=== PATIENT | female | born 1985 | race Caucasian/White ===

== ENCOUNTER 2016-05-10 11:38 | Emergency (ER) | payer MEDICAID, OTHER ==
[~2016-05-10 11:38] MED LIST: ACET50TA PO; CEPH2CAP PO; DOCU10ELUD PO; IBUP600T26 PO; MAXI0.1O OS; MOM30SS PO; [UNRECOGNIZED DRUG - OTHER] PO
[2016-05-10] MEDS ORDERED: KETOROLAC 30 MG/ML VIAL (J1885) As Ordered ONE (12:57)
--- NOTE | 2016-05-10 13:52 | EDDOCDS ---
Physician Documentation [facility] Name: Fabiana Hutchinson Age: 30 yrs Sex: Female : 1985 Arrival Date: 05/10/2016 Time: 11:38 Bed 13 Private MD: NO PRIMARY PHYSICIAN, . Disposition: 05/10/16 12:52 Discharged to Home/Self Care. Impression: Spasmodic torticollis. - Condition is Stable. - Discharge Instructions: Torticollis, Acute. - Prescriptions for Ibuprofen 600 mg Oral Tablet - take 1 tablet by ORAL route every 6 hours As needed take with food; 30 tablet. Cyclobenzaprine 10 mg Oral Tablet - take 1 tablet by ORAL route 3 times per day As needed; 15 tablet. - Medication Reconciliation, Local Pharmacy Hours form. - Follow up: [facility]; When: Call to arrange an appointment; Reason: Further diagnostic work-up, Continuance of care. - Problem is an ongoing problem. - Symptoms are unchanged. - Notes: ice 20min an hour Historical: - Allergies: PENICILLINS; - Home Meds: 1. Aleve Oral took 3 tabs (Last dose: 05/10/2016 10:00) - PMHx: none; - PSHx: cyst removed left wrist; - Social history: Smoking status: Patient states former smoker of tobacco. No barriers to communication noted, The patient speaks fluent Hebrew, Speaks appropriately for age. - Family history: Not pertinent. - : The pt / caregiver states he / she is not on anticoagulants. Home medication list is obtained from the patient. - Exposure Risk Screening:: None identified. 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 3 in. (160.02 cm) (R); Pain 10/10; 13:43 BP 140 / 96; Pulse 65; Resp 16; Temp 97.8; Pulse Ox 96% ; Pain 4/10; cjh 11:40 Body Mass Index 20.90 (53.52 kg, 160.02 cm) rs6 MDM: 12:49 ketorolac 60 mg IM once ordered. ke 12:49 Diazepam 10 mg IM once ordered. ke 13:03 Financial registration complete. 13:15 [facility] Payment Agreement was scanned into [employer] and attached to record. lg Administered Medications: 13:01 Drug: ketorolac 60 mg [ketorolac 30 mg/mL (1 mL) injection solution (2 mL)] Route: IM; pml Site: right gluteus; 13:01 Drug: Diazepam 10 mg [diazepam 5 mg/mL injection syringe (2 mL)] Route: IM; Site: left pml gluteus; Signatures: Julienne Paiz RN RN Brielle Espana, Jose Manuel Richard Raúl Kaminski, MARINE ENGINEERING PROFESSOR MARINE ENGINEERING PROFESSOR Ale Matute RN RN cjh Quay, Paulina RN [facility] The chart was reviewed and I authenticate all verbal orders and agree with the evaluation and treatment provided.Attachments: 13:15 [facility] Payment Agreement lg MTDD
--- NOTE | 2016-05-10 13:52 | EDDOCDS ---
Nurse's Notes [facility] Name: Fabiana Hutchinson Age: 30 yrs Sex: Female : 1985 Arrival Date: 05/10/2016 Time: 11:38 Bed 13 Private MD: NO PRIMARY PHYSICIAN, . Diagnosis: Spasmodic torticollis Presentation: 05/10 11:42 Presenting complaint: Patient states: right sided neck pain for 2 days after srm stretching. pain shoots down back . no numbness or tingling down arms. Risk Factors No acute neurological deficit is noted. Adult Sepsis Screening: The patient does not have new or worsening altered mentation. Patient's respiratory rate is less than 22. Systolic blood pressure is greater than 100. Patient has a qSOFA score of 0- Negative Sepsis Screen. Suicide/Homicide risk assessment- the patient denies having any suicidal and/or homicidal ideations and does not present with any other emotional, behavioral or mental health complaints. Status: Patient is not a shop service technician or dependent. Transition of care: patient was not received from another setting of care. 11:42 Acuity: ABHAY Level 4 [facility] 11:42 Method Of Arrival: Walkin/Carried/Asstd [facility] Triage Assessment: 11:43 General: Appears in no apparent distress, Behavior is appropriate for age, cooperative. srm Pain: Pain currently is 4 out of 10 on a pain scale. At worst was 10 out of 10 on a pain scale. HIV screening NA for this visit Offered previously. Musculoskeletal: Reports pain right side of necck. 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 Aleve Oral took 3 tabs (Last dose: 05/10/2016 10:00) - PMHx: none; - PSHx: cyst removed left wrist; - Social history: Smoking status: Patient states former smoker of tobacco. No barriers to communication noted, The patient speaks fluent Albanian, Speaks appropriately for age. - Family history: Not pertinent. - : The pt / caregiver states he / she is not on anticoagulants. Home medication list is obtained from the patient. - Exposure Risk Screening:: None identified. Screenin:43 Screening information is obtained from the patient. Fall risk: No risks identified. [facility] Assistance ADL's: requires no assistance with activities of daily living. Abuse/DV Screen: The patient / caregiver reports he/she is: not in a situation that causes fear, pain or injury. Nutritional screening: No deficits noted. Advance Directives: There is no active DNR order. home support is adequate. Assessment: 13:02 General: Appears in no apparent distress, comfortable. Pain: Location: neck Pain pml currently is 3 out of 10 on a pain scale. At worst was 10 out of 10 on a pain scale. Quality of pain is described as spasms. Neurological: Level of Consciousness is awake, alert, Oriented to person, place, time. Cardiovascular: Capillary refill < 3 seconds. Respiratory: Airway is patent Respiratory effort is even, unlabored. Derm: Skin is pink, warm & dry. 13:43 General: Appears in no apparent distress, uncomfortable, Behavior is appropriate for [facility] age, cooperative, reports pain and discomfort in neck, reviewed discharge instructions, reviewed medications, RICE and general guidelines, assisted with finding way to exit, patient states boyfriend is coming to get her and declines offer of additional assistance. Neurological: Level of Consciousness is awake, alert, Oriented to person, place, time, Pupils are PERRLA. Vital Signs: 11:40 BP 122 / 75 RA Sitting (auto/reg); Pulse 61; Resp 16; Temp 97.6(T); Pulse Ox 100% on rs6 R/A; Weight 53.52 kg (R); Height 5 ft. 3 in. (160.02 cm) (R); Pain 10/10; 13:43 BP 140 / 96; Pulse 65; Resp 16; Temp 97.8; Pulse Ox 96% ; Pain 4/10; [facility] 11:40 Body Mass Index 20.90 (53.52 kg, 160.02 cm) rs Vitals: 11:40 Log In Time: May 10, 2016 at 11:40. rs6 ED Course: 11:39 Patient visited by Madelyn Gomes PCA. rs6 11:39 Johnnie Mcgee is Private Physician. rs6 11:39 NO PRIMARY PHYSICIAN, . is Private Physician. rs6 11:39 Patient moved to Waiting rs6 11:40 Patient visited by Madelyn Gomes PCA. rs6 11:40 Patient moved to Pre RCE rs6 11:43 Triage Initiated srm 12:40 Raúl Kaminski FNP is [facility]. ke 12:40 Patient visited by Raúl Kaminski FNP. ke 12:[address] [facility] 12:52 [facility] is Referral Physician. ke 13:02 Patient visited by Kasey Montano RN. [facility] 13:15 [facility] Payment Agreement was scanned into [employer] and attached to record. 13:43 The patient / caregiver is instructed regarding the plan of care and ED course. [facility] 13:43 No IV's were initiated during this patient's visit. No procedures done that require [facility] assistance. Administered Medications: 13:01 Drug: ketorolac 60 mg [ketorolac 30 mg/mL (1 mL) injection solution (2 mL)] Route: IM; pml Site: right gluteus; 13:01 Drug: Diazepam 10 mg [diazepam 5 mg/mL injection syringe (2 mL)] Route: IM; Site: left pml gluteus; Order Results: There are currently no results for this order. Outcome: 12:52 Discharge ordered by Provider. 13:43 Discharge Assessment: Patient awake, alert and oriented x 3. No cognitive and/or [facility] functional deficits noted. Patient verbalized understanding of disposition instructions. patient administered narcotics - no. The following High Risk Discharge criteria are identified: None. Discharged to home ambulatory. Condition: good Condition: stable Condition: improved. No special radiology studies were completed. Property :Personal belongings accompany Pt. 13:51 Patient left the ED. [facility] Signatures: Julienne Paiz, PAL AGUILLON [facility] Brielle Harris, Reg Reg Raúl Kaminski FNP FNP Kasey Montano RN RN pml Hafner, Jane, RN RN [facility] Tiffanie Galvez Rebecca, ALEJANDRA REVENUE COORDINATOR rs6 MTDD
--- NOTE | 2016-05-12 14:52 | EDDOCDS ---
Physician Documentation [facility] Name: Fabiana Hutchinson Age: 30 yrs Sex: Female : 1985 Arrival Date: 05/10/2016 Time: 11:38 Bed 13 Private MD: NO PRIMARY PHYSICIAN, . Disposition: 05/10/16 12:52 Discharged to Home/Self Care. Impression: Spasmodic torticollis. - Condition is Stable. - Discharge Instructions: Torticollis, Acute. - Prescriptions for Ibuprofen 600 mg Oral Tablet - take 1 tablet by ORAL route every 6 hours As needed take with food; 30 tablet. Cyclobenzaprine 10 mg Oral Tablet - take 1 tablet by ORAL route 3 times per day As needed; 15 tablet. - Medication Reconciliation, Local Pharmacy Hours form. - Follow up: [facility]; When: Call to arrange an appointment; Reason: Further diagnostic work-up, Continuance of care. - Problem is an ongoing problem. - Symptoms are unchanged. - Notes: ice 20min an hour Historical: - Allergies: PENICILLINS; - Home Meds: 1. Aleve Oral took 3 tabs (Last dose: 05/10/2016 10:00) - PMHx: none; - PSHx: cyst removed left wrist; - Social history: Smoking status: Patient states former smoker of tobacco. No barriers to communication noted, The patient speaks fluent Occitan, Speaks appropriately for age. - Family history: Not pertinent. - : The pt / caregiver states he / she is not on anticoagulants. Home medication list is obtained from the patient. - Exposure Risk Screening:: None identified. 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 3 in. (160.02 cm) (R); Pain 10/10; 13:43 BP 140 / 96; Pulse 65; Resp 16; Temp 97.8; Pulse Ox 96% ; Pain 4/10; cjh 11:40 Body Mass Index 20.90 (53.52 kg, 160.02 cm) rs6 MDM: 12:49 ketorolac 60 mg IM once ordered. ke 12:49 Diazepam 10 mg IM once ordered. ke 13:03 Financial registration complete. 13:15 [facility] Payment Agreement was scanned into [employer] and attached to record. lg 05/11 12:15 T-Sheet-- Draft Copy was scanned into [employer] and attached to record. gb Administered Medications: 05/10 13:01 Drug: ketorolac 60 mg [ketorolac 30 mg/mL (1 mL) injection solution (2 mL)] Route: IM; pml Site: right gluteus; 13:01 Drug: Diazepam 10 mg [diazepam 5 mg/mL injection syringe (2 mL)] Route: IM; Site: left pml gluteus; Signatures: Julienne Paiz, RN RN [facility] Teagan Scott, Reg Reg gb Brielle Harris, Reg Reg lg Raúl Kaminski, BAG BLEACHER BAG BLEACHER Ale Matute RN RN cj Kasey Montano RN [facility] The chart was reviewed and I authenticate all verbal orders and agree with the evaluation and treatment provided.Attachments: 13:15 [facility] Payment Agreement lg 05/11 12:15 T-Sheet-- Draft Copy gb Chart Complete MTDD
--- NOTE | 2016-05-12 14:52 | EDDOCDS ---
Physician Documentation [facility] Name: Fabiana Hutchinson Age: 30 yrs Sex: Female : 1985 Arrival Date: 05/10/2016 Time: 11:38 Bed 13 Private MD: NO PRIMARY PHYSICIAN, . Disposition: 05/10/16 12:52 Discharged to Home/Self Care. Impression: Spasmodic torticollis. - Condition is Stable. - Discharge Instructions: Torticollis, Acute. - Prescriptions for Ibuprofen 600 mg Oral Tablet - take 1 tablet by ORAL route every 6 hours As needed take with food; 30 tablet. Cyclobenzaprine 10 mg Oral Tablet - take 1 tablet by ORAL route 3 times per day As needed; 15 tablet. - Medication Reconciliation, Local Pharmacy Hours form. - Follow up: [facility]; When: Call to arrange an appointment; Reason: Further diagnostic work-up, Continuance of care. - Problem is an ongoing problem. - Symptoms are unchanged. - Notes: ice 20min an hour Historical: - Allergies: PENICILLINS; - Home Meds: 1. Aleve Oral took 3 tabs (Last dose: 05/10/2016 10:00) - PMHx: none; - PSHx: cyst removed left wrist; - Social history: Smoking status: Patient states former smoker of tobacco. No barriers to communication noted, The patient speaks fluent Urdu, Speaks appropriately for age. - Family history: Not pertinent. - : The pt / caregiver states he / she is not on anticoagulants. Home medication list is obtained from the patient. - Exposure Risk Screening:: None identified. 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 3 in. (160.02 cm) (R); Pain 10/10; 13:43 BP 140 / 96; Pulse 65; Resp 16; Temp 97.8; Pulse Ox 96% ; Pain 4/10; cjh 11:40 Body Mass Index 20.90 (53.52 kg, 160.02 cm) rs6 MDM: 12:49 ketorolac 60 mg IM once ordered. ke 12:49 Diazepam 10 mg IM once ordered. ke 13:03 Financial registration complete. 13:15 [facility] Payment Agreement was scanned into [employer] and attached to record. lg 05/11 12:15 T-Sheet-- Draft Copy was scanned into [employer] and attached to record. gb Administered Medications: 05/10 13:01 Drug: ketorolac 60 mg [ketorolac 30 mg/mL (1 mL) injection solution (2 mL)] Route: IM; pml Site: right gluteus; 13:01 Drug: Diazepam 10 mg [diazepam 5 mg/mL injection syringe (2 mL)] Route: IM; Site: left pml gluteus; Signatures: Julienne Paiz, RN RN [facility] Teagan Scott, Reg Reg gb Brielle Harris, Reg Reg lg Raúl Kaminski, CONVEYOR FEEDER CONVEYOR FEEDER Ale Matute RN RN cj Kasey Montano RN [facility] The chart was reviewed and I authenticate all verbal orders and agree with the evaluation and treatment provided.Attachments: 13:15 [facility] Payment Agreement lg 05/11 12:15 T-Sheet-- Draft Copy gb Chart Complete MTDD
--- NOTE | 2016-05-12 14:53 | EDDOCDS ---
Nurse's Notes [facility] Name: Fabiana Hutchinson Age: 30 yrs Sex: Female : 1985 Arrival Date: 05/10/2016 Time: 11:38 Bed 13 Private MD: NO PRIMARY PHYSICIAN, . Diagnosis: Spasmodic torticollis Presentation: 05/10 11:42 Presenting complaint: Patient states: right sided neck pain for 2 days after srm stretching. pain shoots down back . no numbness or tingling down arms. Risk Factors No acute neurological deficit is noted. Adult Sepsis Screening: The patient does not have new or worsening altered mentation. Patient's respiratory rate is less than 22. Systolic blood pressure is greater than 100. Patient has a qSOFA score of 0- Negative Sepsis Screen. Suicide/Homicide risk assessment- the patient denies having any suicidal and/or homicidal ideations and does not present with any other emotional, behavioral or mental health complaints. Status: Patient is not a customer service rep or dependent. Transition of care: patient was not received from another setting of care. 11:42 Acuity: ABHAY Level 4 [facility] 11:42 Method Of Arrival: Walkin/Carried/Asstd [facility] Triage Assessment: 11:43 General: Appears in no apparent distress, Behavior is appropriate for age, cooperative. srm Pain: Pain currently is 4 out of 10 on a pain scale. At worst was 10 out of 10 on a pain scale. HIV screening NA for this visit Offered previously. Musculoskeletal: Reports pain right side of necck. 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 Aleve Oral took 3 tabs (Last dose: 05/10/2016 10:00) - PMHx: none; - PSHx: cyst removed left wrist; - Social history: Smoking status: Patient states former smoker of tobacco. No barriers to communication noted, The patient speaks fluent Namibian, Speaks appropriately for age. - Family history: Not pertinent. - : The pt / caregiver states he / she is not on anticoagulants. Home medication list is obtained from the patient. - Exposure Risk Screening:: None identified. Screenin:43 Screening information is obtained from the patient. Fall risk: No risks identified. [facility] Assistance ADL's: requires no assistance with activities of daily living. Abuse/DV Screen: The patient / caregiver reports he/she is: not in a situation that causes fear, pain or injury. Nutritional screening: No deficits noted. Advance Directives: There is no active DNR order. home support is adequate. Assessment: 13:02 General: Appears in no apparent distress, comfortable. Pain: Location: neck Pain pml currently is 3 out of 10 on a pain scale. At worst was 10 out of 10 on a pain scale. Quality of pain is described as spasms. Neurological: Level of Consciousness is awake, alert, Oriented to person, place, time. Cardiovascular: Capillary refill < 3 seconds. Respiratory: Airway is patent Respiratory effort is even, unlabored. Derm: Skin is pink, warm & dry. 13:43 General: Appears in no apparent distress, uncomfortable, Behavior is appropriate for [facility] age, cooperative, reports pain and discomfort in neck, reviewed discharge instructions, reviewed medications, RICE and general guidelines, assisted with finding way to exit, patient states boyfriend is coming to get her and declines offer of additional assistance. Neurological: Level of Consciousness is awake, alert, Oriented to person, place, time, Pupils are PERRLA. Vital Signs: 11:40 BP 122 / 75 RA Sitting (auto/reg); Pulse 61; Resp 16; Temp 97.6(T); Pulse Ox 100% on rs6 R/A; Weight 53.52 kg (R); Height 5 ft. 3 in. (160.02 cm) (R); Pain 10/10; 13:43 BP 140 / 96; Pulse 65; Resp 16; Temp 97.8; Pulse Ox 96% ; Pain 4/10; [facility] 11:40 Body Mass Index 20.90 (53.52 kg, 160.02 cm) rs Vitals: 11:40 Log In Time: May 10, 2016 at 11:40. rs6 ED Course: 11:39 Patient visited by Madelyn Gomes PCA. rs6 11:39 Johnnie Mcgee is Private Physician. rs6 11:39 NO PRIMARY PHYSICIAN, . is Private Physician. rs6 11:39 Patient moved to Waiting rs6 11:40 Patient visited by Madelyn Gomes PCA. rs6 11:40 Patient moved to Pre RCE rs6 11:43 Triage Initiated srm 12:40 Raúl Kaminski FNP is [facility]. ke 12:40 Patient visited by Raúl Kaminski FNP. ke 12:40 Patient moved to 13 sew 12:52 [facility] is Referral Physician. ke 13:02 Patient visited by Kasey Montano RN. pml 13:15 [facility] Payment Agreement was scanned into [employer] and attached to record. lg 13:43 The patient / caregiver is instructed regarding the plan of care and ED course. [facility] 13:43 No IV's were initiated during this patient's visit. No procedures done that require [facility] assistance. 05/11 12:15 T-Sheet-- Draft Copy was scanned into [employer] and attached to record. gb Administered Medications: 05/10 13:01 Drug: ketorolac 60 mg [ketorolac 30 mg/mL (1 mL) injection solution (2 mL)] Route: IM; pml Site: right gluteus; 13:01 Drug: Diazepam 10 mg [diazepam 5 mg/mL injection syringe (2 mL)] Route: IM; Site: left pml gluteus; Order Results: There are currently no results for this order. Outcome: 12:52 Discharge ordered by Provider. 13:43 Discharge Assessment: Patient awake, alert and oriented x 3. No cognitive and/or [facility] functional deficits noted. Patient verbalized understanding of disposition instructions. patient administered narcotics - no. The following High Risk Discharge criteria are identified: None. Discharged to home ambulatory. Condition: good Condition: stable Condition: improved. No special radiology studies were completed. Property :Personal belongings accompany Pt. 13:51 Patient left the ED. [facility] Signatures: Julienne Paiz, PAL AGUILLON [facility] Teagan Scott, Reg Reg Brielle Harris, Reg Reg Raúl Kaminski FNP FNP Kasey Montano RN RN pml Hafner, Jane, RN RN [facility] Tiffanie Galvez Rebecca, ALEJANDRA GEOCHEMICAL MANAGER rs6 Chart Complete MTDD
== END 2016-05-10 13:51 | disposition home or self-care (01) ==
LOC: M ED 11:38
DX: M43.6 Torticollis (principal); Z87.891 Personal history of nicotine dependence; Z88.0 Allergy status to penicillin
CPT/HCPCS: 96372; 99283; J1885; J3360

== ENCOUNTER 2016-11-11 20:55 | Emergency (ER) | payer OTHER ==
[~2016-11-11] VITALS: Ht 160 cm; Wt 52.3 kg
[2016-11-11] MEDS ORDERED: CLEO300C2 PO (22:57)
[2016-11-11] MEDS ORDERED: NORCO 5/325MG TABLET (BULK FOR ED) PO ONE (23:00)
[2016-11-11] MEDS ORDERED: CLINDAMYCIN 150 MG CAP PO ONE (23:00)
[2016-11-11] MEDS ORDERED: ADACEL/BOOSTRIX VACCINE (DIPHTH/PERTUSS/ACELL/TETANUS)0.5ML SYR (90715) IM ONE (23:00)
[2016-11-11 23:29] VITALS: BP 131/83
--- NOTE | 2016-11-12 09:43 | REP ---
Left foot four views : There is no fracture or dislocation. Mineralization and joint spaces are normal. There are no calcifications or foreign bodies. Impression: Negative left foot. No . Signed by Jose R Richardson MD 11/12/2016 07:56 A
== END 2016-11-11 23:31 | disposition home or self-care (01) ==
LOC: M ED 20:55
DX: S90.811A Abrasion, right foot, initial encounter (principal); S90.812A Abrasion, left foot, initial encounter; S90.31XA Contusion of right foot, initial encounter; S90.32XA Contusion of left foot, initial encounter; S61.441A Puncture wound with foreign body of right hand, initial encounter; S91.342A Puncture wound with foreign body, left foot, initial encounter; S91.341A Puncture wound with foreign body, right foot, initial encounter; W19.XXXA Unspecified fall, initial encounter; Y92.820 Desert as the place of occurrence of the external cause; Y93.9 Activity, unspecified; Y99.9 Unspecified external cause status; Z91.040 Latex allergy status; Z88.0 Allergy status to penicillin

== ENCOUNTER → 2017-03-08 | Outpatient (REF) | payer OTHER ==
[~2017-03-08] MED LIST changes: +CLEO300C2 PO
== END ==
LOC: M LAB REF 16:39
PROVIDERS: ATTEND Physician Assistant
DX: J02.0 Streptococcal pharyngitis (principal)

== ENCOUNTER 2020-05-27 20:21 | Emergency (ER) | payer OTHER ==
[~2020-05-27] VITALS: Ht 160 cm; Wt 54.5 kg
[~2020-05-27 20:21] MED LIST changes: -ACET50TA PO; -DOCU10ELUD PO; +DOCU5LIQ PO; +MAPA500T17 PO
--- OUTSIDE RECORDS SUMMARY | 2020-05-27 20:28 | CCD ---
Author Organization Unknown Address [address] [place] [id number] Phone [phone] Care Team Providers Care Farm Equipment Service Technician Name Role Phone [phone] Covid Nurse Unavailable Unavailable Allergies None recorded. Medications None recorded. Problems None recorded. Procedures None recorded. Results Lab Results Date Name Specimen Result Interpretation Description Value Range Status Address 04/10/2020 SARS CoV 2 RdRp Gene, QL Probe, Respiratory Spec imen Nasopharyngeal ABNORMAL Sars-cov-2 positive negative Final [facility]: [address] [place] [address] Past Encounters 04/10/2020 Exposure to SARS-CoV-2 Faith Loo PA-C: [address] [place] [phone], Ph. Social History None recorded. Vaccine List None recorded. Plan of Care Reminders Provider Appointments None recorded. Lab None recorded. Referral None recorded. Procedures None recorded. Surgeries None recorded. Imaging None recorded. Vitals None recorded.
--- OUTSIDE RECORDS SUMMARY | 2020-05-27 20:28 | CCD ---
Author Author [facility] Organization [facility] Address Unknown Phone Unavailable Care Team Providers Care Warp Trucker Name Role Phone Scordo, M Faith PA Unavailable Unavailable Scordo, M Faith PA Unavailable Unavailable Scordo, M Faith PA Unavailable Unavailable Scordo, M Faith PA Unavailable Unavailable Scordo, M Faith PA Unavailable Unavailable Scordo, M Faith PA Unavailable Unavailable Scordo, M Faith PA Unavailable Unavailable Scordo, M Faith PA Unavailable Unavailable Scordo, M Faith PA Unavailable Unavailable Scordo, M Faith PA Unavailable Unavailable Scordo, M Faith PA Unavailable Unavailable Scordo, M Faith PA Unavailable Unavailable Scordo, M Faith PA Unavailable Unavailable Scordo, M Faith PA Unavailable Unavailable Scordo, M Faith PA Unavailable Unavailable Scordo, M Faith PA Unavailable Unavailable Scordo, M Faith PA Unavailable Unavailable Scordo, M Faith PA Unavailable Unavailable Scordo, M Faith PA Unavailable Unavailable Scordo, M Faith PA Unavailable Unavailable Scordo, M Faith PA Unavailable Unavailable Scordo, M Faith PA Unavailable Unavailable Scordo, M Faith PA Unavailable Unavailable Scordo, M Faith PA Unavailable Unavailable Scordo, M Faith PA Unavailable Unavailable Scordo, M Faith PA Unavailable Unavailable Scordo, M Faith PA Unavailable Unavailable Scordo, M Faith PA Unavailable Unavailable Scordo, M Faith PA Unavailable Unavailable Scordo, M Faith PA Unavailable Unavailable Scordo, M Faith PA Unavailable Unavailable Scordo, M Faith PA Unavailable Unavailable Scordo, M Faith PA Unavailable Unavailable Scordo, M Faith PA Unavailable Unavailable Scordo, M Faith PA Unavailable Unavailable Scordo, M Faith PA Unavailable Unavailable Scordo, M Faith PA Unavailable Unavailable Scordo, M Faith PA Unavailable Unavailable Scordo, M Faith PA Unavailable Unavailable Scordo, M Faith PA Unavailable Unavailable Scordo, M Faith PA Unavailable Unavailable Scordo, M Faith PA Unavailable Unavailable Scordo, M Faith PA Unavailable Unavailable Re-disclosure Warning The records that you are about to access may contain information from federally-assisted alcohol or drug abuse programs. If such information is present, then the following federally mandated warning applies: This information has been disclosed to you from records protected by federal confidentiality rules (42 CFR part 2). The federal rules prohibit you from making any further disclosure of this information unless further disclosure is expressly permitted by the written consent of the person to whom it pertains or as otherwise permitted by 42 CFR part 2. A general authorization for the release of medical or other information is NOT sufficient for this purpose. The Federal rules restrict any use of the information to criminally investigate or prosecute any alcohol or drug abuse patient.The records that you are about to access may contain highly sensitive health information, the redisclosure of which is protected by Article 27-F of the [facility] Public Health law. If you continue you may have access to information: Regarding HIV / AIDS; Provided by facilities licensed or operated by the [facility] Office of Mental Health; or Provided by the [facility] Office for People With Developmental Disabilities. If such information is present, then the following [facility] mandated warning applies: This information has been disclosed to you from confidential records which are protected by state law. State law prohibits you from making any further disclosure of this information without the specific written consent of the person to whom it pertains, or as otherwise permitted by law. Any unauthorized further disclosure in violation of state law may result in a fine or [place] [facility] sentence or both. A general authorization for the release of medical or other information is NOT sufficient authorization for further disc losure. Allergies and Adverse Reactions Type Description Substance Reaction Status Data Source(s ) Allergy to substance Allergy to substance Allergy to substance [facility] ([facility]) Encounters Encounter Providers Location Date Indications Data Source(s ) Faith Loo PA-C: [address] [place] [id number], Ph. Attender: Faith CRESPO [facility] Medical 04/10/2020 12:00:00 AM EST [facility] ([facility]) Medications Medication Brand Name Start Date Product Form Dose Route Admi nistrative Instructions Pharmacy Instructions Status Indications Reaction Description Data Source(s) 500 mg 05/23/2020 12:00:00 AM EST tablet 14 TAKE ONE TABLET BY MOUTH EVERY 12 HOURS FOR 7 DAYS TAKE ONE TABLET BY MOUTH EVERY 12 HOURS FOR 7 DAYS [facility] 300 mg 12/14/2019 12:00:00 AM EDT capsule 20 TAKE ONE CAPSULE BY MOUTH EVERY 12 HOURS FOR 10 DAYS TAKE ONE CAPSULE BY MOUTH EVERY 12 HOURS FOR 10 DAYS S OLD: 12/17/2019 [facility] 150 mg 12/14/2019 12:00:00 AM EDT tablet 2 TAKE ONE TABLET BY MOUTH 1 TIME PER DAY, THEN TAKE 2ND TABLET IN 48 HOURS TAKE ONE TABLET BY MOUTH 1 TIME PER DAY, THEN TAKE 2ND TABLET IN 48 HOURS SOLD: 12/17/2019 [facility] Metronidazole 500 MG Oral Tablet METRONIDAZOLE 11/05/2019 12:0 0:00 AM EDT tablet 14 TAKE ONE TABLET BY MOUTH TWICE A DAY FOR 7 DAYS TAKE ONE TABLET BY MOUTH TWICE A DAY FOR 7 DAYS SOLD: 11/05/2019 [facility] Insurance Providers Payer name Policy type / Coverage type Policy ID Covered libertarian ID Covered libertarian's relationship to urias Policy Urias Plan Information [facility] [id number] SP [id number] [facility]) O [id number] S [id number] MEDICAID [id number] SP [id number] [employer] COMMUNITY PLAN MCDO [id number] SP [id number] [employer] [id number] SP [id number] O BLUE [id number] SP [id number] Results ID Date Data Source [id number] 04/10/2020 03:45:00 PM EST [facility] Name Value Range Interpretation Code Description Data Neli rce(s) Supporting Document(s) SARS coronavirus 2 RdRp gene [Presence] in Respiratory specimen by MAURICE with probe detection Detected [facility] This lab was ordered by [facility] and reported by [facility]. ID Date Data Source [id number] 04/10/2020 03:39:00 PM EST [facility] ([facility]) Name Value Range Interpretation Code Description Data Neli rce(s) Supporting Document(s) sars-cov-2 positive negative Abnormal (applies to non-num nam results) Sars-cov-2 [facility] ([facility]) Procedure
--- OUTSIDE RECORDS SUMMARY | 2020-05-27 21:13 | CCD ---
Author Author [facility] Organization [facility] Address Unknown Phone Unavailable Care Team Providers Care Independent Video Producer Name Role Phone Scordo, M Faith PA [...] is protected by Article 27-F of the [facility] Public Health law. If you continue you may have access to information: Regarding HIV / AIDS; Provided by facilities licensed or operated by the [facility] Office of Mental Health; or Provided by the [facility] Office for People With Developmental Disabilities. If such information is present, then the following [facility] mandated warning applies: This information has been [...] law may result in a fine or correction sentence or both. A general authorization for the release of medical or other information is NOT sufficient authorization for further disc losure. Allergies and Adverse Reactions Type Description Substance Reaction Status Data Source(s ) Allergy to substance Allergy to substance Allergy to substance [facility] ([facility]) Encounters Encounter Providers Location Date Indications Data Source(s ) LYNDSAY RogersC: [address] [place] [address], Ph. Attender: Faith KULKARNI [facility] Medical 04/10/2020 12:00:00 AM EST [facility] ([facility]) Medications Medication Brand Name Start Date Product [...] A DAY FOR 7 DAYS SOLD: 11/05/2019 [facility] Insurance Providers Payer name Policy type / Coverage type Policy ID Covered alliance party ID Covered alliance party's relationship to urias Policy Urias Plan Information [facility] [employer] [id number] SP [id number] [facility] O [id number] S [id number] MEDICAID [id number] SP [id number] [facility] [employer] [facility] [id number] SP [id number] [employer] [id number] SP [id number] [facility] [place] [id number] SP [id number] Results ID Date Data Source [id number] 04/10/2020 03:45:00 PM EST [facility] Name Value Range Interpretation Code Description Data Neli rce(s) Supporting Document(s) SARS coronavirus 2 RdRp gene [Presence] in Respiratory specimen by MAURICE with probe detection Detected [facility] This lab was ordered by [facility] and reported by [facility]. ID Date Data Source [id number] 04/10/2020 03:39:00 PM EST [facility] ([facility]) Name Value Range Interpretation Code Description Data Neli rce(s) Supporting Document(s) sars-cov-2 positive negative Abnormal (applies to non-num nam results) Sars-cov-2 [facility] ([facility]) Procedure
[2020-05-27] MEDS ORDERED: BACITRACIN OINTMENT 30GM TUBE TOP STA (21:46)
[2020-05-27] MEDS ORDERED: MORPHINE 4 MG/ML 1ML VIAL/SYRINGE (J2270) IV ONE ×2 (22:00→22:45)
[2020-05-27 22:18] LABS: BASO % 0.6 % (0.0-1.0); EOS # 0.3 10^3/uL (0.0-0.5); EOS % 3.9 % (0.0-3.0); HEMATOCRIT 40.4 % (36.0-47.0); HEMOGLOBIN 13.2 g/dl (12.0-15.5); LYMPH # 1.6 10^3/uL (1.5-5.0); MEAN CORPUSCULAR HEMOGLOBIN 29.6 pg (27.0-33.0); MEAN CORPUSCULAR HGB CONC 32.7 g/dl (32.0-36.5); MEAN CORPUSCULAR VOLUME 90.6 fl (80.0-96.0); MONO # 0.5 10^3/uL (0.0-0.8); MONO % 7.8 % (2.0-8.0); NEUTROPHILS % 62.1 % (36.0-66.0); PLATELET COUNT, AUTOMATED 259 10^3/uL (150-450); RED BLOOD COUNT 4.46 10^6/uL (4.00-5.40); WHITE BLOOD COUNT 6.5 10^3/uL (4.0-10.0)
[2020-05-27 22:44] LABS: ERYTHROCYTE SEDIMENTATION RATE 6 mm/hr (0-20)
[2020-05-27 22:45] VITALS: BP 115/77
[2020-05-27] MEDS ORDERED: GABAPENTIN 100 MG CAP PO ONE (22:45)
[2020-05-27] MEDS ORDERED: ONDANSETRON 4MG/2ML VIAL IV ONE (23:30)
[2020-05-27] MEDS ORDERED: NEUR100C PO (23:33)
[2020-05-27] MEDS ORDERED: PERC5TAB12 PO (23:33)
== END 2020-05-28 | disposition home or self-care (01) ==
LOC: M ED 20:21
DX: T34.822A Frostbite with tissue necrosis of left foot, initial encounter (principal); T34.821A Frostbite with tissue necrosis of right foot, initial encounter; X31.XXXA Exposure to excessive natural cold, initial encounter; Y92.017 Garden or yard in single-family (private) house as the place of occurrence of the external cause; Y93.9 Activity, unspecified; Y99.9 Unspecified external cause status; F17.200 Nicotine dependence, unspecified, uncomplicated; Z88.0 Allergy status to penicillin; Z91.040 Latex allergy status
CPT/HCPCS: 80047; 84702; 85025; 85652; 86140; 96374; 96375; 96376; 99283; J2270; J2405

== ENCOUNTER 2020-06-13 20:35 | Inpatient (IN) | payer OTHER ==
[~2020-06-13] VITALS: Ht 160 cm; Wt 55.5 kg
[~2020-06-13 20:35] MED LIST changes: +NEUR100C PO; +PERC5TAB12 PO
[2020-06-13] MEDS ORDERED: LORazepam 2 MG/ML VIAL IV STA (20:41)
[2020-06-13] MEDS ORDERED: ONDANSETRON 4MG/2ML VIAL As Ordered ONE (20:42)
[2020-06-13] MEDS ORDERED: LORazepam 2 MG/ML VIAL As Ordered ONE (20:43)
[2020-06-13] MEDS ORDERED: ONDANSETRON 4MG/2ML VIAL IV ONE (20:45)
[2020-06-13] MEDS ORDERED: NS 1,000 ML IV ONE ×2 (20:45→22:15)
[2020-06-13 21:14] LABS: BASO % 0.4 % (0.0-1.0); EOS # 0.3 10^3/uL (0.0-0.5); EOS % 3.1 % (0.0-3.0); HEMATOCRIT 40.2 % (36.0-47.0); HEMOGLOBIN 13.8 g/dl (12.0-15.5); LYMPH # 1.3 10^3/uL (1.5-5.0); LYMPH % 16.4 % (24.0-44.0); MEAN CORPUSCULAR HEMOGLOBIN 29.9 pg (27.0-33.0); MEAN CORPUSCULAR HGB CONC 34.3 g/dl (32.0-36.5); MONO # 0.4 10^3/uL (0.0-0.8); NEUTROPHILS # 5.8 10^3/uL (1.5-8.5); NEUTROPHILS % 71.7 % (36.0-66.0); PLATELET COUNT, AUTOMATED 277 10^3/uL (150-450); RED BLOOD COUNT 4.62 10^6/uL (4.00-5.40)
--- NOTE | 2020-06-13 21:47 | REPVR ---
PROCEDURE INFORMATION: Exam: CT Head Without Contrast Exam date and time: 06/13/2020 9:15 PM Age: 34 years old Clinical indication: Altered mental status/memory loss; Confusion or disorientation; Additional info: Altered mental, possible trauma TECHNIQUE: Imaging protocol: Computed tomography of the head without contrast. Radiation optimization: All CT scans at this facility use at least one of these dose optimization techniques: automated exposure control; mA and/or kV adjustment per patient size (includes targeted exams where dose is matched to clinical indication); or iterative reconstruction. COMPARISON: No relevant prior studies available. FINDINGS: Brain: Unremarkable. No hemorrhage. Unremarkable white matter. No mass effect. Cerebral ventricles: No ventriculomegaly. Bones/joints: Unremarkable. No acute fracture. Paranasal sinuses: Visualized sinuses are unremarkable. No fluid levels. Mastoid air cells: Visualized mastoid air cells are well aerated. Soft tissues: Unremarkable. IMPRESSION: No acute intracranial abnormality. Electronically signed by: Wing Marie On 06/13/2020 21:48:35 PM
[2020-06-13 21:48] LABS: HCG, SERUM QUALITATIVE NEGATIVE (NEGATIVE)
[2020-06-13 21:50] LABS: OSMOLALITY SERUM 293 MOSM/KG (275-295)
--- NOTE | 2020-06-13 21:53 | REPVR ---
PROCEDURE INFORMATION: Exam: CT Cervical Spine Without Contrast Exam date and time: 06/13/2020 9:15 PM Age: 34 years old Clinical indication: Other: Altered mental; Additional info: Altered mental possible trauma TECHNIQUE: Imaging protocol: Computed tomography images of the cervical spine without contrast. Radiation optimization: All CT scans at this facility use at least one of these dose optimization techniques: automated exposure control; mA and/or kV adjustment per patient size (includes targeted exams where dose is matched to clinical indication); or iterative reconstruction. COMPARISON: No relevant prior studies available. FINDINGS: Bones/joints: No fracture or malalignment. Facet joints are unremarkable. Discs/Spinal canal/Neural foramina: Mild disc degeneration with small disc osteophyte complex at C5-C6. Remaining disc spaces are unremarkable. No spinal stenosis. Lungs: Lung apices are normal. Soft tissues: Unremarkable. IMPRESSION: 1. No cervical spine fracture or malalignment. 2. Mild degenerative spondylosis. Electronically signed by: Wing Marie On 06/13/2020 21:54:26 PM
--- NOTE | 2020-06-13 21:55 | REPVR ---
PROCEDURE INFORMATION: Exam: XR Chest Exam date and time: 06/13/2020 9:47 PM Age: 34 years old Clinical indication: Chest pain; Additional info: Drug overdose TECHNIQUE: Imaging protocol: XR of the chest Views: 1 view. COMPARISON: No relevant prior studies available. FINDINGS: Lungs: Unremarkable. No consolidation. Pleural spaces: Unremarkable. No pleural effusion. No pneumothorax. Heart/Mediastinum: Unremarkable. No cardiomegaly. Bones/joints: Unremarkable. IMPRESSION: No acute findings. Electronically signed by: Wing Marie On 06/13/2020 21:55:42 PM
[2020-06-13 23:04] LABS: ACETAMINOPHEN LEVEL < 2.0 UG/ML (10.0-30.0); ALBUMIN 4.1 GM/DL (3.2-5.2); ALT/SGPT 27 U/L (12-78); BILIRUBIN,DIRECT 0.1 MG/DL (0.0-0.2); BILIRUBIN,TOTAL 0.4 MG/DL (0.2-1.0); BLOOD UREA NITROGEN 16 MG/DL (7-18); CALCIUM LEVEL 9.5 MG/DL (8.5-10.1); CARBON DIOXIDE LEVEL 16 MEQ/L (21-32); CHLORIDE LEVEL 106 MEQ/L (98-107); CPK CREATINE PHOSPHOKINASE 318 U/L (26-192); CREATININE FOR GFR 1.67 MG/DL (0.55-1.30); ETHYL ALCOHOL (ETHANOL) < 0.003 % (0.000-0.010); GLUCOSE, FASTING 132 MG/DL (70-100); POTASSIUM SERUM 3.7 MEQ/L (3.5-5.1); SALICYLATE LEVEL 1.7 MG/DL (5.0-30.0); SODIUM LEVEL 138 MEQ/L (136-145); TOTAL PROTEIN 7.5 GM/DL (6.4-8.2)
--- NOTE | 2020-06-13 23:58 | HPEPDOC ---
[facility] Medical History & Physical Date of Admission Jun 13, 2020 Date of Service: Jun 13, 2020 History and Physical CHIEF COMPLAINT: Altered mental status HISTORY OF PRESENT ILLNESS: This is a 34-year-old female who presented to the hospital because of altered mentation. EMS was called by her children because patient was acting strange at home. Initially I'm told the patient was very confused when she came to the hosp ital but over the ensuing hours while in the emergency department she improved and was able to answer questions. She states that she was having an argument involving her kids and ex- at home. EMS was told there is questionable white substance that was found at home. Patient states she has memory loss and does not remember the events that led to her coming to the hospital but states that she slowly remembering. She believes she had a nervous breakdown because of her fight with her kid. It was reported to me that her temperature by EMS was found to be 105. In the ED her temperature is 100.2. She does have some tachycardia. Patient denies history of seizures she denies biting her tongue losing control of her bowels or urine. There is no reports that she was seen at home having seizure-like activity. Patient admits to me that she uses cocaine and used a few times this week but can't tell me when she does recall that she was Adderall prior to the events this evening. She denies any chest pain or shortness of breath denies abdominal discomfort or pain denies nausea or vomiting admits to mild headache. Denies dysuria. PAST MEDICAL/SURGICAL HISTORY: Patient denies any medical history Frostbite of feet follows with Dr. Olmstead Ganglion cyst removal left hand SOCIAL HISTORY: Endorses occasional alcohol use denies that she gets withdrawals from alcohol Endorses smoking about 1 pack per day tobacco Endorses occasional cannabis use as well as nonprescription Adderall as well as occasional cocaine use. States she last used cocaine this week unsure when her last use Adderall within the past 24 hours. FAMILY HISTORY: Reviewed and none contributory to this admission ALLERGIES: Please see below. REVIEW OF SYSTEMS: 10 point review of systems complete all negative otherwise stated in HPI HOME MEDICATIONS: Please see below. PHYSICAL EXAMINATION: Constitutional: Awake and alert, in no apparent distress, answering all my questions appropriately ENT: Sclera are clear. Respiratory: Lungs CTA bilaterally. No respiratory distress. No use of accessory muscles. Cardiovascular: Sinus tachycardia S1 and S2 are normal, no murmur Gastrointestinal: Abdomen is soft, non distended, non tender, BS present. Musculoskeletal: No lower extremity edema. RUE 5/5, LUE 5/5, BLE 5/5 Neurologic: No focal neurological deficit. There is some very subtle horizontal nystagmus in both eyes when testing H test for eye movement. Mental Status: A&O x3, normal affect Skin: Warm, dry LABORATORY DATA: See below. IMAGING: See chart MICROBIOLOGY: Please see below. ASSESSMENT/PLAN 34-year-old female admitted for observation due to altered mental status thought to be possibly secondary to drug intoxication versus seizure. Also found to have acute kidney injury. # Altered mental status: Unclear what caused patient's episode of amnesia and altered mental status. At the time of admission patient appears to have recovered from this episode is alert and oriented 3. There is a question of drug intoxication she does admit to Adderall and cocaine use we are waiting for the urine toxicology screen. She also uses opiates and accommodation gabapentin at home. She denies any suicidal ideations and believes she had a panic attack because of stress with her ex- and kids. There is also a question of possible seizure disorder but this is less likely. If the urine tox culture screen is unrevealing morning team can consider an EEG. Supportive management for now. Admit for observation on telemetry. # Tachycardia: This is likely related to her differential above. I expect it to resolve with supportive management. She is also getting IVF. She had a low-grade fever 100.2 in the ED. Follow-up on urinalysis which is pending. Chest x-ray has no acute findings. Patient denies chest pain or palpitations. # CARMEN: Baseline unknown, given her age and no medical history this is likely CARMEN. Fu renal US. Fu FeNa. IVFs. Avoid nephrotoxins. # CPK Elevated: Fu repeat in the a.m, if she had downtime or seizure or drug use such as cocaine this an continue to rise and she's at risk of developing rhabdomyolysis. IVFs. # DVT prophylaxis: Heparin A Yousef Hospitalist Vital Signs Vital Signs Date Time Temp Pulse Resp B/P (MAP) Pulse Ox O2 Delivery O2 Flow Rate FiO2 06/13/20 21:29 118 16 109/59 (76) 98 06/13/20 20:38 100.2 Room Air Laboratory Data Labs 24H Laboratory Tests 2 06/13/20 20:52: Immature Granulocyte % (Auto) 3.4H, Neutrophils (%) (Auto) 71.7H, Lymphocytes (%) (Auto) 16.4L, Monocytes (%) (Auto) 5.0, Eosinophils (%) (Auto) 3.1H, Basophils (%) (Auto) 0.4, Neutrophils # (Auto) 5.8, Lymphocytes # (Auto) 1.3L, Monocytes # (Auto) 0.4, Eosinophils # (Auto) 0.3, Basophils # (Auto) 0.0, Nucleated Red Blood Cells % (auto) 0.0, Anion Gap 16, Glomerular Filtration Rate 37.0L, Osmolality 293, Lactic Acid Level < 0.1L, Calcium Level 9.5, Total Bilirubin 0.4, Direct Bilirubin 0.1, Aspartate Amino Transf (AST/SGOT) 41H, Alanine Aminotransferase (ALT/SGPT) 27, Alkaline Phosphatase 70, Total Creatine Kinase 318H, Total Protein 7.5, Albumin 4.1, Albumin/Globulin Ratio 1.2, Thyroid Stimulating Hormone (TSH) 5.550H, Human Chorionic Gonadotropin, Qual NEGATIVE, Salicylates Level 1.7L, Acetaminophen Level < 2.0L, Ethyl Alcohol Level < 0.003 06/13/20 23:37: 06/13/20 23:45: CBC/BMP Laboratory Tests 06/13/20 20:52 Home Medications No Active Prescriptions or Reported Meds Allergies Coded Allergies: Penicillins (Verified Allergy, Intermediate, HIVES, 05/27/20) latex (Verified Allergy, Intermediate, HIVES, 05/27/20) A-FIB/CHADSVASC A-FIB History Current/History of A-Fib/PAF?: No YOUSEANGELICA Albert MD Jun 13, 2020 23:58
[2020-06-14 00:32] LABS: RSV AMPLIFICATION NEGATIVE (NEGATIVE)
--- NOTE | 2020-06-14 00:41 | REPVR ---
PROCEDURE INFORMATION: Exam: US Retroperitoneal Limited, Kidneys Exam date and time: 06/14/2020 12:31 AM Age: 34 years old Clinical indication: Abnormal findings; Abnormal lab test; Abnormal kidney function lab tests; Additional info: Acute kidney injury TECHNIQUE: Imaging protocol: Real-time ultrasound of the retroperitoneum with image documentation. Examination was focused on the kidneys. COMPARISON: No relevant prior studies available. FINDINGS: Right kidney: Right kidney measures 10.9 cm. No stones. No hydronephrosis. Normal cortical thickness and echotexture. Left kidney: Left kidney measures 10.4 cm. No stones. No hydronephrosis. Normal cortical thickness and echotexture. Bladder: Urinary bladder is unremarkable. IMPRESSION: No acute findings. Electronically signed by: Wing Marie On 06/14/2020 00:41:16 AM
[2020-06-14 00:43] LABS: AMPHETAMINES LEVEL URINE POSITIVE (NEGATIVE); BARBITURATES URINE NEGATIVE (NEGATIVE); BENZODIAZEPINES URINE NEGATIVE (NEGATIVE); CANNABINOIDS URINE NEGATIVE (NEGATIVE); COCAINE METABOLITE URINE POSITIVE (NEGATIVE); METHADONE URINE NEGATIVE (NEGATIVE); OPIATES URINE NEGATIVE (NEGATIVE); PHENCYCLIDINE URINE NEGATIVE (NEGATIVE)
[2020-06-14] MEDS: NS 1,000 ML IV SCH ×4 (00:45→23:38)
[2020-06-14 01:36] VITALS: BP 86/50
[2020-06-14 06:00] VITALS: BP 97/60
[2020-06-14 06:30] LABS: HEMATOCRIT 34.5 % (36.0-47.0); HEMOGLOBIN 11.9 g/dl (12.0-15.5); MEAN CORPUSCULAR HEMOGLOBIN 30.7 pg (27.0-33.0); MEAN CORPUSCULAR HGB CONC 34.5 g/dl (32.0-36.5); MEAN CORPUSCULAR VOLUME 89.1 fl (80.0-96.0); PLATELET COUNT, AUTOMATED 178 10^3/uL (150-450); RED BLOOD COUNT 3.87 10^6/uL (4.00-5.40); WHITE BLOOD COUNT 13.7 10^3/uL (4.0-10.0)
[2020-06-14 07:21] LABS: ALBUMIN 3.1 GM/DL (3.2-5.2); ALT/SGPT 61 U/L (12-78); BILIRUBIN,TOTAL 1.2 MG/DL (0.2-1.0); BLOOD UREA NITROGEN 17 MG/DL (7-18); CALCIUM LEVEL 7.6 MG/DL (8.5-10.1); CARBON DIOXIDE LEVEL 21 MEQ/L (21-32); CHLORIDE LEVEL 113 MEQ/L (98-107); CPK CREATINE PHOSPHOKINASE 3574 U/L (26-192); CREATININE FOR GFR 1.08 MG/DL (0.55-1.30); GLOMERULAR FILTRATION RATE > 60.0 (>60); GLUCOSE, FASTING 102 MG/DL (70-100); MAGNESIUM LEVEL 2.1 MG/DL (1.8-2.4); POTASSIUM SERUM 3.1 MEQ/L (3.5-5.1); SODIUM LEVEL 142 MEQ/L (136-145); TOTAL PROTEIN 5.6 GM/DL (6.4-8.2)
[2020-06-14] MEDS ORDERED: POTASSIUM CHLORIDE 10 MEQ SR TABLET PO ONE (08:30)
[2020-06-14] MEDS: HEPARIN SOD (PORCINE) 5000UNITS/ML 1ML VIAL/SYRINGE SC SCH ×3 (09:00→20:12)
[2020-06-14] MEDS: LevoFLOXacin 500 MG TABLET PO SCH (09:07)
[2020-06-14] MEDS: ACETAMINOPHEN TAB 650MG DOSE (2X325MG) PO PRN ×2 (13:55→20:18)
[2020-06-14 14:00] VITALS: BP 112/77
--- NOTE | 2020-06-14 16:09 | IPNPDOC ---
Date Seen The patient was seen on 06/14/20. Progress Note SUBJECTIVE: Claims to have seizure-like movements with head snapping back when she was being taken out of her house, does not remember leaving her shravan. ? seizure with increased CK. Denies daily use of illicit drug, alcohol or having withdrawl symptoms prior to this episode happening. Hypotensive overnight, increased fluids today. Currently is more AAOx3, improving slowly. OBJECTIVE: PHYSICAL EXAMINATION: VS: Please see below Constitutional: NAD, resting in bed. AAOX3 ENT: Sclera are clear. Respiratory: Lungs CTA bilaterally. No respiratory distress. No use of accessory muscles. Cardiovascular: NSR, S1 and S2 are normal, no murmur Gastrointestinal: Abdomen is soft, non distended, non tender, BS present. Musculoskeletal: No lower extremity edema. RUE 5/5, LUE 5/5, BLE 5/5 Neurologic: No focal neurological deficit. CN2-12 intact. no sensory or motor impairment Skin: Warm, dry Psych: mood and affect appropriate LABORATORY DATA: See below. IMAGING: See chart MICROBIOLOGY: Please see below. ASSESSMENT: 34-year-old female admitted for observation due to altered mental status thought to be possibly secondary to drug intoxication versus seizure. Also found to have acute kidney injury. PLAN: Altered mental status poss 2/2 to seizure vs. drug/toxic encephalopathy -No seizure-like activity but describes seizure-like activity, drug use, LOC, incr CK. No seizure hx -UDS + for amphetamines, cocaine- states last used several days ago. -As cause appears transient and patient is much improved today with IVF hydration and rest, will not order EEG -C/w IVFs, monitoring, encouraging PO fluids and food Tachycardia likely 2/2 to intoxication to above, dehydration, agitation (possibly some kind of withdrawl?), UTI-resolved -Improving with increased IVFs -Started on Ceftriaxone UTI -+ UA -UCx pending -Ceftriaxone daily, tailor to culture sensitivities Polysubstance illicit drug use -Amphetamines, cocaine -Monitor for s/s of withdrawl, currently none CPK Elevated cannot r/o 2/2 to spasming, seizures, drug use -F/u level in the AM -C/w IVFs DVT prophylaxis: Heparin Resolved issues: CARMEN DISPOSITION: Monitoring for another day, improving quickly. Hopeful for discharge on 06/15/20. VS, I&O, 24H, [facility] Vital Signs/I&O Vital Signs Date Time Temp Pulse Resp B/P (MAP) Pulse Ox O2 Delivery O2 Flow Rate FiO2 06/14/20 14:00 96.9 83 18 112/77 (89) 100 06/14/20 01:36 Room Air I&O- Last 24 Hours up to 6 AM 06/14/20 05:59 Intake Total 3000 ml Balance 3000 ml Laboratory Data 24H LABS Laboratory Tests 2 06/13/20 20:52: Immature Granulocyte % (Auto) 3.4H, Neutrophils (%) (Auto) 71.7H, Lymphocytes (%) (Auto) 16.4L, Monocytes (%) (Auto) 5.0, Eosinophils (%) (Auto) 3.1H, Basophils (%) (Auto) 0.4, Neutrophils # (Auto) 5.8, Lymphocytes # (Auto) 1.3L, Monocytes # (Auto) 0.4, Eosinophils # (Auto) 0.3, Basophils # (Auto) 0.0, Nucleated Red Blood Cells % (auto) 0.0, Anion Gap 16, Glomerular Filtration Rate 37.0L, Osmolality 293, Lactic Acid Level < 0.1L, Calcium Level 9.5, Total Bilirubin 0.4, Direct Bilirubin 0.1, Aspartate Amino Transf (AST/SGOT) 41H, Alanine Aminotransferase (ALT/SGPT) 27, Alkaline Phosphatase 70, Total Creatine Kinase 318H, Total Protein 7.5, Albumin 4.1, Albumin/Globulin Ratio 1.2, Thyroid Stimulating Hormone (TSH) 5.550H, Human Chorionic Gonadotropin, Qual NEGATIVE, Salicylates Level 1.7L, Urine Opiates Screen NEGATIVE, Urine Methadone Screen NEGATIVE, Acetaminophen Level < 2.0L, Urine Barbiturates Screen NEGATIVE, Urine Phencyclidine Screen NEGATIVE, Urine Amphetamines Screen POSITIVEH, Urine Benzodiazepines Screen NEGATIVE, Urine Cocaine Metabolite Screen POSITIVEH, Urine Cannabinoids Screen NEGATIVE, Ethyl Alcohol Level < 0.003 06/13/20 23:37: Coronavirus (COVID-19)(PCR) NEGATIVE, Influenza Type A (RT-PCR) NEGATIVE, I nfluenza Type B (RT-PCR) NEGATIVE, Respiratory Syncytial Virus (PCR) NEGATIVE 06/13/20 23:45: Urine Color YELLOW, Urine Appearance CLOUDYH, Urine pH 5.0, Urine Specific [place] 1.011, Urine Protein 2+H, Urine Glucose (UA) 1+H, Urine Ketones NEGATIVE, Urine Blood 2+H, Urine Nitrite NEGATIVE, Urine Bilirubin NEGATIVE, Urine Urobilinogen 0.2, Urine Leukocyte Esterase NEGATIVE, Urine WBC (Auto) 13H, Urine RBC (Auto) 9H, Urine Hyaline Casts (Auto) 0, Urine Bacteria (Auto) 1+H, Ur ine Squamous Epithelial Cells 6, Urine Mucus (Auto) SMALL, Urine Sperm (Auto) 06/14/20 05:35: Nucleated Red Blood Cells % (auto) 0.0, Anion Gap 8, Glomerular Filtration Rate > 60.0, Calcium Level 7.6#L, Total Bilirubin 1.2#H, Aspartate Amino Transf (AST/SGOT) 160H, Alanine Aminotransferase (ALT/SGPT) 61, Alkaline Phosphatase 61, Total Creatine Kinase 3574#H, Total Protein 5.6#L, Albumin 3.1#L, Albumin/Globulin Ratio 1.2, Magnesium Level 2.1 CBC/BMP Laboratory Tests 06/13/20 20:52 06/14/20 05:35 Microbiology Microbiology 06/13/20 Urine Culture, Received Pending Current Medications Current Medications Medications (Trade) Dose Ordered Sig/Fara Route PRN Reason Start Time Stop Time Status Last Admin Dose Admin Acetaminophen (Tylenol Tab) 650 mg Q4H PRN PO PAIN OR FEVER 06/14/20 00:00 06/14/20 13:55 Heparin Sodium (Porcine) (Heparin) 5,000 units Q12H SC 06/14/20 09:00 Home Med (Med Rec Complete!) ASDIRECTED XX 06/14/20 01:00 06/14/20 00:59 DC Levofloxacin (Levaquin) 500 mg DAILY@06 PO 06/14/20 06:00 06/14/20 09:07 Lorazepam (Ativan) 2 mg STAT STAT IV 06/13/20 20:41 06/13/20 20:42 DC 06/13/20 21:28 Sodium Chloride 1,000 ml @ 150 mls/hr Q6H40M IV 06/14/20 00:00 06/14/20 09:02 Allergies Coded Allergies: Penicillins (Verified Allergy, Intermediate, HIVES, 05/27/20) latex (Verified Allergy, Intermediate, HIVES, 05/27/20) Marleny Swartz MD Jun 14, 2020 16:09
[2020-06-14] MEDS: CALCIUM CARBONATE 500 MG CHEW U/D PO PRN (17:43)
[2020-06-14 18:29] LABS: CREATININE,RANDOM URINE 36.3 MG/DL
--- NOTE | 2020-06-14 18:44 | ECGEPIP ---
[facility] - ED Test Date: 2020-06-13 Pat Name: CHARISSE FISHER Department: Room: [place] [address] Gender: Female Manager Life: RAÚL : 1985 Requested By: DEAN Norman Order Number: [id number] Reading MD: Tiffanie Pinto Measurements Intervals [place] Rate: 126 P: 61 CA: 128 QRS: 81 QRSD: 76 T: 54 QT: 318 QTc: 460 Interpretive Statements Sinus tachycardia Cannot rule out Anterior infarct , age undetermined nsttw abnormality vs artifact baseline artifact may affect interpretation No prior Electronically Signed on 06-14-2020 18:44:37 EST by Tiffanie Pinto
[2020-06-14 22:00] VITALS: BP 116/71
[2020-06-15] MEDS: CALCIUM CARBONATE 500 MG CHEW U/D PO PRN ×2 (00:27→09:13)
[2020-06-15 06:00] VITALS: BP 115/74
[2020-06-15] MEDS: NS 1,000 ML IV SCH (06:19)
[2020-06-15] MEDS: LevoFLOXacin 500 MG TABLET PO SCH (06:19)
[2020-06-15 07:47] LABS: HEMATOCRIT 34.9 % (36.0-47.0); HEMOGLOBIN 11.7 g/dl (12.0-15.5); MEAN CORPUSCULAR HEMOGLOBIN 29.8 pg (27.0-33.0); MEAN CORPUSCULAR HGB CONC 33.5 g/dl (32.0-36.5); PLATELET COUNT, AUTOMATED 152 10^3/uL (150-450); RED BLOOD COUNT 3.92 10^6/uL (4.00-5.40)
[2020-06-15 08:25] LABS: ALBUMIN 2.8 GM/DL (3.2-5.2); ALT/SGPT 1753 U/L (12-78); BILIRUBIN,TOTAL 0.9 MG/DL (0.2-1.0); BLOOD UREA NITROGEN 8 MG/DL (7-18); CALCIUM LEVEL 7.3 MG/DL (8.5-10.1); CARBON DIOXIDE LEVEL 22 MEQ/L (21-32); CHLORIDE LEVEL 112 MEQ/L (98-107); CPK CREATINE PHOSPHOKINASE 4805 U/L (26-192); CREATININE FOR GFR 0.66 MG/DL (0.55-1.30); GLOMERULAR FILTRATION RATE > 60.0 (>60); GLUCOSE, FASTING 74 MG/DL (70-100); POTASSIUM SERUM 3.4 MEQ/L (3.5-5.1); SODIUM LEVEL 140 MEQ/L (136-145)
[2020-06-15] MEDS ORDERED: PANTOPRAZOLE 40MG VIAL (C9113 PER 1) IV SCH (09:00)
[2020-06-15] MEDS: KCL 10MEQ/100ML SWI (KRUN) 10 MEQ in IV 1 EA IV SCH ×3 (09:32→12:22)
[2020-06-15] MEDS: ONDANSETRON 4MG/2ML VIAL IV SCH ×3 (09:33→22:11)
[2020-06-15 09:44] LABS: INR 2.29; PARTIAL THROMBOPLASTIN TIME 34.3 SECONDS (24.2-38.5); PROTHROMBIN TIME 25.7 SECONDS (12.5-14.3)
[2020-06-15] MEDS ORDERED: PROMETHAZINE INJ 25 MG/ML VIAL (J2550) IM ONE (09:45)
[2020-06-15] MEDS ORDERED: POTASSIUM CHLORIDE 10 MEQ SR TABLET PO ONE (10:00)
[2020-06-15] MEDS ORDERED: PROMETHAZINE INJ 25 MG/ML VIAL (J2550) IV PRN (10:20)
[2020-06-15] MEDS ORDERED: PROMETHAZINE INJ 25 MG/ML VIAL (J2550) IV ONE (10:30)
[2020-06-15] MEDS ORDERED: D5/0.9%NACL 1000ML IV ONE (11:05)
[2020-06-15] MEDS: D5W/0.9% SODIUM CHLORIDE 1,000 ML IV SCH ×2 (11:46→18:10)
--- NOTE | 2020-06-15 12:26 | REP ---
INDICATION: hematemesis, abdominal pain COMPARISON: None TECHNIQUE: Axial noncontrast images from the lung bases to the pubic symphysis with coronal and sagittal reformations. This CT examination was performed using the following dose reduction techniques: Automated exposure control, adjustment of mA and/or kv according to the patient's size, and use of iterative reconstruction technique. FINDINGS: Lung bases demonstrate very small pleural effusions and associated dependent atelectasis (right greater than left). Liver, spleen, pancreas, gallbladder, and bilateral adrenal glands appear normal for noncontrast evaluation. Kidneys demonstrate few bilateral nonobstructing nephroliths up to 2 mm without perinephric stranding, hydroureteronephrosis or obstructing ureteral calculus.. The enteric system is unremarkable and without obstruction or acute inflammatory process. Normal terminal ileum and appendix identified in the right lower quadrant. Pelvis demonstrates normal bladder and age-appropriate uterus/adnexa. Small amount of pelvic fluid likely physiologic. No ascites. No free air. No adenopathy. No focal inflammatory stranding. Abdominal aorta without aneurysm. Musculoskeletal structures are intact and without acute osseous abnormality. IMPRESSION: No acute abdominopelvic pathology appreciated. Lung bases demonstrate very small pleural effusions and minimal dependent atelectasis. <Electronically signed by Demetrio Mendieta > 06/15/20 [id number]
[2020-06-15] MEDS ORDERED: GLUCAGON INJ 1MG VIAL SC PRN (12:30)
[2020-06-15] MEDS ORDERED: GLUCOSE 4GM CHEW TABLET PO PRN (12:30)
[2020-06-15] MEDS ORDERED: DEXTROSE 50% 50 ML SYRINGE IV PRN (12:30)
--- NOTE | 2020-06-15 12:37 | IPNPDOC ---
Date Seen The patient was seen on 06/15/20. Progress Note SUBJECTIVE: Discussed with Poison Control today, some concern for hepatic injury (i.e. tylenol?) recommended starting some N-acetylcysteine. Ordered that, awaiting call back with information from their furniture polisher. Nauseous with some concern of "orange-colored vomitus", High INR. H/H stable, CT abd/pelvis ordered. Stopped heparin SC, IVFs changed to D5 due to low BS. Still AAOx3, denies abdo tianna pain. OBJECTIVE: PHYSICAL EXAMINATION: VS: Please see below Constitutional: NAD, resting in bed. AAOX3 ENT: Sclera are clear. Respiratory: Lungs CTA bilaterally. No respiratory distress. No use of accessory muscles. Cardiovascular: NSR, S1 and S2 are normal, no murmur Gastrointestinal: Abdomen is soft, non distended, non tender, BS present. Musculoskeletal: No lower extremity edema. RUE 5/5, LUE 5/5, BLE 5/5 Neurologic: No focal neurological deficit. CN2-12 intact. no sensory or motor impairment Skin: Warm, dry Psych: mood and affect appropriate LABORATORY DATA: See below. IMAGING: See chart MICROBIOLOGY: Please see below. ASSESSMENT: 34-year-old female admitted for observation due to altered mental status thought to be possibly secondary to drug intoxication versus seizure, hepatitis r/o etiology. PLAN: Acute hepatitis, r/o ischemic vs. hepatic injury 2/2 to drug use -Concern is trend toward hepatic failure -INR 2.29, AAOx3 but AST 160--> 2762, ALT 61--> 1753 over 24 hours. -Tylenol level, salicylate level on admission low/neg -Hx of cocaine/ amphetamine abuse, denies tylenol abuse -Stopped tylenol here -Per poison control, recommending N-acetylcysteine starting today. Their furniture polisher to review case and let us know recommendations- spoke with Lavon at [facility] at 12:15 -Discussed case with GI (Dr. Ellis). F/u CT abd/pelvis. After results back, to call [facility] and discuss with retail custodial associate. Nausea likely 2/2 to acute hepatitis -C/w treatment above -CLD -zofran, phenergan [place]-colored vomitus, r/o GI bleed -INR high, H/H stable -PPI BID, CT abd/pelvis -Monitoring closely Hypoglycemia, acute and likely 2/2 to nausea -Zofran, phenergan -D5WNSS at 125 cc/hr, check FS regularly Polysubstance illicit drug use -Amphetamines, cocaine -Monitor for s/s of withdrawl, currently none CPK Elevated cannot r/o 2/2 to spasming, cannot r/o seizure, drug use -3500--> 4800 today -Cr wnl -C/w IVFs Hypokalemia, acute -S/p supplementation -F/u repeat labs GI px -IV PPI BID DVT prophylaxis: -SCDs, teds. Stopped heparin Resolved issues: CARMEN Altered mental status poss 2/2 to seizure vs. drug/toxic encephalopathy Tachycardia likely 2/2 to intoxication to above, dehydration, agitation (possibly some kind of withdrawl?), UTI DISPOSITION: To discuss with [facility] hepatology, awaiting call from center toxicology to give recommendations. VS, I&O, 24H, Fishbone Vital Signs/I&O Vital Signs Date Time Temp Pulse Resp B/P (MAP) Pulse Ox O2 Delivery O2 Flow Rate FiO2 06/15/20 06:00 98.5 64 18 115/74 (88) 99 Room Air I&O- Last 24 Hours up to 6 AM 06/15/20 06:00 Intake Total 1650 ml Output Total 1200 ml Balance 450 ml Laboratory Data 24H LABS Laboratory Tests 2 06/14/20 17:24: Urine Random Creatinine 36.3, Urine Random Sodium 122 06/15/20 06:11: Nucleated Red Blood Cells % (auto) 0.0, Anion Gap 6L, Glomerular Filtration Rate > 60.0, Calcium Level 7.3L, Total Bilirubin 0.9, Aspartate Amino Transf (AST/SGOT) 2762H, Alanine Aminotransferase (ALT/SGPT) 1753H, Alkaline Phosphatase 88, Total Creatine Kinase 4805H, Total Protein 5.0L, Albumin 2.8L, Albumin/Globulin Ratio 1.3 06/15/20 09:16: Prothrombin Time 25.7H, Prothromb Time International Ratio 2.29, Activated Partial Thromboplast Time 34.3, Lactate Dehydrogenase 2881H 06/15/20 11:01: Bedside Glucose (Misc Panel) 68L CBC/BMP Laboratory Tests 06/15/20 06:11 Microbiology Microbiology 06/13/20 Urine Culture - Final, Complete Current Medications Current Medications Medications (Trade) Dose Ordered Sig/Fara Route PRN Reason Start Time Stop Time Status Last Admin Dose Admin Acetaminophen (Tylenol Tab) 650 mg Q4H PRN PO PAIN OR FEVER 06/14/20 00:00 06/15/20 08:52 DC 06/14/20 20:18 Calcium Carbonate (Tums) 500 mg Q6HP PRN PO INDIGESTION 06/14/20 17:35 06/15/20 09:13 Dextrose/Sodium Chloride 1,000 ml @ 125 mls/hr Q8H IV 06/15/20 11:15 06/15/20 11:46 Heparin Sodium (Porcine) (Heparin) 5,000 units Q12H SC 06/14/20 09:00 06/15/20 08:59 DC Home Med (Med Rec Complete!) ASDIRECTED XX 06/14/20 01:00 06/14/20 00:59 DC Levofloxacin (Levaquin) 500 mg DAILY@06 PO 06/14/20 06:00 06/15/20 09:16 DC 06/15/20 06:19 Levofloxacin 500 mg/IV Miscellaneous Supplies 100 ml @ 100 mls/hr Q24H IV 06/16/20 06:00 Lorazepam (Ativan) 2 mg STAT STAT IV 06/13/20 20:41 06/13/20 20:42 DC 06/13/20 21:28 Ondansetron HCl (ZOFRAN INJection) 4 mg Q6H IV 06/15/20 10:00 06/15/20 09:33 Pantoprazole Sodium (Protonix) 40 mg Q24H IV 06/15/20 09:00 06/15/20 09:40 Potassium Chloride 10 meq/ IV Miscellaneous Supplies 100 ml @ 100 mls/hr Q1H IV 06/15/20 10:00 06/15/20 12:59 06/15/20 11:11 Promethazine HCl (PHENERGAN INJection) 25 mg Q6HP PRN IV NAUSEA 06/15/20 10:20 Sodium Chloride 1,000 ml @ 150 mls/hr Q6H40M IV 06/14/20 00:00 06/15/20 11:03 DC 06/15/20 06:19 Allergies Coded Allergies: Penicillins (Verified Allergy, Intermediate, HIVES, 05/27/20) latex (Verified Allergy, Intermediate, HIVES, 05/27/20) Marleny Swartz MD Jun 15, 2020 12:37
[2020-06-15 14:00] VITALS: BP 141/78
[2020-06-15] MEDS ORDERED: ACETYLCYSTEINE IV ONE ×3 (14:00→19:30)
[2020-06-15] MEDS ORDERED: D5W IV ONE ×3 (14:00→19:30)
[2020-06-15 14:28] LABS: ABG BASE EXCESS -3.9 (-2.0-2.0); ABG HCO3 19.3 MEQ/L (22.0-26.0); ABG STANDARD HCO3 21.3 MEQ/L (22.0-26.0); ABG TOTAL CO2 20.3 MEQ/L (22.0-29.0); ABG pH (ARTERIAL) 7.427 UNITS (7.350-7.450)
[2020-06-15 18:52] LABS: INR 2.13; PROTHROMBIN TIME 24.3 SECONDS (12.5-14.3)
[2020-06-15 18:53] LABS: PARTIAL THROMBOPLASTIN TIME 31.5 SECONDS (24.2-38.5)
[2020-06-15] MEDS: PANTOPRAZOLE 40MG VIAL (C9113 PER 1) IV SCH (21:16)
[2020-06-15 22:00] VITALS: BP 136/91
[2020-06-16] MEDS: ONDANSETRON 4MG/2ML VIAL IV SCH ×4 (04:05→21:34)
[2020-06-16] MEDS: D5W/0.9% SODIUM CHLORIDE 1,000 ML IV SCH (04:06)
[2020-06-16 06:00] VITALS: BP 107/63
[2020-06-16] MEDS ORDERED: LevoFLOXacin IV 500 MG in IV 1 EA IV SCH (06:00)
[2020-06-16 06:44] LABS: HEMATOCRIT 36.8 % (36.0-47.0); HEMOGLOBIN 12.6 g/dl (12.0-15.5); MEAN CORPUSCULAR HEMOGLOBIN 29.6 pg (27.0-33.0); MEAN CORPUSCULAR HGB CONC 34.2 g/dl (32.0-36.5); MEAN CORPUSCULAR VOLUME 86.4 fl (80.0-96.0); PLATELET COUNT, AUTOMATED 152 10^3/uL (150-450); RED BLOOD COUNT 4.26 10^6/uL (4.00-5.40); WHITE BLOOD COUNT 5.9 10^3/uL (4.0-10.0)
[2020-06-16 06:51] LABS: INR 1.61; PROTHROMBIN TIME 19.5 SECONDS (12.5-14.3)
[2020-06-16 06:52] LABS: PARTIAL THROMBOPLASTIN TIME 30.1 SECONDS (24.2-38.5)
[2020-06-16 07:31] LABS: ALBUMIN 2.9 GM/DL (3.2-5.2); ALT/SGPT 2271 U/L (12-78); BILIRUBIN,TOTAL 1.2 MG/DL (0.2-1.0); BLOOD UREA NITROGEN 3 MG/DL (7-18); CALCIUM LEVEL 7.5 MG/DL (8.5-10.1); CARBON DIOXIDE LEVEL 27 MEQ/L (21-32); CHLORIDE LEVEL 107 MEQ/L (98-107); GLOMERULAR FILTRATION RATE > 60.0 (>60); GLUCOSE, FASTING 151 MG/DL (70-100); POTASSIUM SERUM 3.1 MEQ/L (3.5-5.1); SODIUM LEVEL 141 MEQ/L (136-145); TOTAL PROTEIN 5.3 GM/DL (6.4-8.2)
[2020-06-16 08:54] LABS: CPK CREATINE PHOSPHOKINASE 2724 U/L (26-192)
[2020-06-16] MEDS: POTASSIUM CHLORIDE 10 MEQ SR TABLET PO SCH ×2 (09:53→21:34)
[2020-06-16] MEDS: PANTOPRAZOLE 40MG VIAL (C9113 PER 1) IV SCH (09:53)
[2020-06-16] MEDS: NS 1,000 ML IV SCH ×3 (09:56→19:28)
[2020-06-16 14:00] VITALS: BP 107/65
--- NOTE | 2020-06-16 14:37 | IPNPDOC ---
Date Seen The patient was seen on 06/16/20. Progress Note SUBJECTIVE: Appears more comfortable in bed today, denies n/v. ALT worsened but INR and AST improving. Continues to receive N-acetylcysteine. Poison control updated by nurs ing today. Advanced diet, changed to NSS. No s/s of bleeding. AAOx3, denies abdominal pain. OBJECTIVE: PHYSICAL EXAMINATION: VS: Please see below Constitutional: NAD, resting in bed. AAOX3 ENT: Sclera are clear. Respiratory: Lungs CTA bilaterally. No respiratory distress. No use of accessory muscles. Cardiovascular: NSR, S1 and S2 are normal, no murmur Gastrointestinal: Abdomen is soft, non distended, non tender, BS present. Musculoskeletal: No lower extremity edema. RUE 5/5, LUE 5/5, BLE 5/5 Neurologic: No focal neurological deficit. CN2-12 intact. no sensory or motor impairment Skin: Warm, dry Psych: mood and affect appropriate LABORATORY DATA: See below. MICROBIOLOGY: UCx: contaminated IMAGING: Ct abd/pelvis: No acute abdominopelvic pathology appreciated. Lung bases demonstrate very small pleural effusions and minimal dependent atelectasis. MICROBIOLOGY: Please see below. ASSESSMENT: 34-year-old female admitted for observation due to altered mental status thought to be possibly secondary to drug intoxication versus seizure, hepatitis r/o etiology. PLAN: Acute hepatitis, r/o ischemic vs. hepatic injury 2/2 to drug use (? tylenol) -INR 2.29--> 1.6, AST 2762--> 2407, ALT 1753--> 2271. Bili slightly increased -Tylenol level, salicylate level on admission low/neg -Hx of cocaine/ amphetamine abuse -CT abd/pelvis above -Poison control involved with their appliance repairer. C/w N-acetylcysteine protocol. -GI here recommended touching base with liver transplant team in event her case worsened on 06/15/20. -Discussed case with several people from Poison Control and [place] liver transplant team, Dr. Brayan Carlos. Agrees with N-AC, close monitoring of blood sugar, administration of Vitamin K 10 mg IV if INR rises. C/w aggressive fluid hydration. He anticipates bili will rise in next several days but this eventually will peak and then fall. If there are any further questions, please call [facility] transplant team at [phone] to get in contact with on-call box wirer. -Repeat CMP at 16:00 Nausea likely 2/2 to acute hepatitis- resolved -C/w treatment above -Advanced diet -zofran, phenergan Hypoglycemia, acute and likely 2/2 to nausea- resolved -Zofran, phenergan -Stopped D5 fluids, advanced diet Polysubstance drug abuse -Amphetamines, cocaine -Monitor for s/s of withdrawl, currently none CPK Elevated cannot r/o 2/2 to spasming, cannot r/o seizure, drug use -3500--> 4800 (peaked)--> 2721 -Cr wnl -C/w IVFs Hypokalemia, acute -K 3.1 -Started on Kcl 30 mEq BID -F/u repeat labs GI px -PPI DVT prophylaxis: -SCDs, teds. Holding off on AC until INR remains consistently low Resolved issues: CARMEN Altered mental status poss 2/2 to seizure vs. drug/toxic encephalopathy Tachycardia likely 2/2 to intoxication to above, dehydration, agitation (possibly some kind of withdrawl?), UTI DISPOSITION: Plan is once medically improved then will d/c home. VS, I&O, 24H, Fishbone Vital Signs/I&O Vital Signs Date Time Temp Pulse Resp B/P (MAP) Pulse Ox O2 Delivery O2 Flow Rate FiO2 06/16/20 06:00 98.4 65 18 107/63 (78) 99 Room Air I&O- Last 24 Hours up to 6 AM 06/16/20 06:00 Intake Total 2641.65 ml Output Total 3000 ml Balance -358.35 ml Laboratory Data 24H LABS Laboratory Tests 2 06/15/20 14:01: Blood Gas Bicarbonate Standard 21.3L, Arterial Blood pH 7.427, Arterial Blood Partial Pressure CO2 30.0L, Arterial Blood Partial Pressure O2 104.0H, Arterial Blood Total CO2 20.3L, Arterial Blood HCO3 19.3L, Arterial Blood Base Excess - 3.9L, Arterial Blood Oxygen Saturation 98.0 06/15/20 16:27: Bedside Glucose (Misc Panel) 144H 06/15/20 18:02: Prothrombin Time 24.3H, Prothromb Time International Ratio 2.13, Activated Partial Thromboplast Time 31.5, Lactic Acid Level 2.0 06/15/20 20:10: Bedside Glucose (Misc Panel) 138H 06/16/20 06:08: Nucleated Red Blood Cells % (auto) 0.0, Prothrombin Time 19.5H, Prothromb Time International Ratio 1.61, Activated Partial Thromboplast Time 30.1, Anion Gap 7L, Glomerular Filtration Rate > 60.0, Calcium Level 7.5L, Total Bilirubin 1.2H, Aspartate Amino Transf (AST/SGOT) 2407H, Alanine Aminotransferase (ALT/SGPT) 2271H, Alkaline Phosphatase 70, Total Creatine Kinase 2724H, Total Protein 5.3L, Albumin 2.9L, Albumin/Globulin Ratio 1.2 06/16/20 11:42: Bedside Glucose (Misc Panel) 117H CBC/BMP Laboratory Tests 06/16/20 06:08 Microbiology Microbiology 06/13/20 Urine Culture - Final, Complete Current Medications Current Medications Medications (Trade) Dose Ordered Sig/Fara Route PRN Reason Start Time Stop Time Status Last Admin Dose Admin Acetaminophen (Tylenol Tab) 650 mg Q4H PRN PO PAIN OR FEVER 06/14/20 00:00 06/15/20 08:52 DC 06/14/20 20:18 Calcium Carbonate (Tums) 500 mg Q6HP PRN PO INDIGESTION 06/14/20 17:35 06/15/20 09:13 Dextrose (Dextrose 50%) 25 ml ASDIRECTED PRN IV SEE LABEL COMMENTS 06/15/20 12:30 Dextrose/Sodium Chloride 1,000 ml @ 100 mls/hr Q10H IV 06/15/20 11:15 06/16/20 09:39 DC 06/16/20 04:06 Glucagon (Glucagon) 1 mg ASDIRECTED PRN SC SEE LABEL COMMENTS 06/15/20 12:30 Glucose (Glucose) 16 GM ASDIRECTED PRN PO SEE LABEL COMMENTS 06/15/20 12:30 Heparin Sodium (Porcine) (Heparin) 5,000 units Q12H SC 06/14/20 09:00 06/15/20 08:59 DC Home Med (Med Rec Complete!) ASDIRECTED XX 06/14/20 01:00 06/14/20 00:59 DC Levofloxacin (Levaquin) 500 mg DAILY@06 PO 06/14/20 06:00 06/15/20 09:16 DC 06/15/20 06:19 Levofloxacin 500 mg/IV Miscellaneous Supplies 100 ml @ 100 mls/hr Q24H IV 06/16/20 06:00 06/15/20 12:33 DC Lorazepam (Ativan) 2 mg STAT STAT IV 06/13/20 20:41 06/13/20 20:42 DC 06/13/20 21:28 Ondansetron HCl (ZOFRAN INJection) 4 mg Q6H IV 06/15/20 10:00 06/16/20 09:53 Pantoprazole Sodium (Protonix) 40 mg BID IV 06/15/20 21:00 06/16/20 09:53 Pantoprazole Sodium (Protonix) 40 mg Q24H IV 06/15/20 09:00 06/15/20 12:37 DC 06/15/20 09:40 Potassium Chloride 10 meq/ IV Miscellaneous Supplies 100 ml @ 100 mls/hr Q1H IV 06/15/20 10:00 06/15/20 12:59 DC 06/15/20 12:22 Potassium Chloride (Micro-K Extencaps) 30 meq BID PO 06/16/20 09:00 06/16/20 09:53 Promethazine HCl (PHENERGAN INJection) 25 mg Q6HP PRN IV NAUSEA 06/15/20 10:20 06/15/20 18:05 Sodium Chloride 1,000 ml @ 125 mls/hr Q8H IV 06/16/20 10:00 06/16/20 09:56 Sodium Chloride 1,000 ml @ 150 mls/hr Q6H40M IV 06/14/20 00:00 06/15/20 11:03 DC 06/15/20 06:19 Allergies Coded Allergies: Penicillins (Verified Allergy, Intermediate, HIVES, 05/27/20) latex (Verified Allergy, Intermediate, HIVES, 05/27/20) Marleny Swartz MD Jun 16, 2020 14:37
[2020-06-16 16:07] LABS: ALBUMIN 2.9 GM/DL (3.2-5.2); ALT/SGPT 1858 U/L (12-78); BILIRUBIN,TOTAL 1.1 MG/DL (0.2-1.0); BLOOD UREA NITROGEN 3 MG/DL (7-18); CALCIUM LEVEL 7.3 MG/DL (8.5-10.1); CARBON DIOXIDE LEVEL 29 MEQ/L (21-32); CHLORIDE LEVEL 110 MEQ/L (98-107); CREATININE FOR GFR 0.61 MG/DL (0.55-1.30); GLOMERULAR FILTRATION RATE > 60.0 (>60); GLUCOSE, FASTING 90 MG/DL (70-100); POTASSIUM SERUM 3.5 MEQ/L (3.5-5.1); SODIUM LEVEL 143 MEQ/L (136-145); TOTAL PROTEIN 5.4 GM/DL (6.4-8.2)
[2020-06-16 18:34] LABS: INR 1.28; PARTIAL THROMBOPLASTIN TIME 29.6 SECONDS (24.2-38.5); PROTHROMBIN TIME 16.3 SECONDS (12.5-14.3)
[2020-06-16] MEDS ORDERED: ACETYLCYSTEINE IV ONE (19:00)
[2020-06-16] MEDS ORDERED: D5W IV ONE (19:00)
[2020-06-16 22:00] VITALS: BP 107/68
[2020-06-17] MEDS: ONDANSETRON 4MG/2ML VIAL IV SCH ×4 (04:31→21:00)
[2020-06-17] MEDS: NS 1,000 ML IV SCH ×2 (04:34→17:39)
[2020-06-17 06:00] VITALS: BP 104/67
[2020-06-17 06:28] LABS: HEMATOCRIT 35.3 % (36.0-47.0); HEMOGLOBIN 11.9 g/dl (12.0-15.5); MEAN CORPUSCULAR HEMOGLOBIN 29.9 pg (27.0-33.0); MEAN CORPUSCULAR HGB CONC 33.7 g/dl (32.0-36.5); MEAN CORPUSCULAR VOLUME 88.7 fl (80.0-96.0); PLATELET COUNT, AUTOMATED 140 10^3/uL (150-450); RED BLOOD COUNT 3.98 10^6/uL (4.00-5.40); WHITE BLOOD COUNT 4.4 10^3/uL (4.0-10.0)
[2020-06-17 06:34] LABS: INR 1.12; PROTHROMBIN TIME 14.6 SECONDS (12.5-14.3)
[2020-06-17 06:35] LABS: PARTIAL THROMBOPLASTIN TIME 28.2 SECONDS (24.2-38.5)
[2020-06-17 07:09] LABS: ALBUMIN 2.6 GM/DL (3.2-5.2); ALT/SGPT 1401 U/L (12-78); BILIRUBIN,TOTAL 0.9 MG/DL (0.2-1.0); BLOOD UREA NITROGEN 3 MG/DL (7-18); CALCIUM LEVEL 7.6 MG/DL (8.5-10.1); CARBON DIOXIDE LEVEL 26 MEQ/L (21-32); CHLORIDE LEVEL 110 MEQ/L (98-107); CPK CREATINE PHOSPHOKINASE 1692 U/L (26-192); CREATININE FOR GFR 0.53 MG/DL (0.55-1.30); GLOMERULAR FILTRATION RATE > 60.0 (>60); GLUCOSE, FASTING 97 MG/DL (70-100); POTASSIUM SERUM 3.6 MEQ/L (3.5-5.1); SODIUM LEVEL 144 MEQ/L (136-145); TOTAL PROTEIN 5.2 GM/DL (6.4-8.2)
[2020-06-17 07:45] VITALS: BP 119/83
[2020-06-17] MEDS: PANTOPRAZOLE 40MG VIAL (C9113 PER 1) IV SCH (08:57)
[2020-06-17] MEDS: POTASSIUM CHLORIDE 10 MEQ SR TABLET PO SCH ×2 (08:57→20:52)
[2020-06-17 10:11] LABS: ALBUMIN 2.7 GM/DL (3.2-5.2); ALT/SGPT 1374 U/L (12-78); BILIRUBIN,TOTAL 0.9 MG/DL (0.2-1.0); BLOOD UREA NITROGEN 3 MG/DL (7-18); CALCIUM LEVEL 7.9 MG/DL (8.5-10.1); CARBON DIOXIDE LEVEL 27 MEQ/L (21-32); CHLORIDE LEVEL 111 MEQ/L (98-107); CREATININE FOR GFR 0.64 MG/DL (0.55-1.30); GLOMERULAR FILTRATION RATE > 60.0 (>60); GLUCOSE, FASTING 140 MG/DL (70-100); POTASSIUM SERUM 3.3 MEQ/L (3.5-5.1); SODIUM LEVEL 143 MEQ/L (136-145); TOTAL PROTEIN 5.3 GM/DL (6.4-8.2)
[2020-06-17 10:13] LABS: INR 1.12; PROTHROMBIN TIME 14.6 SECONDS (12.5-14.3)
[2020-06-17] MEDS ORDERED: ACETYLCYSTEINE IV ONE (11:00)
[2020-06-17] MEDS ORDERED: D5W IV ONE (11:00)
[2020-06-17 11:11] LABS: HEPATITIS A ANTIBODY IGM NEGATIVE (NEGATIVE); HEPATITIS B CORE ANTIBODY IGM NEGATIVE (NEGATIVE); HEPATITIS B SURFACE ANTIGEN NEGATIVE (NEGATIVE); HEPATITIS C VIRUS ABY INDEX < 0.0 INDEX (<0.8)
[2020-06-17 14:00] VITALS: BP 120/82
--- NOTE | 2020-06-17 14:27 | IPNPDOC ---
Date Seen The patient was seen on 06/17/20. Progress Note SUBJECTIVE: Resolved nausea but still has decreased appetite. Per poison control, starting another bag of N-AC (started at 11 AM, to run until 3 AM 06/18/20) until ALT half of its peak (1135). F/u CMP after N-AC is done running to see if need to continue. CK decreasing. INR 1.12. AAOx3, denies abdominal pain. OBJECTIVE: PHYSICAL EXAMINATION: VS: Please see below Constitutional: NAD, resting in bed. AAOX3 ENT: Sclera are clear. Respiratory: Lungs CTA bilaterally. No respiratory distress. No use of accessory muscles. Cardiovascular: NSR, S1 and S2 are normal, no murmur Gastrointestinal: Abdomen is soft, non distended, non tender, BS present. Musculoskeletal: No lower extremity edema. RUE 5/5, LUE 5/5, BLE 5/5 Neurologic: No focal neurological deficit. CN2-12 intact. no sensory or motor impairment Skin: Warm, dry Psych: mood and affect appropriate LABORATORY DATA: See below. MICROBIOLOGY: UCx: contaminated IMAGING: Ct abd/pelvis: No acute abdominopelvic pathology appreciated. Lung bases demonstrate very small pleural effusions and minimal dependent atelectasis. MICROBIOLOGY: Please see below. ASSESSMENT: 34-year-old female admitted for observation due to altered mental status thought to be possibly secondary to drug intoxication versus seizure, hepatitis r/o etiology. PLAN: Acute hepatitis, r/o ischemic vs. hepatic injury 2/2 to drug use (? tylenol) -INR 1.12, AST 1294--> 556, ALT 1401--> 1374. Bili wnl -Tylenol level, salicylate level on admission low/neg -Hx of cocaine/ amphetamine abuse -CT abd/pelvis above -Poison control involved with their manager functional, still suspicions for tylenol overdose suspected. C/w N-acetylcysteine protocol. -Discussed case with several people from Poison Control and [place] liver transplant team, Dr. Brayan Carlos early in admission -Received four doses of N-AC thus far, aggressive IVF hydration. -Will check CMP at 3 AM to see if another bag of N-AC needs to be hung. Per poison control, continue with med until ALT half of peak (peaked at 2271). Polysubstance drug abuse -Amphetamines, cocaine -Drug cessation counselling provided -Monitor for s/s of withdrawl, currently none CPK Elevated cannot r/o 2/2 to spasming vs. drugs, also cannot r/o seizure -4800 (peaked)--> 1692 today -Cr wnl -C/w IVFs Hypokalemia, acute -K 3.3 -C/w Kcl 30 mEq BID -F/u repeat labs GI px -PPI DVT prophylaxis: -SCDs, teds. Resolved issues: CARMEN Altered mental status poss 2/2 to seizure vs. drug/toxic encephalopathy Tachycardia likely 2/2 to intoxication to above, dehydration, agitation (possibly some kind of withdrawl?) Nausea likely 2/2 to acute hepatitis Hypoglycemia, acute and likely 2/2 to nausea DISPOSITION: Patient has no PCP and will need appointment at discharge. Plan is once medically improved then will d/c home. VS, I&O, 24H, Fishbone Vital Signs/I&O Vital Signs Date Time Temp Pulse Resp B/P (MAP) Pulse Ox O2 Delivery O2 Flow Rate FiO2 06/17/20 14:00 98.3 62 16 120/82 (95) 100 Room Air I&O- Last 24 Hours up to 6 AM 06/17/20 05:59 Intake Total 2556 ml Output Total 500 ml Balance 2056 ml Laboratory Data 24H LABS Laboratory Tests 2 06/16/20 15:12: Anion Gap 4L, Glomerular Filtration Rate > 60.0, Calcium Level 7.3L, Total Bilirubin 1.1H, Aspartate Amino Transf (AST/SGOT) 1294H, Alanine Aminotransferase (ALT/SGPT) 1858H, Alkaline Phosphatase 69, Total Protein 5.4L, Albumin 2.9L, Albumin/Globulin Ratio 1.2 06/16/20 16:24: Bedside Glucose (Misc Panel) 96 06/16/20 18:07: Prothrombin Time 16.3H, Prothromb Time International Ratio 1.28, Activated Partial Thromboplast Time 29.6 06/16/20 20:40: Bedside Glucose (Misc Panel) 136H 06/17/20 05:45: Nucleated Red Blood Cells % (auto) 0.0, Prothrombin Time 14.6H, Prothromb Time International Ratio 1.12, Activated Partial Thromboplast Time 28.2, Anion Gap 8, Glomerular Filtration Rate > 60.0, Calcium Level 7.6L, Total Bilirubin 0.9, Aspartate Amino Transf (AST/SGOT) 556H, Alanine Aminotransferase (ALT/SGPT) 1401H, Alkaline Phosphatase 81, Total Creatine Kinase 1692H, Total Protein 5.2L, Albumin 2.6L, Albumin/Globulin Ratio 1.0L 06/17/20 09:14: Prothrombin Time 14.6H, Prothromb Time International Ratio 1.12, Anion Gap 5L, Glomerular Filtration Rate > 60.0, Calcium Level 7.9L, Total Bilirubin 0.9, Aspartate Amino Transf (AST/SGOT) 483H, Alanine Aminotransferase (ALT/SGPT) 1374H, Alkaline Phosphatase 78, Total Protein 5.3L, Albumin 2.7L, Albumin/Globulin Ratio 1.0L 06/17/20 12:19: Bedside Glucose (Misc Panel) 148H CBC/BMP Laboratory Tests 06/16/20 15:12 06/17/20 05:45 06/17/20 09:14 Microbiology Microbiology 06/13/20 Urine Culture - Final, Complete Current Medications Current Medications Medications (Trade) Dose Ordered Sig/Fara Route PRN Reason Start Time Stop Time Status Last Admin Dose Admin Acetaminophen (Tylenol Tab) 650 mg Q4H PRN PO PAIN OR FEVER 06/14/20 00:00 06/15/20 08:52 DC 06/14/20 20:18 Calcium Carbonate (Tums) 500 mg Q6HP PRN PO INDIGESTION 06/14/20 17:35 06/15/20 09:13 Dextrose (Dextrose 50%) 25 ml ASDIRECTED PRN IV SEE LABEL COMMENTS 06/15/20 12:30 Dextrose/Sodium Chloride 1,000 ml @ 100 mls/hr Q10H IV 06/15/20 11:15 06/16/20 09:39 DC 06/16/20 04:06 Glucagon (Glucagon) 1 mg ASDIRECTED PRN SC SEE LABEL COMMENTS 06/15/20 12:30 Glucose (Glucose) 16 GM ASDIRECTED PRN PO SEE LABEL COMMENTS 06/15/20 12:30 Heparin Sodium (Porcine) (Heparin) 5,000 units Q12H SC 06/14/20 09:00 06/15/20 08:59 DC Home Med (Med Rec Complete!) ASDIRECTED XX 06/14/20 01:00 06/14/20 00:59 DC Levofloxacin (Levaquin) 500 mg DAILY@06 PO 06/14/20 06:00 06/15/20 09:16 DC 06/15/20 06:19 Levofloxacin 500 mg/IV Miscellaneous Supplies 100 ml @ 100 mls/hr Q24H IV 06/16/20 06:00 06/15/20 12:33 DC Lorazepam (Ativan) 2 mg STAT STAT IV 06/13/20 20:41 06/13/20 20:42 DC 06/13/20 21:28 Ondansetron HCl (ZOFRAN INJection) 4 mg Q6H IV 06/15/20 10:00 06/17/20 04:31 Pantoprazole Sodium (Protonix) 40 mg BID IV 06/15/20 21:00 06/16/20 14:38 DC 06/16/20 09:53 Pantoprazole Sodium (Protonix) 40 mg DAILY IV 06/17/20 09:00 06/17/20 08:57 Pantoprazole Sodium (Protonix) 40 mg Q24H IV 06/15/20 09:00 06/15/20 12:37 DC 06/15/20 09:40 Potassium Chloride 10 meq/ IV Miscellaneous Supplies 100 ml @ 100 mls/hr Q1H IV 06/15/20 10:00 06/15/20 12:59 DC 06/15/20 12:22 Potassium Chloride (Micro-K Extencaps) 30 meq BID PO 06/16/20 09:00 06/17/20 08:57 Promethazine HCl (PHENERGAN INJection) 25 mg Q6HP PRN IV NAUSEA 06/15/20 10:20 06/15/20 18:05 Sodium Chloride 1,000 ml @ 125 mls/hr Q8H IV 06/16/20 10:00 06/17/20 04:34 Sodium Chloride 1,000 ml @ 150 mls/hr Q6H40M IV 06/14/20 00:00 06/15/20 11:03 DC 06/15/20 06:19 Allergies Coded Allergies: Penicillins (Verified Allergy, Intermediate, HIVES, 05/27/20) latex (Verified Allergy, Intermediate, HIVES, 05/27/20) Marleny Swartz MD Jun 17, 2020 14:27
[2020-06-17 22:00] VITALS: BP 125/82
[2020-06-18] MEDS: NS 1,000 ML IV SCH ×2 (00:38→10:35)
[2020-06-18 02:31] LABS: HEMATOCRIT 35.1 % (36.0-47.0); HEMOGLOBIN 11.8 g/dl (12.0-15.5); MEAN CORPUSCULAR HEMOGLOBIN 29.9 pg (27.0-33.0); MEAN CORPUSCULAR HGB CONC 33.6 g/dl (32.0-36.5); MEAN CORPUSCULAR VOLUME 88.9 fl (80.0-96.0); PLATELET COUNT, AUTOMATED 142 10^3/uL (150-450); RED BLOOD COUNT 3.95 10^6/uL (4.00-5.40)
[2020-06-18 02:41] LABS: INR 1.01; PROTHROMBIN TIME 13.5 SECONDS (12.5-14.3)
[2020-06-18 03:11] LABS: ALBUMIN 2.9 GM/DL (3.2-5.2); ALT/SGPT 1093 U/L (12-78); BILIRUBIN,TOTAL 0.4 MG/DL (0.2-1.0); BLOOD UREA NITROGEN 4 MG/DL (7-18); CALCIUM LEVEL 7.6 MG/DL (8.5-10.1); CARBON DIOXIDE LEVEL 26 MEQ/L (21-32); CHLORIDE LEVEL 109 MEQ/L (98-107); CPK CREATINE PHOSPHOKINASE 1307 U/L (26-192); CREATININE FOR GFR 0.65 MG/DL (0.55-1.30); GLOMERULAR FILTRATION RATE > 60.0 (>60); GLUCOSE, FASTING 101 MG/DL (70-100); POTASSIUM SERUM 3.9 MEQ/L (3.5-5.1); SODIUM LEVEL 143 MEQ/L (136-145); TOTAL PROTEIN 5.6 GM/DL (6.4-8.2)
[2020-06-18] MEDS: ONDANSETRON 4MG/2ML VIAL IV SCH ×2 (03:40→10:00)
[2020-06-18 06:00] VITALS: BP 100/64
[2020-06-18] MEDS: POTASSIUM CHLORIDE 10 MEQ SR TABLET PO SCH (08:30)
[2020-06-18] MEDS: PANTOPRAZOLE 40MG VIAL (C9113 PER 1) IV SCH (08:30)
--- NOTE | 2020-06-18 11:24 | DS.PDOC ---
Discharge Summary General Date of Admission Jun 15, 2020 at 19:19 Date of Discharge 06/18/2020 Attending Physician: IVAN MCCOY MD Discharge Summary PROCEDURES PERFORMED DURING STAY: None ADMITTING DIAGNOSES: Drug induced encephalopathy DISCHARGE DIAGNOSES: Drug induced encephalopathy Polysubstance use disorder Acute liver injury 2/2 illicit drug use COMPLICATIONS/CHIEF COMPLAINT: Altered Mental Status. HISTORY OF PRESENT ILLNESS: 34-year-old W who presented to the hospital because of altered mentation. EMS was called by her children because patient was acting strange at home. Initially she was very confused when she came to the hospital but over the ensuing hours while in the emergency department she improved and was able to answer questions. She reported that she was having an argument involving her kids and ex- at home. EMS was told there was questionable white substance that was found at home. Patient reported memory loss and did not remember the events that led to her coming to the hospital. HOSPITAL COURSE: IN the ED she was normotensive but tachycardic and had a low grade temp with reported of prior fever noted by EMS. On further questioning, she reported use of cocaine a few times in last few days prior to presentation week as well as possible Adderall. She denied any chest pain or shortness of breath denies abdominal discomfort or pain denies nausea or vomiting admits to mild headache. Workup was notable for cocaine and amphetamine positivity on tox screen and acute transaminitis on lab evaluation. She was admitted to medicine for acute encephalopathy and liver injury and started on NAC with consultation with poison control. She also had an CARMEN and rhabdo that were noted and she had aggressive fluid resuscitation. The transaminitis, CARMEN and rhabdo all improved with NAC and fluids and her mentation also returned to baseline. On discussion about her drug use being the precipitant of all the above events, she acknowledged that her drug use and alcohol consumption are detrimental to her health and plans to quit illicit drug use and alcohol consumption right away. I offered her information on outpatient substance use clinic and services and she declined stating that she has enough support with her family and knows that she has to stop now and expects that she will be successful at quitting. We are setting up a PCP to follow up resolution of transaminitis and cessation of alcohol and drug use. DISCHARGE MEDICATIONS: Please see below. ALLERGIES: Please see below. PHYSICAL EXAMINATION ON DISCHARGE: VITAL SIGNS: Please see below. VS: Please see below Constitutional: NAD, resting in bed. AAOX3 ENT: Sclera are clear. Respiratory: Lungs CTA bilaterally. No respiratory distress. No use of accessory muscles. Cardiovascular: NSR, S1 and S2 are normal, no murmur Gastrointestinal: Abdomen is soft, non distended, non tender, BS present. Musculoskeletal: No lower extremity edema. RUE 5/5, LUE 5/5, BLE 5/5 Neurologic: No focal neurological deficit. CN2-12 intact. no sensory or motor impairment Skin: Warm, dry Psych: mood and affect appropriate LABORATORY DATA: Please see below. IMAGING: Ct abd/pelvis: No acute abdominopelvic pathology appreciated. Lung bases demonstrate very small pleural effusions and minimal dependent atelectasis. PROGNOSIS: Good, with abstinence of alcohol and illicit drugs ACTIVITY: As tolerated DIET: regular DISCHARGE PLAN: Home with PCP follow up. DISPOSITION: Home DISCHARGE INSTRUCTIONS: Home with PCP follow up. ITEMS TO FOLLOWUP ON ON OUTPATIENT: Resolution of drug induced liver injury polysubstance use abstinence DISCHARGE CONDITION: Stable TIME SPENT ON DISCHARGE: 46 minutes. Vital Signs/I&Os Vital Signs Date Time Temp Pulse Resp B/P (MAP) Pulse Ox O2 Delivery O2 Flow Rate FiO2 06/18/20 06:00 97.7 65 16 100/64 (76) 98 Room Air I&O- Last 24 Hours up to 6 AM 06/18/20 06:00 Intake Total 4710.282 ml Output Total 400 ml Balance 4310.282 ml Laboratory Data Labs 24H Laboratory Tests 2 06/17/20 12:19: Bedside Glucose (Misc Panel) 148H 06/17/20 16:46: Bedside Glucose (Misc Panel) 125H 06/17/20 20:13: Bedside Glucose (Misc Panel) 102 06/18/20 02:21: Nucleated Red Blood Cells % (auto) 0.0, Prothrombin Time 13.5, Prothromb Time International Ratio 1.01, Activated Partial Thromboplast Time 28.0, Anion Gap 8, Glomerular Filtration Rate > 60.0, Calcium Level 7.6L, Total Bilirubin 0.4#, Aspartate Amino Transf (AST/SGOT) 255H, Alanine Aminotransferase (ALT/SGPT) 1093H, Alkaline Phosphatase 92, Total Creatine Kinase 1307H, Total Protein 5.6L, Albumin 2.9L, Albumin/Globulin Ratio 1.1L CBC/BMP Laboratory Tests 06/18/20 02:21 FSBS Laboratory Tests Test 06/17/20 12:19 06/17/20 16:46 06/17/20 20:13 Range/Units Bedside Glucose (Misc Panel) 148 125 102 70-105 MG/DL Microbiology Microbiology 06/13/20 Urine Culture - Final, Complete Discharge Medications No Active Prescriptions or Reported Meds Allergies Coded Allergies: Penicillins (Verified Allergy, Intermediate, HIVES, 05/27/20) latex (Verified Allergy, Intermediate, HIVES, 05/27/20) IVAN MCCOY MD Jun 18, 2020 11:24
--- NOTE | 2020-06-18 11:24 | IPNPDOC ---
Text Note Date of Service The patient was seen on 06/18/20. NOTE SUBJECTIVE: -No acute complaints this AM. -AAOx3, denies abdominal pain. OBJECTIVE: PHYSICAL EXAMINATION: VS: Please see below Constitutional: NAD, resting in bed. AAOX3 ENT: Sclera are clear. Respiratory: Lungs CTA bilaterally. No respiratory distress. No use of acce ssory muscles. Cardiovascular: NSR, S1 and S2 are normal, no murmur Gastrointestinal: Abdomen is soft, non distended, non tender, BS present. Musculoskeletal: No lower extremity edema. RUE 5/5, LUE 5/5, BLE 5/5 Neurologic: No focal neurological deficit. CN2-12 intact. no sensory or motor impairment Skin: Warm, dry Psych: mood and affect appropriate LABORATORY DATA: Reviewed ALT 1093 AST 255 MICROBIOLOGY: UCx: contaminated IMAGING: Ct abd/pelvis: No acute abdominopelvic pathology appreciated. Lung bases demonstrate very small pleural effusions and minimal dependent atelectasis. MICROBIOLOGY: Please see below. ASSESSMENT: 34-year-old W admitted for altered mental status secondary to drug intoxication and acute hepatitis likely 2/2 illicit drug use. PLAN: Acute hepatitis, r/o ischemic vs. hepatic injury 2/2 to drug use -INR 1.12, AST 1294--> 255, ALT 1401--> 1093. Bili wnl -Tylenol level, salicylate level on admission low/neg -Hx of cocaine/ amphetamine use -CT abd/pelvis above -Poison control involved with their gambling cashier, still suspicions for tylenol overdose suspected. s/p N-acetylcysteine protocol per poison control, that was dc'd this morning after ALT was down below 1135 per their recs -Discussed case with several people from Poison Control and [facility] liver transplant team, Dr. Brayan Carlos early in admission -s/p aggressive IVF hydration. Polysubstance drug abuse -Amphetamines, cocaine -Drug cessation counselling provided -Monitor for s/s of withdrawl, currently none CPK Elevated cannot r/o 2/2 to spasming vs. drugs, w/ some c/f potential seizures. Now improved. -4800 (peaked), downtrending -Cr wnl -s/p aggressive hydration Hypokalemia, acute -repleted -daily BMP GI px -PPI DVT prophylaxis: -SCDs, teds. Resolved issues: acute drug induced encephalopathy Tachycardia likely 2/2 to intoxication to above, dehydration, agitation (possibly some kind of withdrawal?) Nausea likely 2/2 to acute hepatitis Hypoglycemia, acute and likely 2/2 to nausea DISPOSITION: Patient has no PCP and will need appointment at discharge. DC home VS,Fishbone, I+O VS, Fishbone, I+O Laboratory Tests 06/18/20 02:21 Vital Signs Date Time Temp Pulse Resp B/P (MAP) Pulse Ox O2 Delivery O2 Flow Rate FiO2 06/18/20 06:00 97.7 65 16 100/64 (76) 98 Room Air I&O- Last 24 Hours up to 6 AM 06/18/20 05:59 Intake Total 3617.625 ml Output Total 400 ml Balance 3217.625 ml IVAN MCCOY MD Jun 18, 2020 09:28
== END 2020-06-18 13:22 | disposition home or self-care (01) ==
LOC: M ED 20:35 → M ED INP 20:36 → ENRESERV 06-14 00:56 → M MSPAV 06-14 01:35 → OBSVTOIN 06-15 19:19
PROVIDERS: ADMIT Family Medicine; ATTEND Internal Medicine
DX: B17.9 Acute viral hepatitis, unspecified (principal); G92 Toxic encephalopathy; N17.9 Acute kidney failure, unspecified; M62.82 Rhabdomyolysis; R00.0 Tachycardia, unspecified; Z88.0 Allergy status to penicillin; Z91.040 Latex allergy status; F17.200 Nicotine dependence, unspecified, uncomplicated; F14.90 Cocaine use, unspecified, uncomplicated; E16.2 Hypoglycemia, unspecified; E87.6 Hypokalemia; E86.0 Dehydration

== ENCOUNTER → 2020-06-25 | Outpatient (REF) | payer OTHER ==
[2020-06-25 18:17] LABS: ALBUMIN 4.1 GM/DL (3.2-5.2); ALT/SGPT 222 U/L (12-78); BILIRUBIN,TOTAL 0.5 MG/DL (0.2-1.0); BLOOD UREA NITROGEN 10 MG/DL (7-18); CALCIUM LEVEL 8.8 MG/DL (8.5-10.1); CARBON DIOXIDE LEVEL 31 MEQ/L (21-32); CHLORIDE LEVEL 102 MEQ/L (98-107); CREATININE FOR GFR 0.79 MG/DL (0.55-1.30); GLOMERULAR FILTRATION RATE > 60.0 (>60); GLUCOSE, FASTING 104 MG/DL (70-100); POTASSIUM SERUM 3.6 MEQ/L (3.5-5.1); SODIUM LEVEL 138 MEQ/L (136-145); TOTAL PROTEIN 7.3 GM/DL (6.4-8.2)
== END ==
LOC: M SFHCLERA 15:07
PROVIDERS: ATTEND Student in an Organized Health Care Education/Training Program
DX: K71.9 Toxic liver disease, unspecified (principal)

== ENCOUNTER 2020-10-15 21:34 | Inpatient (IN) | payer OTHER ==
[~2020-10-15] VITALS: Ht 170.2 cm; Wt 58.4 kg
[2020-10-15] MEDS ORDERED: PROPOFOL 1,000 MG/100 ML VIAL As Ordered ONE (21:59)
[2020-10-15] MEDS ORDERED: ACETAMINOPHEN 650 MG SUPP PR ONE (22:05)
[2020-10-15] MEDS ORDERED: ROCURONIUM BROMIDE 50 MG/5 ML VIAL IV ONE (22:05)
[2020-10-15] MEDS ORDERED: ETOMIDATE INJ 20MG/10ML VIAL IV ONE (22:05)
[2020-10-15] MEDS ORDERED: NS 1,000 ML IV ONE (22:10)
[2020-10-15 22:26] LABS: BASO # 0.1 10^3/uL (0.0-0.2); BASO % 0.4 % (0.0-1.0); EOS # 0.1 10^3/uL (0.0-0.5); EOS % 0.6 % (0.0-3.0); HEMATOCRIT 41.1 % (36.0-47.0); LYMPH # 2.5 10^3/uL (1.5-5.0); LYMPH % 19.4 % (24.0-44.0); MEAN CORPUSCULAR HEMOGLOBIN 28.8 pg (27.0-33.0); MEAN CORPUSCULAR HGB CONC 31.6 g/dl (32.0-36.5); MEAN CORPUSCULAR VOLUME 91.1 fl (80.0-96.0); MONO # 0.5 10^3/uL (0.0-0.8); MONO % 3.7 % (2.0-8.0); NEUTROPHILS # 9.5 10^3/uL (1.5-8.5); NEUTROPHILS % 74.3 % (36.0-66.0); PLATELET COUNT, AUTOMATED 335 10^3/uL (150-450); RED BLOOD COUNT 4.51 10^6/uL (4.00-5.40); WHITE BLOOD COUNT 12.7 10^3/uL (4.0-10.0)
[2020-10-15 22:55] LABS: ACETAMINOPHEN LEVEL < 2.0 UG/ML (10.0-30.0); ALBUMIN 4.1 GM/DL (3.2-5.2); ALT/SGPT 37 U/L (12-78); BILIRUBIN,DIRECT 0.1 MG/DL (0.0-0.2); BILIRUBIN,TOTAL 0.4 MG/DL (0.2-1.0); BLOOD UREA NITROGEN 13 MG/DL (7-18); CALCIUM LEVEL 9.2 MG/DL (8.5-10.1); CARBON DIOXIDE LEVEL 19 MEQ/L (21-32); CHLORIDE LEVEL 103 MEQ/L (98-107); CK-MB VALUE MASS 1.9 NG/ML (<3.6); CPK CREATINE PHOSPHOKINASE 253 U/L (26-192); CREATININE FOR GFR 1.83 MG/DL (0.55-1.30); ETHYL ALCOHOL (ETHANOL) 0.066 % (0.000-0.010); GLOMERULAR FILTRATION RATE 33.1 (>60); GLUCOSE, FASTING 211 MG/DL (70-100); MB/CK RELATIVE INDEX 0.75 (< OR =4); POTASSIUM SERUM 4.7 MEQ/L (3.5-5.1); SALICYLATE LEVEL 2.7 MG/DL (5.0-30.0); SODIUM LEVEL 141 MEQ/L (136-145); TOTAL PROTEIN 7.6 GM/DL (6.4-8.2); TROPONIN I < 0.02 NG/ML (< 0.10)
[2020-10-15] MEDS ORDERED: propofoL 1,000 MG in IV 1 EA IV SCH (23:05)
[2020-10-15] MEDS ORDERED: NS IV ONE (23:05)
--- NOTE | 2020-10-15 23:24 | REPVR ---
PROCEDURE INFORMATION: Exam: XR Chest Exam date and time: 10/15/2020 10:15 PM Age: 35 years old Clinical indication: Other: Substance abuse; Additional info: Altered mental status TECHNIQUE: Imaging protocol: XR of the chest. Views: 1 view. COMPARISON: CR PORTABLE CHEST X-RAY 06/13/2020 9:39 PM FINDINGS: Tubes, catheters and devices: Endotracheal tube with the tip 3.5 cm above the bela. Nasogastric tube with the tip at the stomach. Lungs: No acute infiltrate. Pleural spaces: Unremarkable. No pleural effusion. No pneumothorax. Heart/Mediastinum: Unremarkable. No cardiomegaly. Bones/joints: Unremarkable. IMPRESSION: No acute infiltrates. Electronically signed by: Emily Rangel On 10/15/2020 23:23:54 PM
[2020-10-15 23:31] LABS: AMPHETAMINES LEVEL URINE NEGATIVE (NEGATIVE); BARBITURATES URINE NEGATIVE (NEGATIVE); BENZODIAZEPINES URINE NEGATIVE (NEGATIVE); CANNABINOIDS URINE NEGATIVE (NEGATIVE); COCAINE METABOLITE URINE POSITIVE (NEGATIVE); METHADONE URINE NEGATIVE (NEGATIVE); OPIATES URINE NEGATIVE (NEGATIVE); PHENCYCLIDINE URINE NEGATIVE (NEGATIVE)
--- NOTE | 2020-10-15 23:57 | REPVR ---
PROCEDURE INFORMATION: Exam: CT Head Without Contrast Exam date and time: 10/15/2020 10:33 PM Age: 35 years old Clinical indication: Altered mental status/memory loss; Additional info: AMS, trauma TECHNIQUE: Imaging protocol: Computed tomography of the head without contrast. Radiation optimization: All CT scans at this facility use at least one of these dose optimization techniques: automated exposure control; mA and/or kV adjustment per patient size (includes targeted exams where dose is matched to clinical indication); or iterative reconstruction. COMPARISON: 1. CT Head without contrast 2020-06-13 21:[address] Spine,cervical w/o contrast 2020-06-13 21:15 FINDINGS: Brain: Normal. No hemorrhage. Unremarkable white matter. No mass effect. Cerebral ventricles: No ventriculomegaly. Paranasal sinuses: Visualized sinuses are unremarkable. No fluid levels. Mastoid air cells: Visualized mastoid air cells are well aerated. Bones/joints: Unremarkable. No acute fracture. Soft tissues: Unremarkable. IMPRESSION: No acute intracranial abnormality. Electronically signed by: Larry Casanova On 10/15/2020 23:57:19 PM
--- NOTE | 2020-10-15 23:58 | REPVR ---
PROCEDURE INFORMATION: Exam: CT Cervical Spine Without Contrast Exam date and time: 10/15/2020 10:33 PM Age: 35 years old Clinical indication: Injury or trauma; Fall; Blunt trauma; Additional info: AMS, trauma TECHNIQUE: Imaging protocol: Computed tomography images of the cervical spine without contrast. Radiation optimization: All CT scans at this facility use at least one of these dose optimization techniques: automated exposure control; mA and/or kV adjustment per patient size (includes targeted exams where dose is matched to clinical indication); or iterative reconstruction. COMPARISON: 1. CT Spine,cervical w/o contrast 2020-06-13 21:[address] Head without contrast 2020-06-13 21:15 FINDINGS: Bones/joints: No acute fracture. Normal alignment. Discs/Spinal canal/Neural foramina: C5-C6 disc osteophyte complex with mild stenosis. Lungs: Lung apices are normal. Soft tissues: Unremarkable. IMPRESSION: No acute findings. Electronically signed by: Larry Casanova On 10/15/2020 23:58:15 PM
[2020-10-16] VITALS (56 sets, daily range): BP systolic 82–148; BP diastolic 49–92
[2020-10-16] MEDS ORDERED: MIDAZOLAM INJ 2MG/2ML VIAL (J2250 PER 1MG) IV ONE
[2020-10-16] MEDS ORDERED: MIDAZOLAM HCL 50 MG in D5W 40 ML IV SCH ×2
[2020-10-16] MEDS ORDERED: NS 1,000 ML IV SCH (01:30)
[2020-10-16] MEDS ORDERED: REFRIGERATOR IV KEYS XX PRN (01:30)
[2020-10-16 01:37] LABS: APPEARANCE, CSF CLEAR (CLEAR); COLOR, CSF COLORLESS (COLORLESS); CSF TUBE# CELL CNT TUBE 1
[2020-10-16 01:38] LABS: APPEARANCE, CSF CLEAR (CLEAR); COLOR, CSF COLORLESS (COLORLESS); CSF TUBE# CELL CNT TUBE 4
[2020-10-16 01:40] LABS: CSF TUBE# GLU TUBE 3; CSF TUBE# TP TUBE 3; GLUCOSE CSF 107 MG/DL (40-75); TOTAL PROTEIN,CSF 23 MG/DL (15-45)
[2020-10-16] MEDS ORDERED: GLUCOSE 4GM CHEW TABLET PO PRN (01:45)
[2020-10-16] MEDS ORDERED: GLUCAGON INJ 1MG VIAL SC PRN (01:45)
[2020-10-16] MEDS ORDERED: DEXTROSE 50% 50 ML SYRINGE IV PRN (01:45)
[2020-10-16] MEDS ORDERED: VECURONIUM BROMIDE 10MG VIAL IV STA (02:31)
[2020-10-16] MEDS: HumaLOG INSULIN (NovoLOG) PER UNIT SC SCH ×5 (03:03→23:34)
[2020-10-16 03:31] LABS: ABG BASE EXCESS -2.5 (-2.0-2.0); ABG HCO3 21.7 MEQ/L (22.0-26.0); ABG O2 SATURATION 99.1 % (95.0-99.0); ABG PARTIAL PRESSURE CO2 35.7 mmHg (35.0-45.0); ABG PARTIAL PRESSURE O2 215.6 mmHg (75.0-100.0); ABG STANDARD HCO3 22.4 MEQ/L (22.0-26.0); ABG TOTAL CO2 22.8 MEQ/L (22.0-29.0); ABG pH (ARTERIAL) 7.402 UNITS (7.350-7.450)
[2020-10-16] MEDS: propofoL 1,000 MG in IV 1 EA IV SCH ×4 (03:59→22:59)
[2020-10-16 05:17] LABS: BASO % 0.2 % (0.0-1.0); EOS % 0.3 % (0.0-3.0); HEMATOCRIT 32.2 % (36.0-47.0); LYMPH % 9.3 % (24.0-44.0); MEAN CORPUSCULAR HEMOGLOBIN 29.3 pg (27.0-33.0); MEAN CORPUSCULAR HGB CONC 33.5 g/dl (32.0-36.5); MEAN CORPUSCULAR VOLUME 87.5 fl (80.0-96.0); MONO # 0.5 10^3/uL (0.0-0.8); MONO % 4.4 % (2.0-8.0); NEUTROPHILS # 9.1 10^3/uL (1.5-8.5); NEUTROPHILS % 85.2 % (36.0-66.0); RED BLOOD COUNT 3.68 10^6/uL (4.00-5.40); WHITE BLOOD COUNT 10.7 10^3/uL (4.0-10.0)
[2020-10-16 05:22] LABS: HEMOGLOBIN 10.8 g/dl (12.0-15.5)
[2020-10-16 05:23] LABS: PLATELET COUNT, AUTOMATED 142 10^3/uL (150-450)
[2020-10-16 06:00] LABS: ALBUMIN 2.8 GM/DL (3.2-5.2); ALT/SGPT 44 U/L (12-78); BILIRUBIN,TOTAL 0.5 MG/DL (0.2-1.0); BLOOD UREA NITROGEN 12 MG/DL (7-18); CALCIUM LEVEL 7.2 MG/DL (8.5-10.1); CARBON DIOXIDE LEVEL 22 MEQ/L (21-32); CHLORIDE LEVEL 115 MEQ/L (98-107); CHOLESTEROL LEVEL 117 MG/DL (< 200); CPK CREATINE PHOSPHOKINASE 2722 U/L (26-192); CREATININE FOR GFR 0.96 MG/DL (0.55-1.30); GLOMERULAR FILTRATION RATE > 60.0 (>60); GLUCOSE, FASTING 122 MG/DL (70-100); LDH LACTATE DEHYDROGENASE 348 U/L (84-246); PHOSPHORUS LEVEL 1.9 MG/DL (2.5-4.9); POTASSIUM SERUM 2.8 MEQ/L (3.5-5.1); SODIUM LEVEL 146 MEQ/L (136-145); TOTAL PROTEIN 5.1 GM/DL (6.4-8.2); TRIGLYCERIDES LEVEL 81 MG/DL (<150)
[2020-10-16] MEDS: KCL 10MEQ/100ML SWI (KRUN) 10 MEQ in IV 1 EA IV SCH ×2 (06:30→07:37)
[2020-10-16] MEDS: HEPARIN SOD (PORCINE) 5000UNITS/ML 1ML VIAL/SYRINGE SC SCH ×3 (07:08→21:59)
[2020-10-16] MEDS ORDERED: MAG SULF 1GM/100ML (MAG RUN) 1 GM in IV 1 EA IV ONE (07:40)
[2020-10-16] MEDS: ALBUTEROL SULFATE 2.5 MG/0.5 ML INH NEB SOLN NEB SCH ×3 (07:42→19:22)
[2020-10-16] MEDS: MIDAZOLAM HCL 100 MG in D5W 80 ML IV SCH (07:52)
--- NOTE | 2020-10-16 07:57 | CCN ---
CRITICAL CARE NOTE DATE: 10/16/2020 SUBJECTIVE: I was called to the Emergency Department to evaluate this 35-year-old female status post polysubstance overdose. She was brought by EMS after an apparent drug ingestion following which she became violently combative. In the Emergency Department, she was febrile and an endotracheal tube was placed for airway protection. Lumbar puncture was performed and she has been sedated with Propofol and Versed. OBJECTIVE: VITAL SIGNS: At bedside, her temperature was 105, current temperature 98, pulse rate is 68, respirations are 18/18 delivered, no spontaneous breaths are noted. Blood pressure is 90/60. HEENT: Her head is atraumatic. Her pupils are 2 mm, response is difficult to appreciate. The extraocular motion is unable to be tested. There is a question of mild scleral icterus. Endotracheal tube and orogastric tube are in place. NECK: Supple. No meningismus. No jugular venous distention. HEART: Heart sounds are regular without appreciable murmur. LUNGS: Breath sounds essentially clear to auscultation in all pereira, mild coarsening in the bases. Chest is symmetric, moves symmetrically. ABDOMEN: Soft with intact bowel sounds. No palpable mass. EXTREMITIES: Multiple abrasions, all of which are superficial. DIAGNOSTIC STUDIES: Her white cell count is 12.7, differential white cell count shows 74% neutrophils. Hemoglobin is 13, hematocrit 41, platelet count 335,000. Electrolytes: Sodium 141, potassium 4.7, chloride 103, CO2 is 19. BUN is 13, creatinine is 1.83. Glucose is 211, lactic acid is 12.9. Her calcium is 9.2. Bilirubin is 0.4. AST is 27, ALT 37. Her alkaline phosphatase is 67. The serum ammonia was 71. CPK 254. Troponin less than 0.02. Albumin 4.1. Toxicology was positive for cocaine and alcohol. Spinal fluid showed 1-3 white cells, glucose is 107, protein is 23. An arterial blood gas showed a pH of 7.31, pCO2 44, pO2 419. Chest imaging shows no infiltrates. Tube lines are in good position. CT scan of the neck and head were both negative for any significant pathology. On review of her electronic health record, she has had a prior history of drug ingestion, acute kidney injury and liver injury. The primary problem requiring critical attention is substance overdose. She was severely febrile and combative, now temperature has defervesced with acetaminophen and she is sedate. We will proceed with supportive care in line of a tox screen. Acute respiratory failure. Will initiate mechanical ventilatory support and recheck arterial blood gases. Acute kidney injury. Will proceed with aggressive hydration and follow renal indices. She is at risk for rhabdomyolysis given the significant trauma. Metabolic acidosis. Lactic acid was quite elevated. Will repeat the lactic acid and follow pH. Hyperglycemia. Will arrange for fingerstick blood sugars and coverage. DVT prophylaxis, will be addressed with subcutaneous Heparin and sequential hose. Ulcer prophylaxis will be addressed with Protonix. The patient's condition is critical. Prognosis is guarded. I have reviewed the case with the Emergency Department physician and nursing staff. I have updated the ICU Care Team with regard to the patient's status and care plans. We will now facilitate transfer from the Emergency Department to the ICU. 127 minutes was spent in the provision of bedside critical care and coordination excluding any time for the performance of any procedures.
[2020-10-16] MEDS: CHLORHEXIDINE GLUCONATE 0.12 % 15ML UDC (PERIDEX ORAL RINSE) MT SCH ×2 (09:29→21:58)
[2020-10-16] MEDS: PANTOPRAZOLE 40MG VIAL (C9113 PER 1) IV SCH (09:30)
[2020-10-16] MEDS: D5W/0.9% SODIUM CHLORIDE 1,000 ML IV SCH ×2 (09:30→17:10)
[2020-10-16] MEDS: NEOSPORIN TOP OINT 15GM TOP SCH ×2 (09:30→21:58)
[2020-10-16] MEDS ORDERED: POTASSIUM PHOSPHATE INJ 30 MMOL in D5W 500 ML IV ONE (10:00)
[2020-10-16] MEDS ORDERED: MED REC COMMENT (13:36)
[2020-10-16] MEDS ORDERED: DIPH25CA32 PO (13:36)
[2020-10-16 14:41] LABS: ALBUMIN 3.2 GM/DL (3.2-5.2); BLOOD UREA NITROGEN 12 MG/DL (7-18); CALCIUM LEVEL 7.6 MG/DL (8.5-10.1); CARBON DIOXIDE LEVEL 26 MEQ/L (21-32); CHLORIDE LEVEL 112 MEQ/L (98-107); CREATININE FOR GFR 1.09 MG/DL (0.55-1.30); GLOMERULAR FILTRATION RATE > 60.0 (>60); GLUCOSE, FASTING 83 MG/DL (70-100); PHOSPHORUS LEVEL 4.3 MG/DL (2.5-4.9); POTASSIUM SERUM 3.5 MEQ/L (3.5-5.1); SODIUM LEVEL 143 MEQ/L (136-145)
--- NOTE | 2020-10-16 20:43 | ECGEPIP ---
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
[2020-10-17] VITALS (20 sets, daily range): BP systolic 98–142; BP diastolic 51–88
[2020-10-17] MEDS: D5W/0.9% SODIUM CHLORIDE 1,000 ML IV SCH ×3 (01:03→18:22)
[2020-10-17] MEDS: ALBUTEROL SULFATE 2.5 MG/0.5 ML INH NEB SOLN NEB SCH ×4 (02:30→19:18)
[2020-10-17] MEDS: HEPARIN SOD (PORCINE) 5000UNITS/ML 1ML VIAL/SYRINGE SC SCH ×3 (05:10→22:10)
[2020-10-17] MEDS: HumaLOG INSULIN (NovoLOG) PER UNIT SC SCH ×3 (05:10→18:00)
[2020-10-17 05:25] LABS: BASO % 0.3 % (0.0-1.0); EOS # 0.1 10^3/uL (0.0-0.5); EOS % 0.7 % (0.0-3.0); HEMATOCRIT 37.1 % (36.0-47.0); HEMOGLOBIN 12.4 g/dl (12.0-15.5); LYMPH # 0.6 10^3/uL (1.5-5.0); LYMPH % 8.6 % (24.0-44.0); MEAN CORPUSCULAR HEMOGLOBIN 29.4 pg (27.0-33.0); MEAN CORPUSCULAR HGB CONC 33.4 g/dl (32.0-36.5); MEAN CORPUSCULAR VOLUME 87.9 fl (80.0-96.0); MONO # 0.5 10^3/uL (0.0-0.8); MONO % 7.4 % (2.0-8.0); NEUTROPHILS # 5.9 10^3/uL (1.5-8.5); NEUTROPHILS % 82.3 % (36.0-66.0); PLATELET COUNT, AUTOMATED 166 10^3/uL (150-450); RED BLOOD COUNT 4.22 10^6/uL (4.00-5.40); WHITE BLOOD COUNT 7.2 10^3/uL (4.0-10.0)
[2020-10-17 05:47] LABS: ABG BASE EXCESS -4.3 (-2.0-2.0); ABG HCO3 19.7 MEQ/L (22.0-26.0); ABG O2 SATURATION 98.1 % (95.0-99.0); ABG PARTIAL PRESSURE CO2 33.2 mmHg (35.0-45.0); ABG PARTIAL PRESSURE O2 114.3 mmHg (75.0-100.0); ABG STANDARD HCO3 20.9 MEQ/L (22.0-26.0); ABG TOTAL CO2 20.8 MEQ/L (22.0-29.0); ABG pH (ARTERIAL) 7.392 UNITS (7.350-7.450)
[2020-10-17 06:50] LABS: ALBUMIN 3.3 GM/DL (3.2-5.2); ALT/SGPT 3794 U/L (12-78); BILIRUBIN,TOTAL 1.4 MG/DL (0.2-1.0); BLOOD UREA NITROGEN 8 MG/DL (7-18); CALCIUM LEVEL 7.1 MG/DL (8.5-10.1); CARBON DIOXIDE LEVEL 24 MEQ/L (21-32); CHLORIDE LEVEL 115 MEQ/L (98-107); CHOLESTEROL LEVEL 89 MG/DL (< 200); CPK CREATINE PHOSPHOKINASE 2211 U/L (26-192); CREATININE FOR GFR 1.02 MG/DL (0.55-1.30); GLOMERULAR FILTRATION RATE > 60.0 (>60); GLUCOSE, FASTING 115 MG/DL (70-100); PHOSPHORUS LEVEL 3.1 MG/DL (2.5-4.9); POTASSIUM SERUM 3.2 MEQ/L (3.5-5.1); SODIUM LEVEL 146 MEQ/L (136-145); TOTAL PROTEIN 5.7 GM/DL (6.4-8.2); TRIGLYCERIDES LEVEL 106 MG/DL (<150)
[2020-10-17] MEDS ORDERED: ACETAMINOPHEN 325 MG/10.15 ML UDC GT PRN (07:35)
[2020-10-17] MEDS: MIDAZOLAM HCL 100 MG in D5W 80 ML IV SCH ×2 (07:54→08:00)
[2020-10-17] MEDS: IBUPROFEN 100 MG/5 ML SUSP UDC DYE FREE PO PRN (08:13)
--- NOTE | 2020-10-17 08:15 | REP ---
INDICATION: ETT COMPARISON: 10/15/2020 TECHNIQUE: Portable AP view of the chest FINDINGS: Endotracheal tube 4 cm above the bela. Nasogastric tube terminates in the distal esophagus and requires advancement. The mediastinum and cardiac silhouette are stable and within normal limits for portable technique. The lung pereira are stable and without focal consolidation, effusion, or pneumothorax. Skeletal structures intact. IMPRESSION: 1. Nasogastric tube terminates in the distal esophagus and requires advancement. <Electronically signed by Demetrio Mendieta > 10/17/20 0801
[2020-10-17] MEDS ORDERED: POTASSIUM CHLORIDE 10% LIQ 20 MEQ/15 ML UDC PO ONE (08:20)
[2020-10-17] MEDS ORDERED: ACETYLCYSTEINE 0 MG in D5W 500 ML IV ONE (08:55)
[2020-10-17] MEDS ORDERED: ACETYLCYSTEINE 0 MG in D5W 1,000 ML IV ONE (08:55)
[2020-10-17] MEDS: NEOSPORIN TOP OINT 15GM TOP SCH ×2 (09:29→22:09)
[2020-10-17] MEDS: PANTOPRAZOLE 40MG VIAL (C9113 PER 1) IV SCH (09:29)
[2020-10-17 09:30] LABS: LDH LACTATE DEHYDROGENASE 5588 U/L (84-246)
[2020-10-17] MEDS: CHLORHEXIDINE GLUCONATE 0.12 % 15ML UDC (PERIDEX ORAL RINSE) MT SCH ×2 (09:30→22:08)
[2020-10-17 09:44] LABS: INR 1.8; PROTHROMBIN TIME 21.3 SECONDS (12.5-14.3)
[2020-10-17 09:45] LABS: PARTIAL THROMBOPLASTIN TIME 46.8 SECONDS (24.2-38.5)
[2020-10-17] MEDS ORDERED: ACETYLCYSTEINE IV ONE ×2 (10:00→21:00)
[2020-10-17] MEDS ORDERED: D5W IV ONE ×2 (10:00→21:00)
[2020-10-17 10:14] LABS: ACETAMINOPHEN LEVEL < 2.0 UG/ML (10.0-30.0); BILIRUBIN,DIRECT 0.7 MG/DL (0.0-0.2)
--- NOTE | 2020-10-17 11:02 | REP ---
INDICATION: abn liver enzymes COMPARISON: 06/15/2020 TECHNIQUE: Axial noncontrast images from the lung bases to the pubic symphysis with coronal and sagittal reformations. This CT examination was performed using the following dose reduction techniques: Automated exposure control, adjustment of mA and/or kv according to the patient's size, and use of iterative reconstruction technique. FINDINGS: Lung bases demonstrate chronic interstitial changes and trace bibasilar atelectasis. Liver, spleen, pancreas, bilateral adrenal glands are normal. Gallbladder demonstrates layering sludge without acute cholecystitis. Kidneys demonstrate small punctate nonobstructing intrarenal calculi. A nasogastric tube is identified extending into the stomach. There is no evidence for bowel obstruction or acute inflammatory process. Pelvis demonstrates Weaver catheter in collapsed bladder and age-appropriate uterus/adnexa. No ascites. No free air. No adenopathy. No focal inflammatory stranding. Abdominal aorta without aneurysm. Musculoskeletal structures are intact and without acute osseous abnormality. IMPRESSION: No acute abdominopelvic pathology appreciated. Trace bibasilar atelectasis. Cholelithiasis. Punctate nonobstructing bilateral nephroliths. <Electronically signed by Demetrio Mendieta > 10/17/20 2344
[2020-10-17 12:55] LABS: HEPATITIS B SURFACE ANTIGEN NEGATIVE (NEGATIVE)
[2020-10-17 13:23] LABS: HEPATITIS B CORE ANTIBODY IGM NEGATIVE (NEGATIVE)
[2020-10-17 13:25] LABS: HEPATITIS A ANTIBODY IGM NEGATIVE (NEGATIVE)
[2020-10-17] MEDS: propofoL 1,000 MG in IV 1 EA IV SCH (15:39)
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
[2020-10-17] MEDS: D5W/0.45% SODIUM CHLORIDE 1,000 ML IV SCH (22:09)
[2020-10-17 23:00] LABS: ACETAMINOPHEN LEVEL < 2.0 UG/ML (10.0-30.0); ALBUMIN 3.4 GM/DL (3.2-5.2); ALT/SGPT 3686 U/L (12-78); BILIRUBIN,TOTAL 2.2 MG/DL (0.2-1.0); BLOOD UREA NITROGEN 4 MG/DL (7-18); CALCIUM LEVEL 7.6 MG/DL (8.5-10.1); CARBON DIOXIDE LEVEL 20 MEQ/L (21-32); CHLORIDE LEVEL 114 MEQ/L (98-107); CHOLESTEROL LEVEL 95 MG/DL (< 200); CPK CREATINE PHOSPHOKINASE 2815 U/L (26-192); CREATININE FOR GFR 0.82 MG/DL (0.55-1.30); GLOMERULAR FILTRATION RATE > 60.0 (>60); GLUCOSE, FASTING 100 MG/DL (70-100); LDH LACTATE DEHYDROGENASE 1693 U/L (84-246); PHOSPHORUS LEVEL 2.1 MG/DL (2.5-4.9); POTASSIUM SERUM 4.2 MEQ/L (3.5-5.1); SODIUM LEVEL 143 MEQ/L (136-145); TRIGLYCERIDES LEVEL 108 MG/DL (<150)
[2020-10-18] VITALS (25 sets, daily range): BP systolic 100–151; BP diastolic 56–89
[2020-10-18] MEDS: HumaLOG INSULIN (NovoLOG) PER UNIT SC SCH ×5 (00:44→23:35)
[2020-10-18] MEDS ORDERED: D5W IV ONE (01:07)
[2020-10-18] MEDS ORDERED: ACETYLCYSTEINE IV ONE (01:07)
[2020-10-18] MEDS: ALBUTEROL SULFATE 2.5 MG/0.5 ML INH NEB SOLN NEB SCH ×4 (02:02→19:19)
[2020-10-18] MEDS: IBUPROFEN 100 MG/5 ML SUSP UDC DYE FREE PO PRN ×2 (02:12→22:56)
[2020-10-18] MEDS: propofoL 1,000 MG in IV 1 EA IV SCH ×2 (04:24→17:45)
[2020-10-18 04:38] LABS: BASO % 0.2 % (0.0-1.0); EOS # 0.1 10^3/uL (0.0-0.5); EOS % 0.4 % (0.0-3.0); HEMATOCRIT 35.9 % (36.0-47.0); LYMPH # 0.9 10^3/uL (1.5-5.0); LYMPH % 7.8 % (24.0-44.0); MEAN CORPUSCULAR HEMOGLOBIN 29.3 pg (27.0-33.0); MEAN CORPUSCULAR HGB CONC 33.4 g/dl (32.0-36.5); MEAN CORPUSCULAR VOLUME 87.8 fl (80.0-96.0); MONO # 0.4 10^3/uL (0.0-0.8); MONO % 3.5 % (2.0-8.0); NEUTROPHILS # 10.3 10^3/uL (1.5-8.5); NEUTROPHILS % 87.7 % (36.0-66.0); PLATELET COUNT, AUTOMATED 155 10^3/uL (150-450); RED BLOOD COUNT 4.09 10^6/uL (4.00-5.40); WHITE BLOOD COUNT 11.7 10^3/uL (4.0-10.0)
[2020-10-18 05:17] LABS: ALT/SGPT 3036 U/L (12-78); BILIRUBIN,TOTAL 1.9 MG/DL (0.2-1.0); BLOOD UREA NITROGEN 3 MG/DL (7-18); CARBON DIOXIDE LEVEL 25 MEQ/L (21-32); CHLORIDE LEVEL 110 MEQ/L (98-107); CHOLESTEROL LEVEL 101 MG/DL (< 200); CPK CREATINE PHOSPHOKINASE 2201 U/L (26-192); CREATININE FOR GFR 0.77 MG/DL (0.55-1.30); GLOMERULAR FILTRATION RATE > 60.0 (>60); GLUCOSE, FASTING 160 MG/DL (70-100); LDH LACTATE DEHYDROGENASE 847 U/L (84-246); PHOSPHORUS LEVEL 1.7 MG/DL (2.5-4.9); POTASSIUM SERUM 3.3 MEQ/L (3.5-5.1); SODIUM LEVEL 142 MEQ/L (136-145); TOTAL PROTEIN 5.5 GM/DL (6.4-8.2); TRIGLYCERIDES LEVEL 125 MG/DL (<150)
[2020-10-18 05:23] LABS: ABG BASE EXCESS -0.3 (-2.0-2.0); ABG HCO3 23.1 MEQ/L (22.0-26.0); ABG O2 SATURATION 99.1 % (95.0-99.0); ABG PARTIAL PRESSURE CO2 34.1 mmHg (35.0-45.0); ABG PARTIAL PRESSURE O2 178.4 mmHg (75.0-100.0); ABG STANDARD HCO3 24.2 MEQ/L (22.0-26.0); ABG TOTAL CO2 24.2 MEQ/L (22.0-29.0); ABG pH (ARTERIAL) 7.449 UNITS (7.350-7.450)
[2020-10-18] MEDS: HEPARIN SOD (PORCINE) 5000UNITS/ML 1ML VIAL/SYRINGE SC SCH ×3 (05:33→22:56)
[2020-10-18] MEDS ORDERED: POTASSIUM CHLORIDE 10% LIQ 20 MEQ/15 ML UDC PO ONE (05:40)
[2020-10-18] MEDS ORDERED: POTASSIUM PHOSPHATE INJ 30 MMOL in D5W 500 ML IV ONE (06:00)
[2020-10-18] MEDS: D5W/0.45% SODIUM CHLORIDE 1,000 ML IV SCH ×3 (07:07→16:45)
--- NOTE | 2020-10-18 08:17 | REP ---
INDICATION: ETT COMPARISON: 10/17/2020 TECHNIQUE: Portable AP view of the chest FINDINGS: Endotracheal tube 4 cm above the bela. Nasogastric tube courses below left hemidiaphragm. Mediastinum and cardiac silhouette are within normal limits and stable. Lung pereira are well aerated and clear. No acute consolidation, effusion, or pneumothorax. Skeletal structures are stable and appear intact. IMPRESSION: No acute cardiopulmonary process appreciated. <Electronically signed by Demetrio Mendieta > 10/18/20 [id number]
[2020-10-18 09:12] LABS: MAGNESIUM LEVEL 1.9 MG/DL (1.8-2.4)
[2020-10-18] MEDS ORDERED: VANCOMYCIN HCL 1,000 MG, VIAL MATE ADAPTER 1 EACH in NS 250 ML IV SCH (09:20)
[2020-10-18 09:28] LABS: INR 1.34; PROTHROMBIN TIME 16.9 SECONDS (12.5-14.3)
[2020-10-18 09:29] LABS: PARTIAL THROMBOPLASTIN TIME 44.5 SECONDS (24.2-38.5)
[2020-10-18 09:32] LABS: GC DNA AMPLIFICATION NEGATIVE (NEGATIVE)
[2020-10-18 09:49] LABS: HCG, SERUM QUANTITATIVE < 1.0 MIU/ML
[2020-10-18] MEDS ORDERED: VANCOMYCIN HCL 750 MG, VIAL MATE ADAPTER 1 EACH in NS 250 ML IV ONE (10:00)
[2020-10-18] MEDS ORDERED: CALCIUM GLUCONATE 1,000 MG in D5W MINI-BAG PLUS 100 ML IV ONE (10:00)
--- NOTE | 2020-10-18 11:09 | REP ---
INDICATION: central line. COMPARISON: 10/18/2020 at 6:48 a.m. TECHNIQUE: Portable FINDINGS: The technique utilized in obtaining the radiograph has magnified the cardiac silhouette and accentuated the interstitial markings. Since the prior exam a right-sided internal jugular central venous catheter has been placed. The tip is in the superior vena cava. There is no pneumothorax. Lung pereira are clear and stable. The tip of the nasogastric tube is beyond the confines of the radiograph but presumably unchanged from the prior exam. There is no change in the endotracheal tube. The tip remains in satisfactory position at the level of the clavicular heads. IMPRESSION: There is no acute cardiopulmonary disease. Tubes and line as described above. <Electronically signed by Johnny Murphy > 10/18/20 [id number]
[2020-10-18] MEDS: PANTOPRAZOLE 40MG VIAL (C9113 PER 1) IV SCH (11:20)
[2020-10-18] MEDS: CHLORHEXIDINE GLUCONATE 0.12 % 15ML UDC (PERIDEX ORAL RINSE) MT SCH ×2 (11:20→20:50)
[2020-10-18] MEDS: NEOSPORIN TOP OINT 15GM TOP SCH ×2 (11:21→20:50)
[2020-10-18] MEDS ORDERED: VANCOMYCIN HCL 500 MG in D5W MINI-BAG PLUS 100 ML IV ONE (12:00)
[2020-10-18] MEDS ORDERED: MAG SULF 1GM/100ML (MAG RUN) 1 GM in IV 1 EA IV ONE (17:25)
[2020-10-18] MEDS: VANCOMYCIN HCL 750 MG, VIAL MATE ADAPTER 1 EACH in NS 250 ML IV SCH (18:42)
[2020-10-18] MEDS: MIDAZOLAM INJ 2MG/2ML VIAL (J2250 PER 1MG) IV PRN ×3 (18:45→23:34)
[2020-10-18] MEDS: MICONAZOLE-7 VAGINAL 2% CREAM 47.7 GM PV SCH (20:50)
[2020-10-19] VITALS (16 sets, daily range): BP systolic 107–123; BP diastolic 57–81; O2SAT 100
[2020-10-19] MEDS: ALBUTEROL SULFATE 2.5 MG/0.5 ML INH NEB SOLN NEB SCH ×2 (00:31→07:28)
[2020-10-19] MEDS: MIDAZOLAM INJ 2MG/2ML VIAL (J2250 PER 1MG) IV PRN ×2 (02:53→05:04)
[2020-10-19] MEDS: D5W/0.45% SODIUM CHLORIDE 1,000 ML IV SCH (02:53)
[2020-10-19] MEDS: VANCOMYCIN HCL 750 MG, VIAL MATE ADAPTER 1 EACH in NS 250 ML IV SCH (02:53)
[2020-10-19 05:18] LABS: BASO % 0.3 % (0.0-1.0); EOS # 0.2 10^3/uL (0.0-0.5); EOS % 1.9 % (0.0-3.0); HEMATOCRIT 32.8 % (36.0-47.0); HEMOGLOBIN 10.7 g/dl (12.0-15.5); LYMPH # 0.8 10^3/uL (1.5-5.0); LYMPH % 10.5 % (24.0-44.0); MEAN CORPUSCULAR HGB CONC 32.6 g/dl (32.0-36.5); MEAN CORPUSCULAR VOLUME 88.9 fl (80.0-96.0); MONO # 0.6 10^3/uL (0.0-0.8); MONO % 7.7 % (2.0-8.0); NEUTROPHILS # 6.3 10^3/uL (1.5-8.5); NEUTROPHILS % 78.7 % (36.0-66.0); PLATELET COUNT, AUTOMATED 151 10^3/uL (150-450); RED BLOOD COUNT 3.69 10^6/uL (4.00-5.40)
[2020-10-19 05:57] LABS: ALBUMIN 2.6 GM/DL (3.2-5.2); ALT/SGPT 1770 U/L (12-78); BILIRUBIN,TOTAL 1.3 MG/DL (0.2-1.0); BLOOD UREA NITROGEN 2 MG/DL (7-18); CALCIUM LEVEL 7.8 MG/DL (8.5-10.1); CARBON DIOXIDE LEVEL 27 MEQ/L (21-32); CHLORIDE LEVEL 111 MEQ/L (98-107); CHOLESTEROL LEVEL 109 MG/DL (< 200); CPK CREATINE PHOSPHOKINASE 950 U/L (26-192); GLOMERULAR FILTRATION RATE > 60.0 (>60); GLUCOSE, FASTING 135 MG/DL (70-100); LDH LACTATE DEHYDROGENASE 292 U/L (84-246); POTASSIUM SERUM 3.2 MEQ/L (3.5-5.1); SODIUM LEVEL 143 MEQ/L (136-145); TOTAL PROTEIN 5.6 GM/DL (6.4-8.2); TRIGLYCERIDES LEVEL 100 MG/DL (<150)
[2020-10-19 06:02] LABS: ABG pH (ARTERIAL) 7.454 UNITS (7.350-7.450)
[2020-10-19 06:03] LABS: ABG BASE EXCESS -0.7 (-2.0-2.0); ABG HCO3 22.6 MEQ/L (22.0-26.0); ABG O2 SATURATION 98.1 % (95.0-99.0); ABG PARTIAL PRESSURE O2 130.4 mmHg (75.0-100.0); ABG STANDARD HCO3 23.9 MEQ/L (22.0-26.0); ABG TOTAL CO2 23.6 MEQ/L (22.0-29.0)
[2020-10-19] MEDS: HEPARIN SOD (PORCINE) 5000UNITS/ML 1ML VIAL/SYRINGE SC SCH ×3 (06:16→21:45)
[2020-10-19] MEDS: HumaLOG INSULIN (NovoLOG) PER UNIT SC SCH (06:16)
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
[2020-10-19] MEDS: NEOSPORIN TOP OINT 15GM TOP SCH ×2 (08:48→20:09)
[2020-10-19] MEDS: KCL 20MEQ IN 100ML SWI (KRUN) 20 MEQ in IV 1 EA IV SCH ×4 (08:48→10:11)
[2020-10-19] MEDS: CHLORHEXIDINE GLUCONATE 0.12 % 15ML UDC (PERIDEX ORAL RINSE) MT SCH ×2 (08:48→20:09)
[2020-10-19] MEDS: PANTOPRAZOLE 40MG VIAL (C9113 PER 1) IV SCH (08:48)
[2020-10-19] MEDS: LevoFLOXacin IV 750 MG in IV 1 EA IV SCH (08:48)
[2020-10-19] MEDS ORDERED: POTASSIUM PHOSPHATE INJ 20 MMOL in D5W 250 ML IV ONE (11:00)
--- NOTE | 2020-10-19 13:25 | REP ---
INDICATION: ETT. COMPARISON: 10/18/2020, 10/17/2020.. TECHNIQUE: AP seated portable FINDINGS: The endotracheal tube, nasogastric tube and right jugular catheter are all unchanged. There is no acute cardiopulmonary change in the interval. No new or acute finding. IMPRESSION: 1. Lines and tubes unchanged. No acute cardiopulmonary disease. <Electronically signed by José Miguel Gordillo > 10/19/20 [id number]
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
--- NOTE | 2020-10-19 14:17 | RO ---
OPERATIVE NOTE DATE OF OPERATION: 10/18/2020 PREPROCEDURAL DIAGNOSIS: Vascular access. POSTPROCEDURAL DIAGNOSIS: Vascular access. PROCEDURE: Central Line. INDICATION: Infiltrated IV access and need for vascular access. ATTENDING PHYSICIAN: Dr. Mary Jo St MD AIR CREW SUPERVISOR: Dr. Kimberlyn Almodovar DO CONSENT: Due to the emergent nature of the procedure, permission was implied. ANESTHESIA: 1% lidocaine PROCEDURE SUMMARY: A time-out was performed. Full sterile technique was maintained throughout the procedure, including surgical tie mask, protective eye wear, full gown and sterile gloves. The patient was placed in Trendelenburg position. The right neck region was prepped using chlorhexidine scrub and draped in a sterile fashion using a full drape and a sterile probe cover employed. The right internal jugular vein was identified using real-time ultrasound. Anesthesia was achieved over the vein using 1% lidocaine. Using realtime out of plane guidance, the introducer needle was inserted into the internal jugular vein. Under ultrasound visualization, venous blood was drawn. The syringe was removed and a guidewire was advanced into the introducer needle. The introducer needle was removed over the guidewire. A small incision was made at the skin surface with the scalpel and the dilator was exchanged over the guidewire. After appropriate dilation was obtained, the dilator was exchanged over the wire for a triple lumen central venous catheter. The wire was removed and a catheter was sutured in place at 17.5 cm. A sterile chlorhexidine impregnated dressing was placed over the catheter at the insertion site. The patient tolerated the procedure without any hemodynamic compromise. At the time of procedure completion, all ports were aspirated and flushed appropriately. Post procedural chest x-ray showed the right internal jugular triple lumen catheter is in the SVC with no pneumothorax. Estimated blood loss was less than 2 ml. Mary Jo Jin, was present and supervised the entirety of the procedure. RHINA
[2020-10-19 17:14] LABS: ANTI-SMOOTH MUSCLE ANTIBODY 12 Units (0-19); ANTINUCLEAR ANTIBODIES DIRECT Negative (Negative); CERULOPLASMIN 17.5 mg/dL (19.0-39.0)
[2020-10-19] MEDS: ONDANSETRON 4 MG ORAL DISINTEGRATING TAB SL PRN (20:08)
[2020-10-19] MEDS: CHLORASEPTIC SPRAY MT PRN (20:09)
[2020-10-19] MEDS: MICONAZOLE-7 VAGINAL 2% CREAM 47.7 GM PV SCH (20:09)
[2020-10-20] VITALS (7 sets, daily range): BP systolic 109–138; BP diastolic 64–83
[2020-10-20 05:01] LABS: BASO % 0.3 % (0.0-1.0); EOS # 0.2 10^3/uL (0.0-0.5); HEMATOCRIT 33.9 % (36.0-47.0); LYMPH # 1.2 10^3/uL (1.5-5.0); LYMPH % 18.2 % (24.0-44.0); MEAN CORPUSCULAR HEMOGLOBIN 29.1 pg (27.0-33.0); MEAN CORPUSCULAR HGB CONC 32.4 g/dl (32.0-36.5); MEAN CORPUSCULAR VOLUME 89.7 fl (80.0-96.0); MONO # 0.7 10^3/uL (0.0-0.8); MONO % 11.1 % (2.0-8.0); NEUTROPHILS # 4.4 10^3/uL (1.5-8.5); NEUTROPHILS % 66.2 % (36.0-66.0); PLATELET COUNT, AUTOMATED 158 10^3/uL (150-450); RED BLOOD COUNT 3.78 10^6/uL (4.00-5.40); WHITE BLOOD COUNT 6.7 10^3/uL (4.0-10.0)
[2020-10-20 05:39] LABS: ALBUMIN 3.1 GM/DL (3.2-5.2); ALT/SGPT 1271 U/L (12-78); BILIRUBIN,TOTAL 1.4 MG/DL (0.2-1.0); BLOOD UREA NITROGEN 8 MG/DL (7-18); CALCIUM LEVEL 8.5 MG/DL (8.5-10.1); CARBON DIOXIDE LEVEL 27 MEQ/L (21-32); CHLORIDE LEVEL 111 MEQ/L (98-107); CHOLESTEROL LEVEL 148 MG/DL (< 200); CPK CREATINE PHOSPHOKINASE 1136 U/L (26-192); CREATININE FOR GFR 0.62 MG/DL (0.55-1.30); GLOMERULAR FILTRATION RATE > 60.0 (>60); GLUCOSE, FASTING 96 MG/DL (70-100); LDH LACTATE DEHYDROGENASE 298 U/L (84-246); MAGNESIUM LEVEL 2.1 MG/DL (1.8-2.4); PHOSPHORUS LEVEL 2.7 MG/DL (2.5-4.9); POTASSIUM SERUM 3.7 MEQ/L (3.5-5.1); SODIUM LEVEL 143 MEQ/L (136-145); TOTAL PROTEIN 6.6 GM/DL (6.4-8.2); TRIGLYCERIDES LEVEL 179 MG/DL (<150)
[2020-10-20] MEDS: HEPARIN SOD (PORCINE) 5000UNITS/ML 1ML VIAL/SYRINGE SC SCH ×3 (05:51→20:18)
[2020-10-20] MEDS: LevoFLOXacin IV 750 MG in IV 1 EA IV SCH (08:28)
[2020-10-20] MEDS: PANTOPRAZOLE 40MG VIAL (C9113 PER 1) IV SCH (08:28)
[2020-10-20] MEDS: CHLORASEPTIC SPRAY MT PRN (08:29)
[2020-10-20] MEDS: NEOSPORIN TOP OINT 15GM TOP SCH ×2 (08:29→20:18)
[2020-10-20] MEDS ORDERED: guaiFENesin SYRUP 200 MG/10 ML UDC PO PRN (10:10)
[2020-10-20] MEDS: ONDANSETRON 4 MG ORAL DISINTEGRATING TAB SL PRN (11:10)
[2020-10-20] MEDS: metroNIDAZOLE (FLAGYL) 500MG TABLET PO SCH ×2 (12:18→20:18)
--- NOTE | 2020-10-20 12:35 | CCN ---
CRITICAL CARE PROGRESS NOTE DATE: 10/20/2020 SUBJECTIVE: The patient was seen and examined this morning during bedside rounds. The patient was extubated yesterday and was subsequently able to be weaned off oxygen supplementation to room air only. She did have some hoarseness of her voice but that has improved today. She was complaining of a cough overnight with some occasional productive sputum with yellow mucous. She is also reporting some numbness in her left arm and hand where she had the previous significant edema. The swelling has improved in her left hand and arm significantly. She does have palpable pulses and is able to move and skiver counter with her hand but reports the numbness still. The patient denies any abdominal pain. No nausea or vomiting. She denies any chest pain and no shortness of breath. She did get up out of bed into a wheelchair this morning and did have some slight lightheadedness but no syncope. She has had no fevers overnight now. OBJECTIVE: PHYSICAL EXAMINATION: VITAL SIGNS: Temperature 98.7, pulse 78, respirations 18, blood pressure 109/70, 02 sat 99% on room air. INTAKE AND OUTPUT: In's 2.0 liters, out 3.6 liters, net negative 1.6 liters. GENERAL APPEARANCE: The patient is sitting in the bed, awake and alert and oriented x3. She does not appear to be in any acute distress. She is not using any accessory muscles for respiration. She does have some hoarseness of her voice. HEENT: Normocephalic and atraumatic. Pupils are reactive to light bilaterally. NECK: Supple. Trachea is midline. No palpable cervical adenopathy. Previous right IJ catheter has been removed and there is a dressing in place which is clean, dry and intact. CARDIAC: Regular rate and rhythm, normal S1, S2. No obvious murmurs appreciated. PULMONARY: Clear to auscultation bilaterally with no significant rales, rhonchi or wheezing noted. ABDOMEN: Soft, nontender, nondistended. No palpable masses. EXTREMITIES: No significant lower extremity edema in the bilateral lower extremities. There are areas of abrasions and ecchymosis in the lower extremities as well as some areas of abrasions in her hands and arms. The left arm edema has significantly improved compared to yesterday. Peripheral pulses are palpable including radial pulses. LABORATORY STUDIES: WBC 6.7, hemoglobin is 11.0, platelet count 158. Chemistries: Sodium is 143, potassium is 3.7, chloride is 111, bicarbonate is 27, BUN 8, creatinine 0.62, glucose 96, phos 2.7, magnesium 2.1, T-bili 1.4, AST ALT trending down to 162 and 1,271. CPK 1,136, albumin is 2.1. WOLF anti smooth antibodies negative. Chlamydia and gonorrhea negative. Microbiology: Blood cultures from 10/18/20 one bottle preliminary shows gram positive cocci in clusters. The other bottle shows no growth to date. Genital culture preliminary shows Gardnerella vaginalis. IMAGING: Chest x-ray this morning shows the central line ET tube and OG tube has been removed. There are no focal opacities noted. No infiltrates. ASSESSMENT AND PLAN: Miss Hutchinson is a 35-year-old female with a past medical history of substance abuse with prior history of acute liver injury secondary to intoxication during a previous hospitalization, who presented with similar complaints of altered mental status secondary to acute drug intoxication. The patient was extremely combative on EMS arrival and in the E.D. required intubation and mechanical ventilation for airway protection given the sedation needed for her extreme agitation and combativeness. The patient was also found during this admission to have acute liver failure as well as intermittent fevers. 1. Neurologic - The patient had encephalopathy in the setting of acute drug intoxication. Her U-tox was positive for cocaine. Her initial head CT as well as a lumbar puncture done on admission did not show any evidence of meningitis or encephalitis. The patient was extubated yesterday and has been off of all sedation since yesterday morning. She is awake, alert and oriented times three and appears appropriate. The patient admits that her drug use was cocaine only and denies any other agents. She does have a previous longstanding history of cocaine abuse and has never been in rehab before. When discussed with her today she does not wish to go to rehab but states she will quit using any drugs on her own. She denies any suicidal attempt. Would continue to address the possibility of outpatient rehab for her drug abuse. 2. Cardiac - The patient has no prior history of any cardiac disease. She has maintained her blood pressures throughout this admission without the need of any vasopressor use. We will continue to monitor. She does not appear to have any hypertension. 3. Pulmonary - The patient was intubated and on mechanical ventilation with her acute intoxication and need for airway protection with sedation. She was successfully extubated on 10/19/20. The patient has been weaned off to room air and has not required any nasal cannula oxygen supplementation. The patient is complaining of a cough and some hoarseness of her voice, likely secondary to irritation with her endotracheal tube. We will give her Guaifenesin cough syrup p.r.n. as needed, and she is also getting Cepacol throat spray currently. 4. I.D. - The patient has had intermittent fevers throughout her hospitalization. She did have infectious workup including lumbar puncture which was negative for meningitis and encephalitis. She also had a CT of her abdomen and pelvis which did not show any acute abdominal pathology. Her chest x-ray imaging also did not show any focal opacities or infiltrates to suggest pneumonia. The patient does have various areas of abrasions and skin lesions on her extremities and there was concern for possible cellulitis. She was given a dose of Vancomycin, however her MRSA screen was negative and so she was continued with just Levaquin for broad spectrum antibiotic coverage. There was also vaginal discharge noted during her admission and she had testing for gonorrhea and chlamydia which was negative. She also had a genital culture done which did grow Gardnerella vaginalis. Her repeat blood culture, one bottle, was also positive for gram positive cocci although this may potentially be a contaminate. With her genital cultures and a blood culture showing gram positive cocci, would have changed her to more direct antibiotic therapy with Amoxicillin or Ampicillin, however she has reported a Penicillin allergy. Would follow up final results of her blood cultures and then consider deescalating her antibiotics at that time, possibly cephalosporin,depending on culture results. We will continue to trend procalcitonin to slitter creaser slotter helper in deescalation and discontinuation of antibiotics. The patient's fever curve and leukocytosis has improved now. 5. GI - The patient has a history of substance abuse and previous hospitalization with acute liver injury secondary to drug intoxication. She presented with similar complaint with acute drug intoxication and acute liver failure. The patient did receive N Acetylcysteine protocol although her Tylenol level was negative, to help with possible other drug toxin ingestion. The patient's transaminitis and liver function have been improving. Her antibody testing for autoimmune hepatitis is negative and her other testing for hepatitis antibodies were negative. The patient had a serum ceruloplasmin level which was mildly reduced. Would check for a urine copper and serum copper levels as they can still be low in patients without Slick's disease. It can be low sometimes with drug induced liver disease. Given her previous history of liver failure however, would continue with workup to insure there is no component of Slick's disease contributing. The patient was strongly urged to discontinue all recreational drug use as we did explain she had acute liver failure and if she has any worsening liver failure or any other episodes that at some point she may end up requiring transfer and evaluation for a potential liver transplant. Given her acute drug intoxication, however, this may preclude her candidacy for transplant. 6. Nephrology - The patient had acute kidney injury on admission which resolved. She has intermittently required repletion of her electrolytes, and so we will continue to monitor. She did have elevated CPK as well although no evidence of rhabdomyolysis. Her CPK was trending down. Her IV fluids were discontinued previously. Her CPK trended up slightly today and so we would encourage her to increase her p.o. fluid intake. DVT PROPHYLAXIS: Heparin. CODE STATUS: Full code. Total critical care time spent not including procedures approximately 50 minutes. Please do not hesitate to call if any further questions or concerns. MTDD
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
--- NOTE | 2020-10-20 19:47 | REP ---
INDICATION: ETT. COMPARISON: 10/19/2020, 10/18/2020, 10/17/2020. TECHNIQUE: AP portable seated chest. FINDINGS: The endotracheal tube, nasogastric tube and right jugular central catheter have all been removed. The lung pereira are well inflated and clear. The heart, mediastinal and hilar contours are normal. The aorta and airway were unremarkable. Visualized bones are intact. No free air under the diaphragm. IMPRESSION: Status post removal of endotracheal, nasogastric tubes and right jugular central catheter. No acute cardiopulmonary change. <Electronically signed by José Miguel Gordillo > 10/20/201943
[2020-10-20] MEDS: MICONAZOLE-7 VAGINAL 2% CREAM 47.7 GM PV SCH (21:29)
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
[2020-10-21] MEDS: HEPARIN SOD (PORCINE) 5000UNITS/ML 1ML VIAL/SYRINGE SC SCH (05:45)
[2020-10-21 06:00] VITALS: BP 118/78
[2020-10-21] MEDS ORDERED: LevoFLOXacin 750 MG TABLET PO SCH (06:00)
[2020-10-21 06:18] LABS: BASO # 0.1 10^3/uL (0.0-0.2); BASO % 0.8 % (0.0-1.0); EOS # 0.2 10^3/uL (0.0-0.5); HEMATOCRIT 36.9 % (36.0-47.0); LYMPH # 1.6 10^3/uL (1.5-5.0); LYMPH % 21.8 % (24.0-44.0); MEAN CORPUSCULAR HEMOGLOBIN 28.6 pg (27.0-33.0); MEAN CORPUSCULAR HGB CONC 32.5 g/dl (32.0-36.5); MEAN CORPUSCULAR VOLUME 88.1 fl (80.0-96.0); MONO # 0.9 10^3/uL (0.0-0.8); MONO % 12.1 % (2.0-8.0); NEUTROPHILS # 4.3 10^3/uL (1.5-8.5); NEUTROPHILS % 60.3 % (36.0-66.0); PLATELET COUNT, AUTOMATED 188 10^3/uL (150-450); RED BLOOD COUNT 4.19 10^6/uL (4.00-5.40); WHITE BLOOD COUNT 7.1 10^3/uL (4.0-10.0)
[2020-10-21 06:51] LABS: ALBUMIN 3.4 GM/DL (3.2-5.2); ALT/SGPT 932 U/L (12-78); BLOOD UREA NITROGEN 13 MG/DL (7-18); CALCIUM LEVEL 8.8 MG/DL (8.5-10.1); CARBON DIOXIDE LEVEL 27 MEQ/L (21-32); CHLORIDE LEVEL 106 MEQ/L (98-107); CREATININE FOR GFR 0.67 MG/DL (0.55-1.30); GLOMERULAR FILTRATION RATE > 60.0 (>60); GLUCOSE, FASTING 91 MG/DL (70-100); MAGNESIUM LEVEL 2.1 MG/DL (1.8-2.4); POTASSIUM SERUM 3.5 MEQ/L (3.5-5.1); SODIUM LEVEL 142 MEQ/L (136-145); TOTAL PROTEIN 6.9 GM/DL (6.4-8.2)
[2020-10-21] MEDS ORDERED: LEVO750T13 PO (08:14)
[2020-10-21] MEDS ORDERED: FLAG500T PO (08:14)
--- NOTE | 2020-10-21 08:54 | REP ---
INDICATION: HAND PAIN AND NUMBNESS COMPARISON: None. TECHNIQUE: Four views left hand. FINDINGS: There is no evidence of acute fracture, dislocation, or intrinsic bone disease. IMPRESSION: No fracture or dislocation. <Electronically signed by Jose R Duggan > 10/21/20 0905
[2020-10-21] MEDS ORDERED: PANTOPRAZOLE 40MG TAB (PROTONIX) PO SCH (09:00)
[2020-10-21] MEDS: NEOSPORIN TOP OINT 15GM TOP SCH (09:09)
[2020-10-21] MEDS: metroNIDAZOLE (FLAGYL) 500MG TABLET PO SCH (09:09)
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
== END 2020-10-21 10:45 | disposition home or self-care (01) ==
LOC: M ED 21:34 → M ED INP 10-16 01:28 → M ICU 10-16 03:40 → ENRESERV 10-16 09:51 → ENRESERVDT 10-16 14:28 → ENRESERVTM 10-16 14:28 → M MS5PR 10-20 09:13
PROVIDERS: ADMIT Internal Medicine Pulmonary Disease; ATTEND Internal Medicine Nephrology
PROC: 5A1945Z Respiratory Ventilation, 24-96 Consecutive Hours (ICD-10-PCS; principal; 2020-10-16)
PROC: 009U3ZX Drainage of Spinal Canal, Percutaneous Approach, Diagnostic (ICD-10-PCS; 2020-10-16)
PROC: 02HV33Z Insertion of Infusion Device into Superior Vena Cava, Percutaneous Approach (ICD-10-PCS; 2020-10-18)
DX: K71.10 Toxic liver disease with hepatic necrosis, without coma (principal); J96.00 Acute respiratory failure, unspecified whether with hypoxia or hypercapnia; G92 Toxic encephalopathy; N17.9 Acute kidney failure, unspecified; E87.2 Acidosis; E83.39 Other disorders of phosphorus metabolism; Z78.1 Physical restraint status; R73.9 Hyperglycemia, unspecified; R68.0 Hypothermia, not associated with low environmental temperature; E87.6 Hypokalemia; F14.159 Cocaine abuse with cocaine-induced psychotic disorder, unspecified; N76.0 Acute vaginitis; Z88.0 Allergy status to penicillin; Z91.040 Latex allergy status

== ENCOUNTER → 2021-02-14 | Outpatient (CLI) | payer OTHER ==
[~2021-02-14] MED LIST changes: +DIPH25CA32 PO; +FLAG500T PO; +LEVO750T13 PO; +MED REC COMMENT
[2021-02-14 10:44] LABS: BASO % 0.5 % (0.0-1.0); EOS # 0.1 10^3/uL (0.0-0.5); EOS % 3.2 % (0.0-3.0); HEMATOCRIT 39.2 % (36.0-47.0); LYMPH % 25.5 % (24.0-44.0); MEAN CORPUSCULAR HEMOGLOBIN 28.1 pg (27.0-33.0); MEAN CORPUSCULAR HGB CONC 33.2 g/dl (32.0-36.5); MEAN CORPUSCULAR VOLUME 84.8 fl (80.0-96.0); MONO # 0.4 10^3/uL (0.0-0.8); MONO % 9.8 % (2.0-8.0); NEUTROPHILS # 2.3 10^3/uL (1.5-8.5); NEUTROPHILS % 60.5 % (36.0-66.0); PLATELET COUNT, AUTOMATED 251 10^3/uL (150-450); RED BLOOD COUNT 4.62 10^6/uL (4.00-5.40); WHITE BLOOD COUNT 3.8 10^3/uL (4.0-10.0)
[2021-02-14 11:00] LABS: INR 1.02; PROTHROMBIN TIME 13.8 SECONDS (12.7-14.5)
[2021-02-14 11:01] LABS: PARTIAL THROMBOPLASTIN TIME 29.6 SECONDS (25.9-37.0)
[2021-02-14 11:10] LABS: ALBUMIN 3.8 GM/DL (3.2-5.2); ALT/SGPT 34 U/L (12-78); BILIRUBIN,DIRECT 0.1 MG/DL (0.0-0.2); BILIRUBIN,TOTAL 0.5 MG/DL (0.2-1.0); C REACTIVE PROTEIN QUANTITATIV < 0.30 MG/DL (0.00-0.30); TOTAL PROTEIN 6.8 GM/DL (6.4-8.2)
[2021-02-14 11:45] LABS: ERYTHROCYTE SEDIMENTATION RATE 4 mm/hr (0-20)
[2021-02-15 13:10] LABS: ANTI-MITOCHONDRIAL ANTIBODY <20.0 Units (0.0-20.0); CERULOPLASMIN 18.6 mg/dL (19.0-39.0)
== END ==
LOC: M LAB 09:49
PROVIDERS: ATTEND Internal Medicine Gastroenterology
DX: R10.13 Epigastric pain (principal)

== ENCOUNTER → 2021-05-13 | Outpatient (CLI) | payer OTHER ==
[2021-05-13 11:17] LABS: ALBUMIN 3.9 GM/DL (3.2-5.2); ALT/SGPT 163 U/L (12-78); BILIRUBIN,DIRECT < 0.1 MG/DL (0.0-0.2); BILIRUBIN,TOTAL 0.2 MG/DL (0.2-1.0)
[2021-05-15 07:11] LABS: CERULOPLASMIN 20.2 mg/dL (19.0-39.0); IGASUB2 169.4 mg/dL (73.2-301.2); IGASUB3 40.5 mg/dL (13.4-97.9); IgA SERUM (part of Subclasses) 209 mg/dL (87-352); TISSUE TRANSGLUTAMINASE IgA <2 U/mL (0-3)
== END ==
LOC: M LAB 09:44
PROVIDERS: ATTEND Internal Medicine Gastroenterology
DX: K76.89 Other specified diseases of liver (principal); R10.13 Epigastric pain

== ENCOUNTER 2021-05-21 21:12 | Emergency (ER) | payer OTHER ==
[~2021-05-21] VITALS: Ht 154.9 cm; Wt 59.1 kg
[2021-05-21] MEDS ORDERED: LORazepam 2 MG TAB PO STA (21:20)
[2021-05-21] MEDS ORDERED: LORazepam 1 MG TAB As Ordered ONE (21:22)
[2021-05-21] MEDS ORDERED: LORazepam 2 MG/ML VIAL IM STA (21:26)
[2021-05-21] MEDS ORDERED: NS 1,000 ML IV ONE ×2 (21:30)
[2021-05-21] MEDS ORDERED: ONDANSETRON 4 MG ORAL DISINTEGRATING TAB PO ONE (21:30)
[2021-05-21] MEDS ORDERED: ONDANSETRON 4MG/2ML VIAL IV ONE (21:30)
[2021-05-21 21:36] LABS: HEMOGLOBIN 13.7 g/dl (12.0-15.5); MEAN CORPUSCULAR HEMOGLOBIN 28.4 pg (27.0-33.0); MEAN CORPUSCULAR HGB CONC 30.4 g/dl (32.0-36.5); MEAN CORPUSCULAR VOLUME 93.4 fl (80.0-96.0); PLATELET COUNT, AUTOMATED 392 10^3/uL (150-450); RED BLOOD COUNT 4.82 10^6/uL (4.00-5.40); WHITE BLOOD COUNT 13.8 10^3/uL (4.0-10.0)
[2021-05-21 22:14] LABS: ACETAMINOPHEN LEVEL < 2.0 UG/ML (10.0-30.0); ALBUMIN 4.3 GM/DL (3.2-5.2); ALT/SGPT 47 U/L (12-78); BILIRUBIN,DIRECT 0.1 MG/DL (0.0-0.2); BILIRUBIN,TOTAL 0.2 MG/DL (0.2-1.0); BLOOD UREA NITROGEN 9 MG/DL (7-18); CALCIUM LEVEL 8.9 MG/DL (8.5-10.1); CARBON DIOXIDE LEVEL 6 MEQ/L (21-32); CHLORIDE LEVEL 106 MEQ/L (98-107); CREATININE FOR GFR 1.51 MG/DL (0.55-1.30); ETHYL ALCOHOL (ETHANOL) 0.113 % (0.000-0.010); GLOMERULAR FILTRATION RATE 41.3 (>60); GLUCOSE, FASTING 206 MG/DL (70-100); POTASSIUM SERUM 3.8 MEQ/L (3.5-5.1); SALICYLATE LEVEL 2.6 MG/DL (5.0-30.0); SODIUM LEVEL 143 MEQ/L (136-145); TOTAL PROTEIN 7.9 GM/DL (6.4-8.2)
[2021-05-21 22:36] LABS: RSV AMPLIFICATION NEGATIVE (NEGATIVE)
[2021-05-22] MEDS ORDERED: ACETAMINOPHEN TAB 650MG DOSE (2X325MG) PO ONE (00:30)
[2021-05-22 01:07] LABS: FREE T4 0.84 NG/DL (0.76-1.46)
[2021-05-22 01:52] LABS: BLOOD UREA NITROGEN 7 MG/DL (7-18); CALCIUM LEVEL 7.3 MG/DL (8.5-10.1); CARBON DIOXIDE LEVEL 21 MEQ/L (21-32); CHLORIDE LEVEL 114 MEQ/L (98-107); CREATININE FOR GFR 0.91 MG/DL (0.55-1.30); GLOMERULAR FILTRATION RATE > 60.0 (>60); GLUCOSE, FASTING 93 MG/DL (70-100); POTASSIUM SERUM 3.1 MEQ/L (3.5-5.1); SODIUM LEVEL 145 MEQ/L (136-145)
[2021-05-22] MEDS ORDERED: POTASSIUM CHLORIDE 10MEQ SR TABLET PO ONE (02:05)
[2021-05-22 02:27] LABS: URINE PREG TEST NEGATIVE (NEGATIVE)
[2021-05-22] MEDS ORDERED: KETOROLAC 30 MG/ML 1ML VIAL IV ONE (02:30)
[2021-05-22 02:45] LABS: AMPHETAMINES LEVEL URINE NEGATIVE (NEGATIVE); BARBITURATES URINE NEGATIVE (NEGATIVE); BENZODIAZEPINES URINE NEGATIVE (NEGATIVE); CANNABINOIDS URINE NEGATIVE (NEGATIVE); COCAINE METABOLITE URINE POSITIVE (NEGATIVE); METHADONE URINE NEGATIVE (NEGATIVE); OPIATES URINE NEGATIVE (NEGATIVE); PHENCYCLIDINE URINE NEGATIVE (NEGATIVE)
[2021-05-22 04:36] VITALS: BP 111/69
== END 2021-05-22 05:00 | disposition home or self-care (01) ==
LOC: M ED 21:12
DX: F10.10 Alcohol abuse, uncomplicated (principal); F19.10 Other psychoactive substance abuse, uncomplicated; R22.33 Localized swelling, mass and lump, upper limb, bilateral; Y04.0XXA Assault by unarmed brawl or fight, initial encounter; Y92.9 Unspecified place or not applicable; Y93.9 Activity, unspecified; Y99.9 Unspecified external cause status; E87.6 Hypokalemia; E11.9 Type 2 diabetes mellitus without complications; R11.2 Nausea with vomiting, unspecified; Z79.899 Other long term (current) drug therapy
CPT/HCPCS: 73130; 80048; 80076; 80143; 80307; 82077; 84439; 84443; 84703; 85027; 87631; 93005; 96360; 96361; 96374; 99285; J1885; J2405

== ENCOUNTER → 2021-08-06 | Outpatient (CLI) | payer OTHER | LOC: M RAD 08:00 | PROVIDERS: ATTEND Internal Medicine Gastroenterology | DX: R10.13 Epigastric pain (principal) | CPT/HCPCS: 78227; A9537 ==

== ENCOUNTER 2021-09-09 20:07 | Observation (INO) | payer OTHER ==
[~2021-09-09] VITALS: Ht 160 cm; Wt 60.4 kg
[2021-09-09] MEDS ORDERED: ALPRAZolam 0.5 MG TAB PO ONE (21:40)
[2021-09-09 22:16] LABS: BASO % 0.2 % (0.0-1.0); HEMATOCRIT 39.1 % (36.0-47.0); HEMOGLOBIN 13.5 g/dl (12.0-15.5); LYMPH # 0.7 10^3/uL (1.5-5.0); MEAN CORPUSCULAR HEMOGLOBIN 29.2 pg (27.0-33.0); MEAN CORPUSCULAR HGB CONC 34.5 g/dl (32.0-36.5); MEAN CORPUSCULAR VOLUME 84.4 fl (80.0-96.0); MONO % 6.6 % (2.0-8.0); NEUTROPHILS # 21.2 10^3/uL (1.5-8.5); NEUTROPHILS % 89.2 % (36.0-66.0); PLATELET COUNT, AUTOMATED 293 10^3/uL (150-450); RED BLOOD COUNT 4.63 10^6/uL (4.00-5.40); WHITE BLOOD COUNT 23.8 10^3/uL (4.0-10.0)
[2021-09-09 22:34] LABS: MONO # 1.6 10^3/uL (0.0-0.8)
[2021-09-09 22:39] LABS: AMPHETAMINES LEVEL URINE NEGATIVE (NEGATIVE); BARBITURATES URINE NEGATIVE (NEGATIVE); BENZODIAZEPINES URINE NEGATIVE (NEGATIVE); CANNABINOIDS URINE NEGATIVE (NEGATIVE); COCAINE METABOLITE URINE POSITIVE (NEGATIVE); METHADONE URINE NEGATIVE (NEGATIVE); OPIATES URINE NEGATIVE (NEGATIVE); PHENCYCLIDINE URINE NEGATIVE (NEGATIVE)
[2021-09-09 22:46] LABS: ALBUMIN 4.3 GM/DL (3.2-5.2); BILIRUBIN,TOTAL 0.4 MG/DL (0.2-1.0); CALCIUM LEVEL 9.5 MG/DL (8.5-10.1); CREATININE FOR GFR 1.39 MG/DL (0.55-1.30); GLOMERULAR FILTRATION RATE 45.2 (>60); MAGNESIUM LEVEL 2.6 MG/DL (1.8-2.4); POTASSIUM SERUM 3.3 MEQ/L (3.5-5.1); TOTAL PROTEIN 7.5 GM/DL (6.4-8.2)
[2021-09-09 22:54] LABS: MB/CK RELATIVE INDEX 0.45 (< OR =4)
[2021-09-09] MEDS ORDERED: NS 1,000 ML IV ONE ×2 (23:05→23:10)
[2021-09-09 23:45] LABS: APPEARANCE, URINE HAZY (CLEAR); BACTERIA, URINE AUTO NEGATIVE (NEGATIVE); BILIRUBIN, URINE AUTO NEGATIVE (NEGATIVE); BLOOD, URINE BLOOD 2+ (NEGATIVE); COLOR, URINE YELLOW (YELLOW); GLUCOSE, URINE (UA) AUTO 2+ mg/dL (NEGATIVE); KETONE, URINE AUTO NEGATIVE (NEGATIVE); LEUKOCYTE ESTERASE, URINE AUTO NEGATIVE (NEGATIVE); MUCUS, URINE SMALL (NEGATIVE); NITRITE, URINE AUTO NEGATIVE (NEGATIVE); PROTEIN, URINE AUTO 1+ mg/dL (NEGATIVE); RBC, URINE AUTO 1 /HPF (0-3); SPECIFIC GRAVITY URINE AUTO 1.009 (1.002-1.035); SQUAMOUS EPITHELIAL CELL UR AU 2 /HPF (0-6); UROBILINOGEN, URINE AUTO 0.2 mg/dL (0.0-2.0); WBC, URINE AUTO 2 /HPF (0-3)
[2021-09-10] VITALS (8 sets, daily range): BP systolic 77–140; BP diastolic 46–78
[2021-09-10 01:42] LABS: BLOOD UREA NITROGEN 12 MG/DL (7-18); CALCIUM LEVEL 6.9 MG/DL (8.5-10.1); CARBON DIOXIDE LEVEL 22 MEQ/L (21-32); CHLORIDE LEVEL 116 MEQ/L (98-107); CREATININE FOR GFR 0.98 MG/DL (0.55-1.30); GLOMERULAR FILTRATION RATE > 60.0 (>60); GLUCOSE, FASTING 82 MG/DL (70-100); POTASSIUM SERUM 3.2 MEQ/L (3.5-5.1); SODIUM LEVEL 144 MEQ/L (136-145)
[2021-09-10 01:57] LABS: CK-MB VALUE MASS 9.2 NG/ML (<3.6); MB/CK RELATIVE INDEX 0.48 (< OR =4)
[2021-09-10] MEDS ORDERED: POTASSIUM CHLORIDE 10MEQ SR TABLET PO ONE (02:00)
[2021-09-10] MEDS ORDERED: NS 1,000 ML IV SCH (03:00)
[2021-09-10] MEDS ORDERED: HOME MED LIST COMPLETE! XX SCH (04:10)
[2021-09-10] MEDS ORDERED: NS 1,000 ML IV ONE (05:15)
[2021-09-10] MEDS: ACETAMINOPHEN TAB 650MG DOSE (2X325MG) PO PRN ×2 (08:33→17:43)
[2021-09-10 15:45] LABS: CALCIUM LEVEL 7.5 MG/DL (8.5-10.1); CREATININE FOR GFR 1.11 MG/DL (0.55-1.30); GLOMERULAR FILTRATION RATE 58.6 (>60); POTASSIUM SERUM 3.6 MEQ/L (3.5-5.1)
[2021-09-10 15:59] LABS: CK-MB VALUE MASS 13.8 NG/ML (<3.6); MB/CK RELATIVE INDEX 0.4 (< OR =4)
[2021-09-10] MEDS: LR 1,000 ML IV SCH (17:43)
[2021-09-11] MEDS: LR 1,000 ML IV SCH (01:56)
[2021-09-11] MEDS: ACETAMINOPHEN TAB 650MG DOSE (2X325MG) PO PRN ×2 (02:25→08:17)
[2021-09-11 06:00] VITALS: BP 110/65
[2021-09-11 06:41] LABS: BLOOD UREA NITROGEN 7 MG/DL (7-18); CALCIUM LEVEL 8.1 MG/DL (8.5-10.1); CARBON DIOXIDE LEVEL 23 MEQ/L (21-32); CHLORIDE LEVEL 115 MEQ/L (98-107); CREATININE FOR GFR 0.82 MG/DL (0.55-1.30); GLOMERULAR FILTRATION RATE > 60.0 (>60); GLUCOSE, FASTING 89 MG/DL (70-100); SODIUM LEVEL 145 MEQ/L (136-145)
== END 2021-09-11 09:44 | disposition home or self-care (01) ==
LOC: M ED 20:07 → M ED INP 20:08 → M PCU 09-10 04:34 → M MSPAV 09-10 18:39
PROVIDERS: ADMIT Internal Medicine; ATTEND Family Medicine
DX: F14.129 Cocaine abuse with intoxication, unspecified (principal); R79.89 Other specified abnormal findings of blood chemistry; M62.82 Rhabdomyolysis; E87.6 Hypokalemia; D72.829 Elevated white blood cell count, unspecified; Z88.0 Allergy status to penicillin; Z91.040 Latex allergy status

== ENCOUNTER 2022-05-23 07:01 | Observation (INO) | payer OTHER ==
[~2022-05-23] VITALS: Ht 167.6 cm; Wt 62.0 kg
[~2022-05-23 07:01] MED LIST changes: +DIPH-435 PO; -DIPH25CA32 PO; +LEVO1TAB40 PO; -LEVO750T13 PO
[2022-05-23] MEDS ORDERED: ACETAMINOPHEN TAB 650MG DOSE (2X325MG) PO ONE (07:10)
[2022-05-23] MEDS ORDERED: LORazepam 2 MG/ML 1ML VIAL IV STA (07:13)
[2022-05-23] MEDS ORDERED: LIDOCAINE 2% 5ML JELLY UROJET TOP ONE (07:15)
[2022-05-23] MEDS ORDERED: cefTRIAXone SOD 2 GM in D5W MINI-BAG PLUS 50 ML IV ONE (07:25)
[2022-05-23] MEDS ORDERED: NS 1,820 ML in IV 1 EA IV ONE (07:25)
[2022-05-23 07:51] LABS: VENOUS BASE EXCESS -1.8 (-2.0-2.0); VENOUS HCO3 21.7 MEQ/L (23.0-27.0); VENOUS O2 SATURATION 98.2 % (60.0-80.0); VENOUS PARTIAL PRESSURE CO2 33.6 mmHg (38.0-50.0); VENOUS PARTIAL PRESSURE O2 104.7 mmHg (30.0-50.0); VENOUS PH 7.427 UNITS (7.330-7.430); VENOUS TOTAL CO2 22.7 MEQ/L (24.0-28.0)
[2022-05-23 07:55] LABS: BASO # 0.1 10^3/uL (0.0-0.2); BASO % 0.4 % (0.0-1.0); EOS % 0.1 % (0.0-3.0); HEMATOCRIT 42.7 % (36.0-47.0); HEMOGLOBIN 14.4 g/dl (12.0-15.5); LYMPH # 1.1 10^3/uL (1.5-5.0); LYMPH % 7.7 % (24.0-44.0); MEAN CORPUSCULAR HEMOGLOBIN 29.1 pg (27.0-33.0); MEAN CORPUSCULAR HGB CONC 33.7 g/dl (32.0-36.5); MEAN CORPUSCULAR VOLUME 86.4 fl (80.0-96.0); MONO # 0.6 10^3/uL (0.0-0.8); MONO % 4.4 % (2.0-8.0); NEUTROPHILS % 86.3 % (36.0-66.0); PLATELET COUNT, AUTOMATED 369 10^3/uL (150-450); RED BLOOD COUNT 4.94 10^6/uL (4.00-5.40); WHITE BLOOD COUNT 13.9 10^3/uL (4.0-10.0)
[2022-05-23 08:06] LABS: INR 1.02; PROTHROMBIN TIME 13.6 SECONDS (12.5-14.5)
[2022-05-23 08:07] LABS: PARTIAL THROMBOPLASTIN TIME 20.2 SECONDS (24.8-34.2)
[2022-05-23 08:15] LABS: ETHYL ALCOHOL (ETHANOL) 0.022 % (0.000-0.010)
[2022-05-23 08:16] LABS: AMYLASE 53 U/L (30-118); C REACTIVE PROTEIN QUANTITATIV < 0.40 MG/DL (<1.0); SALICYLATE LEVEL < 3.0 MG/DL (<30)
[2022-05-23 08:17] LABS: ACETAMINOPHEN LEVEL < 2.0 UG/ML (10.0-20.0); CPK CREATINE PHOSPHOKINASE 373 U/L (34-145)
[2022-05-23 08:20] LABS: ALBUMIN 4.2 G/DL (3.2-5.2); ALKALINE PHOSPHATASE 66 U/L (46-116); ALT/SGPT 55 U/L (7.0-40); AST/SGOT 37 U/L (<34); BILIRUBIN,DIRECT 0.2 MG/DL (<0.4); BILIRUBIN,TOTAL 0.6 MG/DL (0.3-1.2); BLOOD UREA NITROGEN 9 MG/DL (9-23); CALCIUM LEVEL 9.3 MG/DL (8.5-10.1); CARBON DIOXIDE LEVEL 23 MMOL/L (20-31); CHLORIDE LEVEL 103 MMOL/L (98-107); CK-MB VALUE MASS 1.4 NG/ML (<3.6); CREATININE FOR GFR 1.44 MG/DL (0.55-1.30); GLOMERULAR FILTRATION RATE 43.4 (>60); GLUCOSE, FASTING 116 MG/DL (60-100); MB/CK RELATIVE INDEX 0.37 (< OR =4); POTASSIUM SERUM 3.2 MMOL/L (3.5-5.1); SODIUM LEVEL 140 MMOL/L (136-145); THYROID STIMULATING HORMONE 11.019 uIU/ML (0.55-4.78); TOTAL PROTEIN 7.7 G/DL (5.7-8.2)
[2022-05-23 08:23] LABS: AMPHETAMINES LEVEL URINE NEGATIVE (NEGATIVE); BARBITURATES URINE NEGATIVE (NEGATIVE); BENZODIAZEPINES URINE NEGATIVE (NEGATIVE); METHADONE URINE NEGATIVE (NEGATIVE)
[2022-05-23 08:24] LABS: CANNABINOIDS URINE NEGATIVE (NEGATIVE); OPIATES URINE NEGATIVE (NEGATIVE); PHENCYCLIDINE URINE NEGATIVE (NEGATIVE)
[2022-05-23 08:25] LABS: RSV AMPLIFICATION NEGATIVE (NEGATIVE)
[2022-05-23] MEDS ORDERED: ISOVUE-370 76% 100ML VIAL As Ordered ONE (08:41)
[2022-05-23 08:45] LABS: COCAINE METABOLITE URINE POSITIVE (NEGATIVE)
[2022-05-23 08:59] LABS: MAGNESIUM LEVEL 1.5 MG/DL (1.8-2.4)
[2022-05-23] MEDS ORDERED: MAG SULF 1GM/100ML (MAG RUN) 1 GM in IV 1 EA IV ONE (09:00)
[2022-05-23] MEDS ORDERED: POTASSIUM CHLORIDE 10MEQ SR TABLET PO ONE (09:00)
[2022-05-23 09:11] LABS: CK-MB VALUE MASS < 1.0 NG/ML (<3.6)
[2022-05-23 09:20] LABS: CPK CREATINE PHOSPHOKINASE 303 U/L (34-145); MB/CK RELATIVE INDEX 0.33 (< OR =4)
[2022-05-23] MEDS ORDERED: NS 1,000 ML IV ONE ×2 (10:10→10:20)
[2022-05-23] MEDS ORDERED: HOME MED LIST COMPLETE! XX SCH (10:20)
[2022-05-23] MEDS ORDERED: ACETAMINOPHEN TAB 650MG DOSE (2X325MG) PO PRN (11:00)
[2022-05-23] MEDS: CALCIUM CARBONATE 500 MG CHEW U/D PO PRN ×2 (12:36→21:31)
[2022-05-23 14:45] VITALS: BP 133/83
[2022-05-23] MEDS: NS 1,000 ML IV SCH ×2 (15:15→21:24)
[2022-05-23 16:06] VITALS: BP 98/60
[2022-05-23 19:25] LABS: CLOSTRIDIUM DIFFICILE PCR NEGATIVE (NEGATIVE)
[2022-05-23 20:00] VITALS: BP 126/83
[2022-05-23 23:41] VITALS: BP 108/58
[2022-05-24] VITALS: BP 108/58
[2022-05-24 04:00] VITALS: BP 107/67
[2022-05-24] MEDS: NS 1,000 ML IV SCH (05:36)
[2022-05-24 07:19] LABS: HEMATOCRIT 34.2 % (36.0-47.0); MEAN CORPUSCULAR HEMOGLOBIN 29.2 pg (27.0-33.0); MEAN CORPUSCULAR HGB CONC 32.7 g/dl (32.0-36.5); MEAN CORPUSCULAR VOLUME 89.3 fl (80.0-96.0); RED BLOOD COUNT 3.83 10^6/uL (4.00-5.40); WHITE BLOOD COUNT 8.3 10^3/uL (4.0-10.0)
[2022-05-24 07:23] LABS: HEMOGLOBIN 11.2 g/dl (12.0-15.5); PLATELET COUNT, AUTOMATED 199 10^3/uL (150-450)
[2022-05-24 07:50] VITALS: BP 102/62
[2022-05-24 08:47] LABS: ALBUMIN 2.7 G/DL (3.2-5.2); ALKALINE PHOSPHATASE 48 U/L (46-116); ALT/SGPT 70 U/L (7.0-40); AST/SGOT 72 U/L (<34); BILIRUBIN,TOTAL 0.6 MG/DL (0.3-1.2); BLOOD UREA NITROGEN 7 MG/DL (9-23); CALCIUM LEVEL 7.7 MG/DL (8.5-10.1); CARBON DIOXIDE LEVEL 23 MMOL/L (20-31); CHLORIDE LEVEL 109 MMOL/L (98-107); CREATININE FOR GFR 0.73 MG/DL (0.55-1.30); GLOMERULAR FILTRATION RATE > 60.0 (>60); GLUCOSE, FASTING 83 MG/DL (60-100); MAGNESIUM LEVEL 1.6 MG/DL (1.8-2.4); POTASSIUM SERUM 3.5 MMOL/L (3.5-5.1); SODIUM LEVEL 140 MMOL/L (136-145)
[2022-05-24 12:05] VITALS: BP 129/94
== END 2022-05-24 13:05 | disposition home or self-care (01) ==
LOC: EDBD 07:01 → M ED 07:01 → M ED INP 07:02 → INTOOBSV 11:00 → M ED INP 11:00 → UNDOADMOB 11:00 → ENRESERV 13:25 → M PCU 14:42 → M ED INP 14:42 → UNDODISOB 05-24 13:05
PROVIDERS: ADMIT Internal Medicine; ATTEND Internal Medicine
DX: F14.929 Cocaine use, unspecified with intoxication, unspecified (principal); R50.9 Fever, unspecified; R74.02 Elevation of levels of lactic acid dehydrogenase [LDH]; F17.210 Nicotine dependence, cigarettes, uncomplicated; D72.829 Elevated white blood cell count, unspecified; E87.6 Hypokalemia; E83.42 Hypomagnesemia; Z88.0 Allergy status to penicillin; Z91.040 Latex allergy status; M62.82 Rhabdomyolysis
CPT/HCPCS: 36415; 70450; 71045; 71275; 74177; 80047; 80048; 80053; 80076; 80143; 80307; 81001; 82077; 82150; 82550; 82553; 82803; 83605; 83735; 84443; 84702; 85025; 85027; 85610; 85730; 86140; 86850; 86900; 86901; 87040; 87077; 87186; 87324; 87631; 93005; 93041; 94760; 96361; 96365; 96375; 96376; 99285; J0696; J2060; J3475

== ENCOUNTER → 2022-06-17 | Outpatient (CLI) | payer OTHER ==
[2022-06-17 11:15] LABS: ALBUMIN 3.9 G/DL (3.2-5.2); ALKALINE PHOSPHATASE 62 U/L (46-116); ALT/SGPT 27 U/L (7.0-40); AST/SGOT 21 U/L (<34); BILIRUBIN,TOTAL 0.2 MG/DL (0.3-1.2); BLOOD UREA NITROGEN 11 MG/DL (9-23); CALCIUM LEVEL 8.7 MG/DL (8.5-10.1); CARBON DIOXIDE LEVEL 27 MMOL/L (20-31); CHLORIDE LEVEL 106 MMOL/L (98-107); CREATININE FOR GFR 0.66 MG/DL (0.55-1.30); GLOMERULAR FILTRATION RATE > 60.0 (>60); GLUCOSE, FASTING 100 MG/DL (60-100); POTASSIUM SERUM 4.1 MMOL/L (3.5-5.1); SODIUM LEVEL 137 MMOL/L (136-145); TOTAL PROTEIN 6.9 G/DL (5.7-8.2)
[2022-06-17 11:17] LABS: FREE T4 1.06 NG/DL (0.89-1.76); THYROID STIMULATING HORMONE 4.278 uIU/ML (0.55-4.78)
== END ==
LOC: M LAB 10:01
PROVIDERS: ATTEND Student in an Organized Health Care Education/Training Program
DX: M62.82 Rhabdomyolysis (principal); R79.89 Other specified abnormal findings of blood chemistry

== ENCOUNTER 2022-08-16 06:48 | Emergency (ER) | payer OTHER ==
[~2022-08-16] VITALS: Ht 160 cm; Wt 60.0 kg
[2022-08-16] MEDS ORDERED: LORazepam 1 MG TAB PO ONE (07:20)
[2022-08-16] MEDS ORDERED: HOME MED LIST COMPLETE! XX SCH (07:30)
[2022-08-16] MEDS ORDERED: LORazepam 2 MG/ML 1ML VIAL IV STA (08:02)
[2022-08-16] MEDS ORDERED: NS 1,000 ML IV ONE (08:05)
[2022-08-16 08:46] LABS: HEMATOCRIT 41.3 % (36.0-47.0); HEMOGLOBIN 13.9 g/dl (12.0-15.5); MEAN CORPUSCULAR HEMOGLOBIN 28.5 pg (27.0-33.0); MEAN CORPUSCULAR HGB CONC 33.7 g/dl (32.0-36.5); MEAN CORPUSCULAR VOLUME 84.6 fl (80.0-96.0); PLATELET COUNT, AUTOMATED 281 10^3/uL (150-450); RED BLOOD COUNT 4.88 10^6/uL (4.00-5.40); WHITE BLOOD COUNT 14.5 10^3/uL (4.0-10.0)
[2022-08-16 09:19] LABS: AMPHETAMINES LEVEL URINE NEGATIVE (NEGATIVE); BARBITURATES URINE NEGATIVE (NEGATIVE); BENZODIAZEPINES URINE NEGATIVE (NEGATIVE); CANNABINOIDS URINE NEGATIVE (NEGATIVE); METHADONE URINE NEGATIVE (NEGATIVE); OPIATES URINE NEGATIVE (NEGATIVE); PHENCYCLIDINE URINE NEGATIVE (NEGATIVE)
[2022-08-16 09:20] LABS: ETHYL ALCOHOL (ETHANOL) 0.012 % (0.000-0.010)
[2022-08-16 09:20] LABS: COCAINE METABOLITE URINE POSITIVE (NEGATIVE)
[2022-08-16 09:21] LABS: ACETAMINOPHEN LEVEL < 2.0 UG/ML (10.0-20.0)
[2022-08-16 09:22] LABS: ALBUMIN 4.1 G/DL (3.2-5.2); ALKALINE PHOSPHATASE 63 U/L (46-116); ALT/SGPT 30 U/L (7.0-40); AST/SGOT < 8 U/L (<34); BILIRUBIN,DIRECT 0.2 MG/DL (<0.4); BILIRUBIN,TOTAL 0.4 MG/DL (0.3-1.2); BLOOD UREA NITROGEN 12 MG/DL (9-23); CALCIUM LEVEL 8.4 MG/DL (8.5-10.1); CARBON DIOXIDE LEVEL 25 MMOL/L (20-31); CHLORIDE LEVEL 106 MMOL/L (98-107); CPK CREATINE PHOSPHOKINASE 298 U/L (34-145); CREATININE FOR GFR 0.97 MG/DL (0.55-1.30); GLOMERULAR FILTRATION RATE > 60.0 (>60); GLUCOSE, FASTING 52 MG/DL (60-100); POTASSIUM SERUM 3.6 MMOL/L (3.5-5.1); SALICYLATE LEVEL < 3.0 MG/DL (<30); SODIUM LEVEL 141 MMOL/L (136-145); TOTAL PROTEIN 6.9 G/DL (5.7-8.2)
[2022-08-16 09:24] LABS: HCG, SERUM QUALITATIVE NEGATIVE (NEGATIVE)
[2022-08-16 09:25] LABS: FREE T4 1.43 NG/DL (0.89-1.76)
[2022-08-16 09:26] LABS: THYROID STIMULATING HORMONE 4.093 uIU/ML (0.55-4.78)
[2022-08-16] MEDS ORDERED: D5W/0.9% SODIUM CHLORIDE 1,000 ML IV ONE (10:05)
[2022-08-16] MEDS ORDERED: DEXTROSE 50% 50ML SYRINGE IV STA (10:12)
[2022-08-16 16:50] VITALS: BP 124/64
== END 2022-08-16 21:25 | disposition home or self-care (01) ==
LOC: M ED 06:48
DX: F19.959 Other psychoactive substance use, unspecified with psychoactive substance-induced psychotic disorder, unspecified (principal); S00.05XA Superficial foreign body of scalp, initial encounter; R45.851 Suicidal ideations; F32.A Depression, unspecified; F17.200 Nicotine dependence, unspecified, uncomplicated; F14.10 Cocaine abuse, uncomplicated; F10.10 Alcohol abuse, uncomplicated; Z88.0 Allergy status to penicillin; Z91.040 Latex allergy status
CPT/HCPCS: 70450; 70486; 80048; 80076; 80143; 80307; 82077; 82550; 84439; 84443; 84703; 85027; 87635; 93005; 96361; 96365; 96375; 99285; J2060

== ENCOUNTER → 2023-03-25 | Outpatient (REF) | payer OTHER ==
[2023-03-25 23:17] LABS: CHLAMYDIA DNA AMPLIFICATION NEGATIVE (NEGATIVE); GC DNA AMPLIFICATION NEGATIVE (NEGATIVE)
== END ==
LOC: M LAB REF 21:07
PROVIDERS: ATTEND Nurse Practitioner Family
DX: R30.0 Dysuria (principal); B96.20 Unspecified Escherichia coli [E. coli] as the cause of diseases classified elsewhere